=== PATIENT | female | born 1965 | race Caucasian/White ===

== ENCOUNTER 2016-10-12 21:44 | Inpatient (IN) | payer OTHER ==
[2016-10-12] MEDS ORDERED: TYLENOL 325 MG PO STA (22:36)
[2016-10-12] MEDS ORDERED: TYLENOL 325 MG ONE (22:43)
[2016-10-12] MEDS ORDERED: Levofloxacin 500MG/100ML D5W 100 ML IV ONE ×2 (22:46→22:51)
[2016-10-12] MEDS ORDERED: Sodium Chloride 0.9% 1000 ML 1,000 ML IV STA ×2 (22:46→23:56)
[2016-10-12] MEDS ORDERED: solu-MEDROL 125 MG IV ONE (22:46)
[2016-10-12] MEDS ORDERED: DUONEB 0.5-3 MG/3 ml Neb IH ONE ×2 (22:46→22:58)
--- NOTE | 2016-10-12 22:49 | ERPHSYRPT ---
- History of Present Illness Time Seen by Provider: 10/12/16 22:35 Source: patient Exam Limitations: clinical condition Patient Subjective Stated Complaint: reports malaise and fever onset since last week with symptoms getting worse since 2300 last night Triage Nursing Assessment: wc to treatment area - unsteady gait to cart per amputation. resps easy - non-labored. skin flushed/hot/dry - no rash/injury. resps easy - non-labored Physician History: PATIENT WITH HISTORY OF COPD, HOME OXYGEN DEPENDENT COMPLAINS OF FEVER, COUGH AND DYSPNEA FOR 1 WEEK, PROGRESSIVELY WORSE. STATES FEVER THROUGHOUT THE DAY. DENIES CHEST PAIN, PALPITATIONS. 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 Associated Symptoms: cough, muscle aches, sore throat International travel in last 2 weeks: No Allergies/Adverse Reactions: aspirin Allergy (Verified 10/12/16 22:23) Home Medications: Acetaminophen [Acetaminophen ER] 2 tab PO DAILY 10/13/16 [History] Albuterol Sulfate [Ventolin Hfa] 2 puff IH QID 10/13/16 [History] Diclofenac Sodium 75 mg PO BID 10/13/16 [History] Fluconazole 200 mg PO DAILY 10/13/16 [History] Lisinopril 10 mg [Zestril 10 MG] 10 mg PO DAILY 10/13/16 [History] Meloxicam 15 mg [Meloxicam 15 MG] 15 mg PO DAILY 10/13/16 [History] Mirtazapine 30 mg [Remeron 30 mg] 30 mg PO HS 10/13/16 [History] Tiotropium Anderson [Spiriva] 18 mcg IH DAILY 10/13/16 [History] Trazodone HCl 50 mg [Desyrel 50 mg] 50 mg PO STAT 10/13/16 [History] Hx Tetanus, Diphtheria Vaccination/Date Given: No Hx Influenza Vaccination/Date Given: No Hx Pneumococcal Vaccination/Date Given: No Immunizations Up to Date: Yes - Review of Systems Constitutional: Fever, Chills Eyes: No Symptoms Ears, Nose, & Throat: No Symptoms Respiratory: Cough, Dyspnea Cardiac: No Symptoms, No Chest Pain, No Edema, No Syncope Abdominal/Gastrointestinal: No Symptoms, No Abdominal Pain, No Nausea, No Vomiting, No Diarrhea Genitourinary Symptoms: Dysuria Musculoskeletal: Arthralgias, No Back Pain, No Neck Pain Skin: No Rash Neurological: No Dizziness, No Focal Weakness, No Sensory Changes Psychological: No Symptoms Endocrine: No Symptoms All Other Systems: Reviewed and Negative - Past Medical History Pertinent Past Medical History: Yes Neurological History: Migraines, Seizures, Other ENT History: No Pertinent History Cardiac History: Aneurysm, Hypertension, Other Respiratory History: COPD, Emphysema Endocrine Medical History: No Pertinent History Musculoskeletal History: Other GI Medical History: No Pertinent History History: No Pertinent History Psycho-Social History: Anxiety, Depression Female Reproductive Disorders: Cervical Cancer Other Medical History: RT LOBECTOMY, DVT while - Past Surgical History Past Surgical History: Yes Neuro Surgical History: No Pertinent History Cardiac: Cardiac Catheterization Respiratory: Lobectomy Gastrointestinal: Hernia Repair Musculoskeletal: Amputation, Other Female Surgical History: Hysterectomy Other Surgical History: 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 carpel tunnel - Social History Smoking Status: Current every day smoker How long have you smoked: 30 Exposure to second hand smoke: No Drug Use: none Patient Lives Alone: No Significant Family History: no pertinent family hx - Female History Hx Last Menstrual Period: n/a Hx Now: No - Nursing Vital Signs Nursing Vital Signs: Initial Vital Signs Temperature 102.0 F Temperature Source Oral Pulse Rate 89 Respiratory Rate 20 Blood Pressure [] 90/59 Pain Intensity 1 - Physical Exam General Appearance: mild distress Eye Exam: PERRL/EOMI ENT Exam: normal ENT inspection, No pharyngeal erythema, No tonsillar exudate Neck Exam: supple, full range of motion, No meningismus Respiratory Exam: no respiratory distress, decreased breath sounds, decreased air movement, wheezing (TERMINAL EXPIRATORY WHEEZE) Cardiovascular/Chest Exam: normal heart sounds, regular rate/rhythm, No murmur, No edema Gastrointestinal/Abdominal Exam: soft, non tender, no distention Extremity Exam: non-tender, normal range of motion, normal inspection, normal capillary refill Neurologic Exam: alert, oriented x 3, cooperative, car builder II-XII nml as tested, normal mood/affect, sensation nml, No motor deficits Skin Exam: normal color, warm, dry, No rash SpO2 Interpretation: hypoxic SpO2: 90 Oxygen Delivery: Room Air - Course EKG Interpreted by Me: RATE, Sinus Tach, Other (INFERIOR ST SEGMENT DEPRESSION) - Radiology Exams Chest X-ray Interpretation: Interpreted by me (COPD, PREVIOUS RIGHT LOBECTOMY, RIGHT INFRAHILAR INFILTRATE, ) Ordered Tests: Active Orders 24 hr Category Date Time Status Up With Assistance ROUTINE Activity 10/13/16 01:17 Active Admission/Status Order ROUTINE Care 10/13/16 01:17 Active Cath [Catheter-Nubieber Rain] STAT Care 10/12/16 23:36 Active Code Status Order ROUTINE Care 10/13/16 01:17 Active EKG-ER Only STAT Care 10/12/16 22:46 Active IV Care Q6H Care 10/13/16 01:17 Active IV Insertion STAT Care 10/12/16 22:46 Active Intake and Output 09,13,18,21 Care 10/13/16 01:17 Active Oxygen-ED Only NASAL CANNULA 2 lpm Care 10/12/16 22:46 Active Adebayo Hose, Apply ROUTINE Care 10/13/16 01:17 Active Telemetry ROUTINE Care 10/13/16 01:17 Active Vital Signs Q4H Care 10/13/16 01:17 Active Weight,Daily 0600 Care 10/13/16 01:17 Active Regular Diet Diet 10/13/16 Breakfast Active CHEST 1 VIEW (PORTABLE) Stat Exams 10/12/16 22:46 Taken ARTERIAL BLOOD GASES Urgent Lab 10/12/16 22:46 Results BLOOD CULTURE Stat Lab 10/12/16 23:20 Received CBC AM.LAB Lab 10/13/16 04:00 Ordered CBC W DIFF Stat Lab 10/12/16 22:45 Results CMP Stat Lab 10/12/16 22:45 Completed CULTURE, THROAT Stat Lab 10/12/16 22:50 Received Lactic Acid Stat Lab 10/13/16 01:16 Ordered Lactic Acid Urgent Lab 10/12/16 22:46 Results MAGNESIUM Stat Lab 10/12/16 22:45 Completed Manual Differential NC Stat Lab 10/12/16 22:45 Results PROTIME WITH INR Stat Lab 10/12/16 22:45 Completed Pathologist Review Stat Lab 10/12/16 22:45 Results STREP SCREEN-BETA A Stat Lab 10/12/16 22:50 Completed TROPONIN Q3H Lab 10/12/16 22:45 Completed TROPONIN Q3H Lab 10/13/16 02:00 Ordered TROPONIN Q3H Lab 10/13/16 05:00 Ordered TROPONIN Q3H Lab 10/13/16 08:00 Ordered TROPONIN Q3H Lab 10/13/16 11:00 Ordered UA W/ MICROSCOPIC Stat Lab 10/12/16 23:30 Completed VENOUS BLOOD GAS Stat Lab 10/12/16 23:34 Completed Oxygen NASAL CANNULA 2 lpm RT 10/13/16 01:17 Active Pulse Oximetry CONTINUOUS RT 10/13/16 01:19 Active Respiratory Nebulizer Q4H RT 10/13/16 01:17 Active Respiratory Nebulizer STAT RT 10/12/16 22:47 Completed Respiratory Nebulizer STAT RT 10/13/16 00:20 Active Respiratory Nebulizer STAT RT 10/13/16 01:22 Active Respiratory Therapy Consult ROUTINE RT 10/13/16 01:17 Active Transfer Order Routine Transfer 10/13/16 01:16 Ordered Medication Summary Generic Name Dose Route Start Last Admin Trade Name Freq PRN Reason Stop Dose Admin Acetaminophen 500 mg 10/13/16 01:29 Tylenol Extra Strength 500 Mg PO 11/12/16 01:28 Q4HPRN PRN FEVER Piperacillin Sod/Tazobactam Sod 100 mls @ 100 mls/hr 10/13/16 06:00 Zosyn 3.375gm/100 Ml D5w IV 11/12/16 05:59 Q8HT SHRUTHI Sodium Chloride 1,000 mls @ 100 mls/hr 10/13/16 01:30 Sodium Chloride 0.9% 1000 Ml IV 11/12/16 01:29 .Q10H SHRUTHI Levalbuterol HCl 1.25 mg 10/13/16 01:21 Xopenex 1.25 Mg/0.5 Ml Ud Nebule IH 11/12/16 01:20 Q2HPRN PRN DIFFICULTY BREATHING Methylprednisolone Sodium Succinate 80 mg 10/13/16 06:00 Solu-Medrol 125 Mg IV 11/12/16 05:59 Q6HT SHRUTHI Discontinued Medications Generic Name Dose Route Start Last Admin Trade Name Freq PRN Reason Stop Dose Admin Acetaminophen 650 mg 10/12/16 22:36 10/12/16 22:45 Tylenol 325 Mg PO 10/12/16 22:37 650 mg STAT STA Administration Acetaminophen Confirm 10/12/16 22:43 Tylenol 325 Mg Administered 10/12/16 22:44 Dose 650 mg .ROUTE .STK-MED ONE Albuterol/Ipratropium 3 ml 10/12/16 22:46 Duoneb 0.5-3 Mg/3 Ml Neb IH 10/12/16 22:47 STAT ONE Albuterol/Ipratropium Confirm 10/12/16 22:58 Duoneb 0.5-3 Mg/3 Ml Neb Administered 10/12/16 22:59 Dose 3 ml IH .STK-MED ONE Albuterol/Ipratropium 3 ml 10/13/16 00:20 10/13/16 00:41 Duoneb 0.5-3 Mg/3 Ml Neb IH 10/13/16 00:21 3 ml STAT ONE Administration Albuterol/Ipratropium Confirm 10/13/16 00:39 Duoneb 0.5-3 Mg/3 Ml Neb Administered 10/13/16 00:40 Dose 3 ml IH .STK-MED ONE Levofloxacin/Dextrose 100 mls @ 100 mls/hr 10/12/16 22:46 10/12/16 22:57 Levofloxacin 500mg/100ml D5w IV 10/12/16 23:45 100 mls/hr STAT ONE Administration Sodium Chloride 1,000 mls @ 999 mls/hr 10/12/16 22:46 10/12/16 22:57 Sodium Chloride 0.9% 1000 Ml IV 10/12/16 23:46 999 mls/hr .Q1H1M STA Administration Sodium Chloride Confirm 10/12/16 22:50 Sodium Chloride 0.9% 1000 Ml Administered 10/12/16 22:51 Dose 1,000 mls @ ud .ROUTE .STK-MED ONE Levofloxacin/Dextrose Confirm 10/12/16 22:51 Levofloxacin 500mg/100ml D5w Administered 10/12/16 22:52 Dose 100 mls @ ud IV .STK-MED ONE Piperacillin Sod/Tazobactam Sod 100 mls @ 100 mls/hr 10/12/16 23:55 10/13/16 00:01 Zosyn 3.375gm/100 Ml D5w IV 10/13/16 00:54 100 mls/hr STAT ONE Administration Sodium Chloride 1,000 mls @ 999 mls/hr 10/12/16 23:56 10/13/16 01:05 Sodium Chloride 0.9% 1000 Ml IV 10/13/16 00:56 999 mls/hr .Q1H1M STA Administration Piperacillin Sod/Tazobactam Sod Confirm 10/12/16 23:58 Zosyn 3.375gm/100 Ml D5w Administered 10/12/16 23:59 Dose 100 mls @ ud IV .STK-MED ONE Sodium Chloride Confirm 10/13/16 01:03 Sodium Chloride 0.9% 1000 Ml Administered 10/13/16 01:04 Dose 1,000 mls @ ud .ROUTE .STK-MED ONE Methylprednisolone Sodium Succinate 125 mg 10/12/16 22:46 10/12/16 22:55 Solu-Medrol 125 Mg IV 10/12/16 22:47 125 mg STAT ONE Administration Methylprednisolone Sodium Succinate Confirm 10/12/16 22:50 Solu-Medrol 125 Mg Administered 10/12/16 22:51 Dose 125 mg .ROUTE .STK-MED ONE Lab/Rad Data: Laboratory Result Diagrams 10/12/16 22:45 10/12/16 22:45 Laboratory Results 10/12/16 10/12/16 10/12/16 Range/Units 23:34 23:30 22:50 WBC (4.0-10.5) K/mm3 RBC (4.1-5.4) M/mm3 Hgb (12.0-16.0) gm/dl Hct (35-47) % MCV (78-100) fl MCH (26-32) pg MCHC (32-36) g/dl RDW (11.5-14.0) % Plt Count (150-450) K/mm3 MPV (6-9.5) fl Smear Path Review INR (0.8-3.0) Puncture Site pCO2 (35-45) mmHg pO2 (75-100) mmHg Base Excess (-2.0-2.0) O2 Saturation (94-100) g/dF ABG pH (7.35-7.45) ABG HCO3 (22-28) ABG O2 Sat (Measured) (95-100) % Rich Test VBG pH 7.38 (7.32-7.42) VBG pCO2 at Pat Temp 32 L (42-55) mm/Hg VBG pO2 at Pat Temp 40 (25-40) mm/Hg VBG HCO3 18.9 L (22-28) meq/L VBG O2 Sat (Arleen) 78.1 L (95-100) VBG Base Excess -5.3 L (-2.0-2.0) VBG Hemoglobin 12.9 VBG Carboxyhemoglobin 5.1 (0.0-6.9) % T HGB A-a Gradient a/A Ratio Hemoglobin Carboxyhemoglobin (0.0-6.9) % THgb Methemoglobin (1.4-1.5) % POC Potassium 3.7 (3.5-5.1) Temperature C POC O2 Flow Rate % Sodium (136-145) mEq/L Potassium (3.5-5.1) mEq/L Chloride (98-107) mEq/L Carbon Dioxide (21-32) mEq/L Anion Gap (5-15) MEQ/L BUN (9-20) mg/dL Creatinine (0.55-1.30) mg/dl Estimated GFR ML/MIN Glucose (70-110) MG/DL Lactic Acid (0.4-2.0) Calcium (8.5-10.1) mg/dL Magnesium (1.8-2.4) mg/dL Total Bilirubin (0.2-1.0) mg/dL AST (15-37) U/L ALT (12-78) U/L Alkaline Phosphatase (46-116) U/L Troponin I (0.000-0.056) ng/ml Serum Total Protein (6.4-8.2) gm/dL Albumin (3.4-5.0) g/dL Ur Collection Type CATH Urine Color YELLOW (YELLOW) Urine Appearance CLOUDY (CLEAR) Urine pH 5.0 (5-6) Ur Specific [place] >=1.030 (1.005-1.025) Urine Protein 100 (Negative) Urine Glucose (UA) NEGATIVE (NEGATIVE) mg/dL Urine Ketones TRACE (NEGATIVE) Urine Nitrite NEGATIVE (NEGATIVE) Urine Bilirubin MODERATE (NEGATIVE) Urine Urobilinogen 2 (0-1) mg/dL Urine WBC (Auto) SMALL (NEGATIVE) Urine RBC (Auto) SMALL (0-5) Karri/ul Urine Microscopic RBC 2-5 (0-2) /HPF Urine Microscopic WBC 5-10 (0-5) /HPF Ur Epithelial Cells FEW (FEW) /HPF Urine Bacteria FEW (NEGATIVE) /HPF Urine Mucus SLIGHT (NEGATIVE) /HPF Streptococcus Screen NEGATIVE (Negative) Specimen Received 10/12/16:2330 10/12/16 10/12/16 10/12/16 Range/Units 22:46 22:45 22:45 WBC (4.0-10.5) K/mm3 RBC (4.1-5.4) M/mm3 Hgb (12.0-16.0) gm/dl Hct (35-47) % MCV (78-100) fl MCH (26-32) pg MCHC (32-36) g/dl RDW (11.5-14.0) % Plt Count (150-450) K/mm3 MPV (6-9.5) fl Smear Path Review INR 1.29 (0.8-3.0) Puncture Site Pending pCO2 32 L (35-45) mmHg pO2 40 L* (75-100) mmHg Base Excess -5.3 L (-2.0-2.0) O2 Saturation 73.4 L (94-100) g/dF ABG pH 7.38 (7.35-7.45) ABG HCO3 18.9 L (22-28) ABG O2 Sat (Measured) 78.1 L (95-100) % Rich Test Pending VBG pH (7.32-7.42) VBG pCO2 at Pat Temp (42-55) mm/Hg VBG pO2 at Pat Temp (25-40) mm/Hg VBG HCO3 (22-28) meq/L VBG O2 Sat (Arleen) (95-100) VBG Base Excess (-2.0-2.0) VBG Hemoglobin VBG Carboxyhemoglobin (0.0-6.9) % T HGB A-a Gradient 70 a/A Ratio 0.36 Hemoglobin 12.9 Carboxyhemoglobin 5.1 (0.0-6.9) % THgb Methemoglobin 0.9 L (1.4-1.5) % POC Potassium (3.5-5.1) Temperature 37.0 C POC O2 Flow Rate 21 % Sodium (136-145) mEq/L Potassium 3.7 (3.5-5.1) mEq/L Chloride (98-107) mEq/L Carbon Dioxide (21-32) mEq/L Anion Gap (5-15) MEQ/L BUN (9-20) mg/dL Creatinine (0.55-1.30) mg/dl Estimated GFR ML/MIN Glucose (70-110) MG/DL Lactic Acid 2.0 (0.4-2.0) Calcium (8.5-10.1) mg/dL Magnesium (1.8-2.4) mg/dL Total Bilirubin (0.2-1.0) mg/dL AST (15-37) U/L ALT (12-78) U/L Alkaline Phosphatase (46-116) U/L Troponin I < 0.017 (0.000-0.056) ng/ml Serum Total Protein (6.4-8.2) gm/dL Albumin (3.4-5.0) g/dL Ur Collection Type Urine Color (YELLOW) Urine Appearance (CLEAR) Urine pH (5-6) Ur Specific [place] (1.005-1.025) Urine Protein (Negative) Urine Glucose (UA) (NEGATIVE) mg/dL Urine Ketones (NEGATIVE) Urine Nitrite (NEGATIVE) Urine Bilirubin (NEGATIVE) Urine Urobilinogen (0-1) mg/dL Urine WBC (Auto) (NEGATIVE) Urine RBC (Auto) (0-5) Karri/ul Urine Microscopic RBC (0-2) /HPF Urine Microscopic WBC (0-5) /HPF Ur Epithelial Cells (FEW) /HPF Urine Bacteria (NEGATIVE) /HPF Urine Mucus (NEGATIVE) /HPF Streptococcus Screen (Negative) Specimen Received 10/12/16 10/12/16 Range/Units 22:45 22:45 WBC 28.7 H* (4.0-10.5) K/mm3 RBC 4.51 (4.1-5.4) M/mm3 Hgb 14.4 (12.0-16.0) gm/dl Hct 42.3 (35-47) % MCV 93.8 (78-100) fl MCH 31.9 (26-32) pg MCHC 34.0 (32-36) g/dl RDW 13.3 (11.5-14.0) % Plt Count 439 (150-450) K/mm3 MPV 11.1 H (6-9.5) fl Smear Path Review Pending INR (0.8-3.0) Puncture Site pCO2 (35-45) mmHg pO2 (75-100) mmHg Base Excess (-2.0-2.0) O2 Saturation (94-100) g/dF ABG pH (7.35-7.45) ABG HCO3 (22-28) ABG O2 Sat (Measured) (95-100) % Rich Test VBG pH (7.32-7.42) VBG pCO2 at Pat Temp (42-55) mm/Hg VBG pO2 at Pat Temp (25-40) mm/Hg VBG HCO3 (22-28) meq/L VBG O2 Sat (Arleen) (95-100) VBG Base Excess (-2.0-2.0) VBG Hemoglobin VBG Carboxyhemoglobin (0.0-6.9) % T HGB A-a Gradient a/A Ratio Hemoglobin Carboxyhemoglobin (0.0-6.9) % THgb Methemoglobin (1.4-1.5) % POC Potassium (3.5-5.1) Temperature C POC O2 Flow Rate % Sodium 134 L (136-145) mEq/L Potassium 4.4 (3.5-5.1) mEq/L Chloride 100 (98-107) mEq/L Carbon Dioxide 20.4 L (21-32) mEq/L Anion Gap 18.3 H (5-15) MEQ/L BUN 28 H (9-20) mg/dL Creatinine 1.30 (0.55-1.30) mg/dl Estimated GFR 46 ML/MIN Glucose 225 H (70-110) MG/DL Lactic Acid (0.4-2.0) Calcium 8.5 (8.5-10.1) mg/dL Magnesium 1.7 L (1.8-2.4) mg/dL Total Bilirubin 0.2 (0.2-1.0) mg/dL AST 12 L (15-37) U/L ALT 9 L (12-78) U/L Alkaline Phosphatase 152 H (46-116) U/L Troponin I (0.000-0.056) ng/ml Serum Total Protein 6.2 L (6.4-8.2) gm/dL Albumin 2.6 L (3.4-5.0) g/dL Ur Collection Type Urine Color (YELLOW) Urine Appearance (CLEAR) Urine pH (5-6) Ur Specific [place] (1.005-1.025) Urine Protein (Negative) Urine Glucose (UA) (NEGATIVE) mg/dL Urine Ketones (NEGATIVE) Urine Nitrite (NEGATIVE) Urine Bilirubin (NEGATIVE) Urine Urobilinogen (0-1) mg/dL Urine WBC (Auto) (NEGATIVE) Urine RBC (Auto) (0-5) Karri/ul Urine Microscopic RBC (0-2) /HPF Urine Microscopic WBC (0-5) /HPF Ur Epithelial Cells (FEW) /HPF Urine Bacteria (NEGATIVE) /HPF Urine Mucus (NEGATIVE) /HPF Streptococcus Screen (Negative) Specimen Received - Progress Progress Note: 10/12/16 23:13 PATIENT PLACED ONTO SEPSIS PROTOCOL GIVEN BOLUS NORMAL SALINE 1 LITER/HR X 2, ADMINISTERED 2L OXYGEN NASAL CANULA, DUONEB AEROSOL, LEVAQUIN 500MG IVPB, ZOSYN 3.375GM IVPB AFTER 2 SETS OF BLOOD CULTURES OBTAINED. 10/12/16 23:13 10/13/16 00:48 10/13/16 01:11 10/13/16 01:31 Discussed with : Mikal Other (DISCUSSED WITH DR LUNA AT 0105 FOR ADMISSION ) - Departure Time of Disposition: 01:30 Departure Disposition: In-patient Admission Clinical Impression: ACUTE EXACERBATION COPD, PNEUMONIA, URINARY TRACT INFECTION Condition: Stable Critical Care Time: No Referrals: JC FISHER [Primary Care Provider] -
[2016-10-12] MEDS ORDERED: solu-MEDROL 125 MG ONE (22:50)
[2016-10-12] MEDS ORDERED: Sodium Chloride 0.9% 1000 ML 1,000 ML ONE (22:50)
[2016-10-12 22:55] LABS: Mean Cell Volume 93.8 fl (78-100); Mean Corpuscular Hemoglobin 31.9 pg (26-32); Mean Platelet Volume 11.1 fl (6-9.5); Platelet Count 439 K/mm3 (150-450); Red Blood Count 4.51 M/mm3 (4.1-5.4); Red Cell Distribution Width 13.3 % (11.5-14.0)
[2016-10-12 23:03] LABS: White Blood Count 28.7 K/mm3 (4.0-10.5)
[2016-10-12 23:11] LABS: INR 1.29 (0.8-3.0); PROTIME 14.3 SECONDS (9.95-12.35)
[2016-10-12 23:19] LABS: ALBUMIN 2.6 g/dL (3.4-5.0); ANION GAP 18.3 MEQ/L (5-15); BILIRUBIN,TOTAL 0.2 mg/dL (0.2-1.0); Carbon Dioxide 20.4 mEq/L (21-32); MAGNESIUM 1.7 mg/dL (1.8-2.4); Potassium 4.4 mEq/L (3.5-5.1); Total Protein 6.2 gm/dL (6.4-8.2)
[2016-10-12 23:35] LABS: VBG BASE EXCESS -5.3 (-2.0-2.0); VBG CARBOXYHEMOGLOBIN 5.1 % T HGB (0.0-6.9); VBG HCO3- 18.9 meq/L (22-28); VBG HEMOGLOBIN 12.9; VBG O2 SATURATION 78.1 (95-100); VBG POTASSIUM 3.7 (3.5-5.1); VBG pH 7.38 (7.32-7.42)
[2016-10-12 23:49] LABS: Bacteria FEW /HPF (NEGATIVE); COMPLETE URINE MICROSCOPIC? YES; Collection Type CATH; Epithelial Cells FEW /HPF (FEW); Mucus SLIGHT /HPF (NEGATIVE)
[2016-10-12] MEDS ORDERED: Zosyn 3.375GM/100 Ml D5W 100 ML IV ONE ×2 (23:55→23:58)
[2016-10-13] MEDS ORDERED: DUONEB 0.5-3 MG/3 ml Neb IH ONE ×3 (00:20→02:59)
[2016-10-13 00:54] LABS: A-aADO2 70; ARTERIAL BLD GAS O2 SATURATION 78.1 % (95-100); ARTERIAL BLOOD GAS BASE EXCESS -5.3 (-2.0-2.0); ARTERIAL BLOOD GAS FIO2 21 %; ARTERIAL BLOOD GAS pH 7.38 (7.35-7.45)
[2016-10-13 00:55] LABS: ARTERIAL BLOOD GAS PO2 40 mmHg (75-100)
[2016-10-13] MEDS ORDERED: Sodium Chloride 0.9% 1000 ML 1,000 ML ONE (01:03)
[2016-10-13] MEDS ORDERED: Xopenex 1.25 MG/0.5 ML UD NEBULE IH PRN (01:21)
[2016-10-13] MEDS ORDERED: TYLENOL EXTRA STRENGTH 500 MG PO PRN (01:29)
[2016-10-13 01:37] LABS: ALLEN TEST OK? YES
[2016-10-13 02:21] LABS: ATYPICAL LYMPHS 2 %; Total Cells Counted 100
[2016-10-13 02:22] LABS: ANISOCYTOSIS 1+; Platelet Estimate NORMAL (NORMAL)
[2016-10-13] MEDS: Sodium Chloride 0.9% 1000 ML 1,000 ML IV SCH ×2 (05:37→16:28)
[2016-10-13] MEDS: solu-MEDROL 125 MG IV SCH ×3 (05:37→17:21)
[2016-10-13 06:17] LABS: Mean Platelet Volume 11.3 fl (6-9.5); Platelet Count 384 K/mm3 (150-450); Red Blood Count 3.53 M/mm3 (4.1-5.4); Red Cell Distribution Width 13.4 % (11.5-14.0)
[2016-10-13] MEDS: Zosyn 3.375GM/100 Ml D5W 100 ML IV SCH ×3 (06:40→22:34)
[2016-10-13] MEDS: Spiriva 18 Mcg/Cap Inhaler IH SCH (06:45)
[2016-10-13] MEDS: DUONEB 0.5-3 MG/3 ml Neb IH SCH ×5 (06:45→22:34)
--- NOTE | 2016-10-13 09:26 | HP ---
HISTORY OF PRESENT ILLNESS: This is a 51 year-old patient of Dr. Dejon Stoner who presented to the emergency department. She states that she felt like "Total crap". She states it started two weeks ago, was worse Tuesday night with fatigue and sleeping all night until Tuesday. She reports that she always has a cough and there has not been any change to it. She reports two weeks ago she had a flu immunization and last week she had vomiting but no diarrhea. She reports a fever x2 weeks that was tactile and not measured. She reports a long history of chronic obstructive pulmonary disease including having a lung surgery for a bullae and having oxygen ordered at home which she is supposed to wear all the time but just takes as needed. She also reports that she has been losing weight for the past two months and her baseline weight is usually 92 lbs. REVIEW OF SYSTEMS: She has hip pain and a headache. No nausea or vomiting. She has cough and shortness of breath. No abdominal pain. She reports feeling like her hands are swollen. No rashes. PAST MEDICAL HISTORY: Emphysema with home oxygen at 2 liters and history of arthritis in her hips, headache, seizure disorder, history of brain aneurysm repaired. PAST SURGICAL HISTORY: Brain aneurysm. 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 She has a prosthesis that she wears for this. The aneurysm of her brain was repaired in 1998. 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 She has had hernia surgery, bilateral carpal tunnel surgery, hysterectomy. MEDICATIONS: Acetaminophen 2 tablets p.o. daily as needed, Albuterol 2 puffs four times a day, diclofenac 75 mg b.i.d., lisinopril 10 mg q.a.m., meloxicam 15 mg p.o. daily, Remeron 30 mg p.o. q.h.s., Dilantin 100 mg in the morning and 200 mg in the evening. Spiriva 18 mcg daily, trazodone 50 mg b.i.d. ALLERGIES: ASPIRIN. SOCIAL HISTORY: She smokes one half pack per day. She denies any illicit drug use, denies any alcohol. She is not employed. She lives with her boyfriend and reports she rides in his semi with him when he travels. FAMILY HISTORY: Her mother is and had chronic obstructive pulmonary disease and cancer all over her body, the patient reports. Her father is and had lung cancer and when he was 52 years old. PHYSICAL EXAMINATION: VITAL SIGNS: Temperature current 97.6F, temperature max 102F, heart rate 71 to 120 currently 78, respiratory rate 16 to 30 currently 18, blood pressure 92 to 115 over 44 to 64, currently 93/58, weight 34.3 kg. Oxygen saturation 90 to 96% on room air. She is currently on 2 liters oxygen by nasal cannula. GENERAL: The patient is lying in bed, alert and talkative. Her boyfriend's mother is at the bedside. CVS: She has a regular rate and rhythm. CHEST: Clear to auscultation bilaterally. No crackles or wheezes are appreciated. She has equal breath sounds. ABDOMEN: Soft, nontender, nondistended with normal bowel sounds. HEENT: Head - She has a well healed scar on her left scalp area. EXTREMITIES: She has right above knee amputation. No clubbing, cyanosis or edema of her left lower extremity. No rashes. LABORATORY DATA AND TESTS: White blood cell count 28,700 on admission. Repeat white blood cell count this morning was 21,000. Differential last night was 83% neutrophils, 4% lymphs, 11% monocytes. Sodium 134, carbon dioxide 20.4, glucose 225, lactic acid 2.0 yesterday and 1.1 this morning. She has had three serial troponins that have all been negative. UA with 5 to 10 white blood cells. Influenza A and B, respiratory syncytial virus and strep were all negative. Chest x-ray has not been formally read by the radiologist yet. It was read as an infiltrate by the emergency room physician. ASSESSMENT AND PLAN: 1) Pneumonia. She has been started on Levaquin and Zosyn, will continue with these at this time. I have ordered a sputum culture. She has blood cultures in lab. 2) Sepsis. She was placed on sepsis protocol in the emergency room and has received fluids. Her blood pressure continues to be on the low end of normal, will continue to monitor this closely. Will repeat her BMP this a.m. Her white blood cell count is improving. 3) Chronic obstructive pulmonary disease. Will continue with IV steroids, breathing treatments, and oxygen as needed. 4) Renal insufficiency. Her creatinine was slightly elevated on her admission again will repeat this and hold her NSAID's at this time. I explained to the patient that she should not be taking both meloxicam and diclofenac as these are both on her home medication list. 5) Tobacco abuse. The patient was counseled that she needs to quit smoking, will order her a nicotine patch. 6) Hip pain. Due to her renal insufficiency will hold the NSAID's and give her hydrocodone 5/325 mg 1 tablet every four hours as needed for pain while she is here in the hospital. She will need to follow up with primary care doctor concerning her fpc pain control. 7) Deep venous thrombosis prophylaxis. Will start Lovenox.
--- NOTE | 2016-10-13 09:42 | XRAY ---
Indication: Cough and dyspnea. Comparison: August 10, 2016. Portable chest again hyperinflated with bullous emphysema, right mid/lower lung atelectasis/scarring, and right upper lung postsurgical changes. No new infiltrate, consolidation, or large effusion. Heart and mediastinal structures stable and within normal limits. Bony thorax intact again with old left sixth rib fracture. Impression: Stable nonacute chest again with chronic features.
[2016-10-13] MEDS ORDERED: Spiriva 18 Mcg/Cap Inhaler IH SCH (10:00)
[2016-10-13] MEDS: Dilantin 100 MG PO SCH ×2 (10:06→21:24)
[2016-10-13] MEDS: DESYREL 50 MG PO SCH ×2 (10:06→21:25)
[2016-10-13] MEDS: NICODERM CQ 14 MG TOP SCH (10:06)
[2016-10-13] MEDS: NORCO 5/325 MG PO PRN ×3 (10:06→22:33)
[2016-10-13] MEDS: ENOXAPARIN SODIUM SQ SCH (10:06)
[2016-10-13 11:57] LABS: ANION GAP 13.5 MEQ/L (5-15); BLOOD UREA NITROGEN 25 mg/dL (9-20); CHLORIDE 107 mEq/L (98-107); Carbon Dioxide 19.4 mEq/L (21-32); Glucose 225 MG/DL (70-110); Potassium 3.9 mEq/L (3.5-5.1); SODIUM 136 mEq/L (136-145)
[2016-10-13] MEDS ORDERED: NovoLOG Insulin SQ PRN (17:08)
[2016-10-13] MEDS: REMERON 30 MG PO SCH (21:25)
[2016-10-13] MEDS ORDERED: Levaquin 250MG/50ML D5W 50 ML IV SCH (22:00)
[2016-10-14] MEDS: solu-MEDROL 125 MG IV SCH ×4 (00:30→21:49)
[2016-10-14] MEDS: DUONEB 0.5-3 MG/3 ml Neb IH SCH ×5 (03:56→19:28)
[2016-10-14] MEDS: Sodium Chloride 0.9% 1000 ML 1,000 ML IV SCH ×2 (04:10→15:45)
[2016-10-14] MEDS: Zosyn 3.375GM/100 Ml D5W 100 ML IV SCH ×3 (05:32→13:47)
[2016-10-14] MEDS: NORCO 5/325 MG PO PRN ×3 (05:32→21:58)
[2016-10-14 05:40] LABS: Mean Cell Volume 95.7 fl (78-100); Mean Corpuscular Hemoglobin 31.2 pg (26-32); Mean Platelet Volume 10.4 fl (6-9.5); Platelet Count 435 K/mm3 (150-450); Red Blood Count 3.46 M/mm3 (4.1-5.4); Red Cell Distribution Width 13.5 % (11.5-14.0); White Blood Count 19.5 K/mm3 (4.0-10.5)
[2016-10-14 05:59] LABS: ANION GAP 14.4 MEQ/L (5-15); BLOOD UREA NITROGEN 14 mg/dL (9-20); CHLORIDE 111 mEq/L (98-107); Carbon Dioxide 22.8 mEq/L (21-32); Glucose 197 MG/DL (70-110); Potassium 3.9 mEq/L (3.5-5.1); SODIUM 144 mEq/L (136-145)
[2016-10-14 06:17] LABS: Total Cells Counted 100
[2016-10-14 06:18] LABS: ANISOCYTOSIS 1+; Platelet Estimate NORMAL (NORMAL); Poikilocytosis 1+
[2016-10-14] MEDS: Spiriva 18 Mcg/Cap Inhaler IH SCH (06:40)
--- NOTE | 2016-10-14 09:32 | PCM.NOTE ---
Date and Time: 10/14/16926 Subjective Assessment: She reports she in general just feels bad. She continues to have some cough and shortness of breath. Her appetite is better. She states she had a seizure last night where she was shakey and state she told her nurse about this. She reports missing her dilantin Tuesday and Tuesday but also reports having 4-5 seizures a month. She reports she does not see a Neurologist as an outpatient. She also reports she has never had high blood glucoses before but she does have a family history of diabetes. She has a documented weight gain, but denies feeling like she has any swelling. She reports the pain medication is helping with her back pain. - Review of Systems Constitutional: Fatigue Eyes: No Symptoms Ears, Nose, & Throat: No Symptoms Respiratory: Cough, Short Of Breath, Wheezing Cardiac: No Symptoms Abdominal/Gastrointestinal: No Symptoms Genitourinary Symptoms: No Symptoms Musculoskeletal: No Symptoms Skin: No Symptoms Neurological: No Symptoms Objective Exam General Appearance: no apparent distress, alert Neurologic Exam: alert, cooperative, normal mood/affect Skin Exam: normal color, warm, dry, No rash Respiratory Exam: lungs clear, airway intact, diminished breath sounds, No respiratory distress, No crackles/rales, No rhonchi, No wheezing Cardiovascular Exam: regular rate/rhythm, No murmur, No friction rub, No gallop Gastrointestinal/Abdomen Exam: soft, normal bowel sounds, No tenderness, No distention, No mass Extremity Exam: other (no c/c/e in right leg, 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) OBJECTIVE DATA Vital Signs: Vital Signs - 24 hr Temp Pulse Resp BP Pulse Ox 10/14/16 07:00 75 16 98 10/14/16 04:00 97.1 F 80 20 118/60 93 L 10/14/16 03:56 80 20 93 L 10/14/16 00:00 97.7 F 92 H 20 87/52 96 10/13/16 22:34 91 H 20 96 10/13/16 20:07 77 20 92 L 10/13/16 20:00 98.3 F 87 23 102/64 94 L 10/13/16 16:23 97.9 F 82 20 103/57 95 10/13/16 16:00 20 10/13/16 15:00 72 16 92 L 10/13/16 14:13 110/62 02/22/17 12:00 18 10/13/16 11:42 98 F 79 18 83/50 95 10/13/16 10:27 81 18 95 Oxygen-Last 24 hours O2 Percentage 2 Liters = 28% O2 Percentage 2 Liters = 28% O2 Percentage 2 Liters = 28% O2 Percentage 2 Liters = 28% Pain Assessment - Last Documented Pain Intensity 7 Pain Scale Used 0-10 Pain Scale Intake and Output: Intake & Output 10/12/16 10/13/16 10/14/16 10/15/16 06:59 06:59 06:59 06:59 Intake Total 511 4730 Output Total 450 1700 Balance 61 3030 Weight 34.337 kg 37.376 kg Lab Results: Lab Results-Last 24 Hours 10/13/16 10/13/16 10/14/16 Range/Units 11:00 11:00 05:06 WBC (4.0-10.5) K/mm3 RBC (4.1-5.4) M/mm3 Hgb (12.0-16.0) gm/dl Hct (35-47) % MCV (78-100) fl MCH (26-32) pg MCHC (32-36) g/dl RDW (11.5-14.0) % Plt Count (150-450) K/mm3 MPV (6-9.5) fl Segmented Neutrophils (36.0-66.0) % Lymphocytes (Manual) (24-44) % Monocytes (Manual) (0.0-12.0) % Platelet Estimate (NORMAL) Poikilocytosis Anisocytosis Sodium 136 (136-145) mEq/L Potassium 3.9 (3.5-5.1) mEq/L Chloride 107 (98-107) mEq/L Carbon Dioxide 19.4 L (21-32) mEq/L Anion Gap 13.5 (5-15) MEQ/L BUN 25 H (9-20) mg/dL Creatinine 0.94 (0.55-1.30) mg/dl Estimated GFR > 60 ML/MIN Glucose 225 H (70-110) MG/DL Hemoglobin A1c 6.0 (4.5-6.2) Calcium 7.8 L (8.5-10.1) mg/dL Troponin I < 0.017 (0.000-0.056) ng/ml 10/14/16 10/14/16 Range/Units 05:06 05:06 WBC 19.5 H (4.0-10.5) K/mm3 RBC 3.46 L (4.1-5.4) M/mm3 Hgb 10.8 L (12.0-16.0) gm/dl Hct 33.1 L (35-47) % MCV 95.7 (78-100) fl MCH 31.2 (26-32) pg MCHC 32.6 (32-36) g/dl RDW 13.5 (11.5-14.0) % Plt Count 435 (150-450) K/mm3 MPV 10.4 H (6-9.5) fl Segmented Neutrophils 95 H (36.0-66.0) % Lymphocytes (Manual) 3 L (24-44) % Monocytes (Manual) 2 (0.0-12.0) % Platelet Estimate NORMAL (NORMAL) Poikilocytosis 1+ Anisocytosis 1+ Sodium 144 (136-145) mEq/L Potassium 3.9 (3.5-5.1) mEq/L Chloride 111 H (98-107) mEq/L Carbon Dioxide 22.8 (21-32) mEq/L Anion Gap 14.4 (5-15) MEQ/L BUN 14 (9-20) mg/dL Creatinine 0.67 (0.55-1.30) mg/dl Estimated GFR > 60 ML/MIN Glucose 197 H (70-110) MG/DL Hemoglobin A1c (4.5-6.2) Calcium 8.2 L (8.5-10.1) mg/dL Troponin I (0.000-0.056) ng/ml Assessment/Plan (1) Pneumonia Current Visit: Yes Status: Acute Qualifiers: Laterality: left Lung location: unspecified part of lung Assessment & Plan: Continue with zosyn and levofloxacin. WBC count is improving. Code(s): J18.9 - PNEUMONIA, UNSPECIFIED ORGANISM (2) Sepsis Current Visit: Yes Status: Acute Assessment & Plan: She is slowly improving. Her blood pressure continues to be in the low end of normal and her home antihypertensive is being held. (3) COPD with acute exacerbation Current Visit: Yes Status: Acute Assessment & Plan: Will decrease IV steroids today. Continue with oxygen. Continue antibiotics and breathing treatments. Code(s): J44.1 - CHRONIC OBSTRUCTIVE PULMONARY DISEASE W (ACUTE) EXACERBATION (4) Renal insufficiency Current Visit: Yes Status: Acute Assessment & Plan: Improved after IV fluids. (5) History of seizure disorder Current Visit: Yes Status: Acute Assessment & Plan: Check Dilantin level and continue Dilantin. Instructed patient that she should probably see a Neurologist as an outpatient. Code(s): Z86.69 - PERSONAL HISTORY OF DIS OF THE NERVOUS SYS AND SENSE ORGANS
[2016-10-14] MEDS: NICODERM CQ 14 MG TOP SCH (09:44)
[2016-10-14] MEDS: ENOXAPARIN SODIUM SQ SCH (09:44)
[2016-10-14] MEDS: DESYREL 50 MG PO SCH ×2 (09:44→21:50)
[2016-10-14] MEDS: Dilantin 100 MG PO SCH ×2 (10:38→21:51)
[2016-10-14] MEDS: REMERON 30 MG PO SCH (21:50)
[2016-10-14] MEDS: Levofloxacin 500MG/100ML D5W 100 ML IV SCH (21:53)
[2016-10-15] MEDS: solu-MEDROL 125 MG IV SCH ×3 (05:24→22:24)
[2016-10-15] MEDS: NORCO 5/325 MG PO PRN ×3 (05:24→22:25)
[2016-10-15 05:48] LABS: Mean Cell Volume 97.1 fl (78-100); Mean Platelet Volume 10.7 fl (6-9.5); Platelet Count 498 K/mm3 (150-450); Red Blood Count 3.46 M/mm3 (4.1-5.4); White Blood Count 16.1 K/mm3 (4.0-10.5)
[2016-10-15 06:04] LABS: Mean Corpuscular Hemoglobin 32.3 pg (26-32)
[2016-10-15 06:29] LABS: ANION GAP 13.3 MEQ/L (5-15); BLOOD UREA NITROGEN 13 mg/dL (9-20); CHLORIDE 111 mEq/L (98-107); Carbon Dioxide 23.3 mEq/L (21-32); Glucose 116 MG/DL (70-110); Potassium 4.7 mEq/L (3.5-5.1); SODIUM 143 mEq/L (136-145)
[2016-10-15] MEDS: Zosyn 3.375GM/100 Ml D5W 100 ML IV SCH ×3 (06:46→22:20)
[2016-10-15 07:06] LABS: BAND 2 % (0.0-2.0); Platelet Estimate NORMAL (NORMAL); Total Cells Counted 100
[2016-10-15] MEDS: Spiriva 18 Mcg/Cap Inhaler IH SCH (07:37)
[2016-10-15] MEDS: DUONEB 0.5-3 MG/3 ml Neb IH SCH ×4 (07:37→18:31)
--- NOTE | 2016-10-15 08:54 | PCM.NOTE ---
Date and Time: 10/15/1649 Subjective Assessment: She reports that she feels anxious and has continue dyspnea. She had to have her oxygen increased last night and now she is on 5L O2. She currently does not have any home oxygen. She reports her boyfriend had to come back from his automobile or truck rental dispatcher because he is sick too. She reports being anxious about this. - Review of Systems Constitutional: Fatigue Eyes: No Symptoms Ears, Nose, & Throat: No Symptoms Respiratory: Cough, Short Of Breath, Wheezing Cardiac: No Symptoms Abdominal/Gastrointestinal: No Symptoms Genitourinary Symptoms: No Symptoms Musculoskeletal: No Symptoms Skin: No Symptoms Neurological: No Symptoms Objective Exam General Appearance: no apparent distress, alert Neurologic Exam: alert, cooperative, normal mood/affect Skin Exam: normal color, warm, dry, No rash Respiratory Exam: normal breath sounds, prolonged expirations, No crackles/rales , No rhonchi, No wheezing Cardiovascular Exam: regular rate/rhythm, normal heart sounds, No murmur, No friction rub, No gallop Gastrointestinal/Abdomen Exam: soft, normal bowel sounds, No tenderness, No distention, No mass, No guarding Extremity Exam: normal inspection, other (no c/c/e) OBJECTIVE DATA Vital Signs: Vital Signs - 24 hr Temp Pulse Resp BP BP Pulse Ox 10/15/16 08:00 97.9 F 73 18 142/81 130/69 93 L 10/15/16 07:43 66 18 93 L 10/15/16 04:00 98.1 F 68 20 135/87 95 10/15/16 00:00 22 10/14/16 23:24 98.0 F 87 22 124/74 93 L 10/14/16 20:00 97.8 F 87 24 130/69 90 L 10/14/16 19:42 92 H 24 90 L 10/14/16 16:00 97.4 F 88 24 137/86 92 L 10/14/16 14:22 87 20 92 L 10/14/16 12:00 20 10/14/16 11:06 97.8 F 87 20 100/57 91 L 10/14/16 10:36 71 16 97 Oxygen-Last 24 hours O2 Percentage 5 Liters = 40% O2 Percentage 5 Liters = 40% O2 Percentage 3 Liters = 32% O2 Percentage 3 Liters = 32% O2 Percentage 2 Liters = 28% O2 Percentage 2 Liters = 28% Pain Assessment - Last Documented Pain Intensity 6 Pain Scale Used 0-10 Pain Scale Intake and Output: Intake & Output 10/13/16 10/14/16 10/15/16 10/16/16 06:59 06:59 06:59 06:59 Intake Total 511 4730 3862 Output Total 450 1700 1150 Balance 61 3030 2712 Weight 34.337 kg 37.376 kg 39.179 kg Lab Results: Accuchecks Date 10/14/16 Date 10/14/16 Time 16:30 Time 11:30 Accucheck Value: 110 Accucheck Value: 158 Lab Results-Last 24 Hours 10/14/16 10/15/16 10/15/16 Range/Units 05:00 05:07 05:07 WBC 16.1 H (4.0-10.5) K/mm3 RBC 3.46 L (4.1-5.4) M/mm3 Hgb 11.2 L (12.0-16.0) gm/dl Hct 33.6 L (35-47) % MCV 97.1 (78-100) fl MCH 32.3 H (26-32) pg MCHC 33.3 (32-36) g/dl RDW 14.0 (11.5-14.0) % Plt Count 498 H (150-450) K/mm3 MPV 10.7 H (6-9.5) fl Segmented Neutrophils 92 H (36.0-66.0) % Band Neutrophils 2 (0.0-2.0) % Lymphocytes (Manual) 5 L (24-44) % Monocytes (Manual) 1 (0.0-12.0) % Differential Comment NORMAL Platelet Estimate NORMAL (NORMAL) Sodium 143 (136-145) mEq/L Potassium 4.7 (3.5-5.1) mEq/L Chloride 111 H (98-107) mEq/L Carbon Dioxide 23.3 (21-32) mEq/L Anion Gap 13.3 (5-15) MEQ/L BUN 13 (9-20) mg/dL Creatinine 0.61 (0.55-1.30) mg/dl Estimated GFR > 60 ML/MIN Glucose 116 H (70-110) MG/DL Calcium 7.8 L (8.5-10.1) mg/dL Phenytoin 11.8 (10-20) ug/ml Multi-Disciplinary Progress Notes: Multi-Disciplinary Progress Notes 10/14/16 21:35 Respiratory Note by Lindsay,Camilo CALLED TO PT RM DUE TO LOW SATS. PT WAS 89% ON 3LPM. SHE STATES SHE WEARS 2LPM PRN AT [facility]. THIS ISSUE OF LOW SATS WHILE ON O2 HAS STARTED THIS KAROL. I TURNED O2 UP TO 4 AND PT CAME UP TO 91%. I SWITCHED HER TO 4LPM OXY MASK AND SHE CAME UP TO 95%. I TURNED IT DOWN TO 3LPM AND SHE MAINTAINED A SAT OF 94%. LEFT HER ON 3LPM AND INFORMED NURSING. Initialized on 10/14/16 21:35 - END OF NOTE Assessment/Plan (1) Pneumonia Current Visit: Yes Status: Acute Qualifiers: Laterality: left Lung location: unspecified part of lung Assessment & Plan: Continue zosyn and levofloxacin. Blood cultures in lab and sputum cultures ordered. Continue oxygen as needed. Code(s): J18.9 - PNEUMONIA, UNSPECIFIED ORGANISM (2) Sepsis Current Visit: Yes Status: Acute Assessment & Plan: Her blood pressure is much improved. Her IV fluids have been turned down to 30 mL/hr to keep her IV open. Resolving sepsis. (3) COPD with acute exacerbation Current Visit: Yes Status: Acute Assessment & Plan: Continue IV steroids and breathing treatments and antibiotics. She will need qualified for home oxygen before her discharge. Code(s): J44.1 - CHRONIC OBSTRUCTIVE PULMONARY DISEASE W (ACUTE) EXACERBATION (4) Renal insufficiency Current Visit: Yes Status: Resolved (5) History of seizure disorder Current Visit: Yes Status: Acute Assessment & Plan: Her Dilantin level was within the normal range. Code(s): Z86.69 - PERSONAL HISTORY OF DIS OF THE NERVOUS SYS AND SENSE ORGANS (6) Anxiety Current Visit: Yes Status: Acute Assessment & Plan: Start klonopin po as needed for anxiety while she is here in the hospital. Code(s): F41.9 - ANXIETY DISORDER, UNSPECIFIED (7) Hypoxia Current Visit: Yes Status: Acute Assessment & Plan: Increasing hypoxia. Recheck chest x-ray and D-dimer. Code(s): R09.02 - HYPOXEMIA
[2016-10-15] MEDS: NICODERM CQ 14 MG TOP SCH (08:55)
[2016-10-15] MEDS: Dilantin 100 MG PO SCH ×2 (08:55→22:25)
[2016-10-15] MEDS: DESYREL 50 MG PO SCH ×2 (08:55→22:25)
[2016-10-15] MEDS: Sodium Chloride 0.9% 1000 ML 1,000 ML IV SCH (08:55)
[2016-10-15] MEDS: ENOXAPARIN SODIUM SQ SCH (08:56)
[2016-10-15] MEDS ORDERED: PNEUMOVAX 23 IM ONE (10:00)
--- NOTE | 2016-10-15 10:27 | XRAY ---
Exam: Two-view chest from 10/15/2016. Comparison: AP upright portable chest film from 11/17/2015. Indication: Pneumonia, shortness of breath. Findings: Upright sitting AP and lateral chest films were obtained. The heart size appears normal. The pulmonary vessels are not congested. There is hyperinflation of the chest consistent with bullous emphysema within both upper lung [place]. However, there is suggestion of a developing 2.2 cm x 1.4 cm nodular density adjacent to the suture line within the central right upper lung field. A malignant pulmonary nodule must be strongly considered. Follow-up CT of the chest with IV contrast is recommended. Other stable chronic postsurgical changes are seen within the right upper and peripheral right midlung field. I note some vertically oriented discoid atelectasis at the medial aspect of both lung bases and a thin transverse line of linear atelectasis within the central left lower lung field. Although no central vascular congestion is seen, there are new small bilateral pleural effusions present. No pneumothorax is seen. The bones appear grossly intact. Impression: 1. There appears to be a 2.2 cm x 1.4 cm soft tissue nodule within the central aspect of the right upper lung field adjacent to a postsurgical suture line. A malignant lung nodule is not excluded. Further evaluation with a CT of the chest with IV contrast is recommended. 2. Bullous emphysema affecting primarily the upper lung [place]. Postsurgical changes are again seen within the right upper to midlung field. 3. New small bibasilar pleural effusions. I also note some new subsegmental atelectasis at the medial aspect of both lung bases as well as the left infrahilar projection extending transversely. 4. No other acute cardiopulmonary disease is seen.
[2016-10-15] MEDS: Klonopin 0.5 MG PO PRN (16:53)
[2016-10-15] MEDS: Levofloxacin 500MG/100ML D5W 100 ML IV SCH (22:21)
[2016-10-15] MEDS: REMERON 30 MG PO SCH (22:25)
[2016-10-16] MEDS: solu-MEDROL 125 MG IV SCH ×3 (05:31→21:20)
[2016-10-16] MEDS: Zosyn 3.375GM/100 Ml D5W 100 ML IV SCH ×3 (05:31→22:34)
[2016-10-16] MEDS: NORCO 5/325 MG PO PRN ×2 (05:32→15:13)
[2016-10-16] MEDS: Klonopin 0.5 MG PO PRN ×3 (05:37→21:20)
[2016-10-16 06:10] LABS: Mean Cell Volume 97.2 fl (78-100); Mean Corpuscular Hemoglobin 31.6 pg (26-32); Mean Platelet Volume 11.1 fl (6-9.5); Platelet Count 457 K/mm3 (150-450); Red Blood Count 3.54 M/mm3 (4.1-5.4); White Blood Count 11.7 K/mm3 (4.0-10.5)
[2016-10-16] MEDS: Spiriva 18 Mcg/Cap Inhaler IH SCH (06:30)
[2016-10-16] MEDS: DUONEB 0.5-3 MG/3 ml Neb IH SCH ×4 (06:30→18:45)
[2016-10-16 06:35] LABS: ANION GAP 11.5 MEQ/L (5-15); BLOOD UREA NITROGEN 9 mg/dL (9-20); CHLORIDE 109 mEq/L (98-107); Carbon Dioxide 27.2 mEq/L (21-32); Glucose 101 MG/DL (70-110); Potassium 4.5 mEq/L (3.5-5.1); SODIUM 143 mEq/L (136-145)
[2016-10-16 08:32] LABS: BAND 1 % (0.0-2.0); Platelet Estimate NORMAL (NORMAL); Total Cells Counted 100
[2016-10-16] MEDS: ENOXAPARIN SODIUM SQ SCH (08:35)
[2016-10-16] MEDS: Dilantin 100 MG PO SCH ×2 (08:36→21:19)
[2016-10-16] MEDS: DESYREL 50 MG PO SCH ×2 (08:36→21:20)
[2016-10-16] MEDS: NICODERM CQ 14 MG TOP SCH (08:36)
[2016-10-16] MEDS: Levofloxacin 500MG/100ML D5W 100 ML IV SCH (21:20)
[2016-10-16] MEDS: REMERON 30 MG PO SCH (21:20)
[2016-10-17] MEDS: NORCO 5/325 MG PO PRN ×3 (04:34→22:54)
[2016-10-17] MEDS: solu-MEDROL 125 MG IV SCH (05:45)
[2016-10-17] MEDS: Zosyn 3.375GM/100 Ml D5W 100 ML IV SCH ×3 (05:45→23:00)
[2016-10-17] MEDS: DUONEB 0.5-3 MG/3 ml Neb IH SCH ×4 (06:17→19:16)
[2016-10-17] MEDS: Spiriva 18 Mcg/Cap Inhaler IH SCH (06:18)
[2016-10-17 06:23] LABS: Mean Cell Volume 97.1 fl (78-100); Mean Corpuscular Hemoglobin 31.7 pg (26-32); Mean Platelet Volume 11.7 fl (6-9.5); Platelet Count 391 K/mm3 (150-450); Red Cell Distribution Width 13.7 % (11.5-14.0); White Blood Count 8.7 K/mm3 (4.0-10.5)
[2016-10-17 06:51] LABS: ANION GAP 6.8 MEQ/L (5-15); BLOOD UREA NITROGEN 12 mg/dL (9-20); CHLORIDE 108 mEq/L (98-107); Carbon Dioxide 30.2 mEq/L (21-32); Glucose 93 MG/DL (70-110); Potassium 4.3 mEq/L (3.5-5.1); SODIUM 141 mEq/L (136-145)
[2016-10-17] MEDS: NICODERM CQ 14 MG TOP SCH (08:29)
[2016-10-17] MEDS: Dilantin 100 MG PO SCH ×2 (08:29→22:54)
[2016-10-17] MEDS: ENOXAPARIN SODIUM SQ SCH (08:29)
[2016-10-17] MEDS: DESYREL 50 MG PO SCH ×2 (08:29→22:54)
[2016-10-17 08:45] LABS: Platelet Estimate NORMAL (NORMAL); Total Cells Counted 100
[2016-10-17] MEDS: DELTASONE 10 MG PO SCH (10:18)
[2016-10-17] MEDS: Klonopin 0.5 MG PO PRN ×2 (14:37→22:55)
[2016-10-17] MEDS: Levofloxacin 500MG/100ML D5W 100 ML IV SCH (22:54)
[2016-10-17] MEDS: REMERON 30 MG PO SCH (22:54)
[2016-10-18] MEDS: Zosyn 3.375GM/100 Ml D5W 100 ML IV SCH (06:21)
[2016-10-18] MEDS: DUONEB 0.5-3 MG/3 ml Neb IH SCH ×2 (06:45→10:21)
[2016-10-18] MEDS: Spiriva 18 Mcg/Cap Inhaler IH SCH (07:30)
[2016-10-18] MEDS: Klonopin 0.5 MG PO PRN (07:33)
[2016-10-18] MEDS: NORCO 5/325 MG PO PRN (07:33)
--- NOTE | 2016-10-18 08:49 | XRAY ---
Indication: Cough. Comparison: October 15, 2016. AP/lateral chest demonstrates new small focus of right base infiltrate/atelectasis/effusion. Otherwise stable extensive bullous emphysema, right mid/lower lung atelectasis/scarring, right upper lung postsurgical changes, and blunting of both costophrenic angles.
--- NOTE | 2016-10-18 10:11 | XRAY ---
Indication: Right lung nodule reported on chest x-ray of October 15, 2016. Multiple contiguous axial images obtained through the chest without contrast. Comparison: January 01, 2015. New mild/moderate bilateral dependent effusions left greater than right. Also new bilateral dependent atelectasis greatest in the right base. No focal infiltrate. Stable right upper lobectomy and extensive bullous emphysematous changes. Stable 1 cm subpleural noncalcified nodule in the posterior medial superior segment of the left lower lobe. Also stable small noncalcified nodular densities in the right middle lobe and left lower lobe. Heart is not enlarged. Aorta remains minimally calcified without aneurysmal dilatation. No pathologic mediastinal lymphadenopathy. Bony thorax intact. Limited noncontrasted upper abdomen is unremarkable. Impression: 1. New bilateral pleural effusions and dependent atelectasis without cardiomegaly. 2. No new pulmonary mass/nodule. 3. Stable extensive pulmonary emphysema, right upper lobectomy, and noncalcified nodular densities. CT DI 6.70
[2016-10-18] MEDS: DESYREL 50 MG PO SCH (10:12)
[2016-10-18] MEDS: NICODERM CQ 14 MG TOP SCH (10:12)
[2016-10-18] MEDS: Dilantin 100 MG PO SCH (10:12)
[2016-10-18] MEDS: DELTASONE 10 MG PO SCH (10:13)
[2016-10-18] MEDS: ENOXAPARIN SODIUM SQ SCH (10:13)
[2016-10-18 11:56] VITALS: BP 145/66; PULSE 95; O2SAT 91
--- NOTE | 2016-10-18 12:28 | PCM.DCORD ---
- Discharge Discharge Date: 10/18/16 Disposition: Home, Self-Care Condition: Fair Prescriptions: New Prednisone 20 mg [Deltasone 20 mg] 20 mg PO UD #6 tablet Continue Acetaminophen [Acetaminophen ER] 2 tab PO DAILY PRN PRN PRN Reason: Pain Tiotropium [place] [Spiriva] 18 mcg IH DAILY Trazodone HCl 50 mg [Desyrel 50 mg] 50 mg PO BID Mirtazapine 30 mg [Remeron 30 mg] 30 mg PO HS Albuterol Sulfate [Ventolin Hfa] 2 puff IH QID Phenytoin Sod Extended 100 mg* [Dilantin 100 MG] 100 mg PO DAILY Phenytoin Sod Extended 100 mg* [Dilantin 100 MG] 200 mg PO HS Discontinued Lisinopril 10 mg [Zestril 10 MG] 10 mg PO DAILY Diclofenac Sodium 75 mg PO BID Meloxicam 15 mg [Meloxicam 15 MG] 15 mg PO DAILY Instructions: Chronic Obstructive Pulmonary Disease, Pneumonia -- Adult Follow up with: JC FISHER [Primary Care Provider] - Forms: Patient Portal Information
--- NOTE | 2016-10-21 11:40 | DS ---
DISCHARGE DIAGNOSES: 1) LEFT LUNG PNEUMONIA. 2) SEPSIS. 3) CHRONIC OBSTRUCTIVE PULMONARY DISEASE WITH EXACERBATION. 4) RENAL INSUFFICIENCY. 5) HISTORY OF SEIZURE DISORDER. 6) ANXIETY. 7) HYPOXIA. DISCHARGE PHYSICAL EXAMINATION: VITALS: Temperature current 98.1F, temperature max 98.1F, heart rate 77 to 95, respiratory rate 16 to 18, blood pressure 128 to 145 over 66 to 72. Oxygen saturation 91 to 96% on 2 liters nasal cannula. GENERAL: The patient is a pleasant talkative lady sitting up in no acute distress. CVS: She has a regular rate and rhythm. No murmurs, gallops or rubs are appreciated. CHEST: Clear to auscultation bilaterally. No crackles or wheezes. ABDOMEN: Soft, nontender, nondistended with normal bowel sounds. EXTREMITIES: No clubbing, cyanosis or edema. SKIN: Warm, dry and intact. HOSPITAL COURSE: 1) PNEUMONIA. She was started on Zosyn and Levaquin when she first came into the hospital as she was also septic. Blood cultures were obtained. There was concern for infiltrate in the right infrahilar region when the emergency department doctor read her chest x-ray. A repeat chest x-ray on 10/15/2016 was concerning for possible nodule in the right upper lung field and continued bullous emphysema in the upper lung field and bibasilar effusions. CT scan of the chest was obtained without contrast on 10/18/2016 that was read as new bilateral pleural effusions with dependent atelectasis without cardiomegaly. No new pulmonary mass or nodule. Stable extensive pulmonary emphysema right upper lobectomy and noncalcified nodular density. She was continued on oxygen during her hospitalization as well as breathing treatments and IV steroids as she also has a history of chronic obstructive pulmonary disease. She is to follow up with her primary care physician as an outpatient. She was not discharged on any antibiotics as she had finished a full course of antibiotic before discharge. 2) SEPSIS: Her blood pressure was low on admission so antihypertensive were held. Her blood pressure did come up during her hospitalization. She was given fluid boluses in the emergency room and then placed on sepsis protocol. Blood cultures and urine cultures did not grow anything. Sputum culture was never able to be collected. 3) CHRONIC OBSTRUCTIVE PULMONARY DISEASE EXACERBATION: She was again on oxygen, IV antibiotics as well as IV steroids and she was changed to prednisone before her discharge to finish out a course. Please see the discharge orders. 4) RENAL INSUFFICIENCY: This resolved with IV fluids. The NSAID's were held during her hospitalization and she was given hydrocodone 5/325 mg every four hours as needed for pain while she was hospitalized. 5) HISTORY OF SEIZURE DISORDER: Her phenytoin level was checked on 10/14/2016 because the patient felt like she had some seizure activity and it was within normal range. Her home doses of her anti-seizure medications were continued. 6) ANXIETY: Her home antianxiety medications were continued. 7) HYPOXIA. The patient has a history of chronic obstructive pulmonary disease with chronic hypoxia and will continue her home oxygen which she states she already has in place. DISCHARGE MEDICATIONS: She was discharged on prednisone 20 mg 2 tablets p.o. daily for three days. She is to continue the acetaminophen, Spiriva, trazodone, Remeron, Albuterol and phenytoin. She is to discontinue lisinopril, diclofenac, and meloxicam and follow up with her primary care physician. DISPOSITION: The patient was discharged in fair condition to home to follow up her primary care physician, Dr. Dejon Hauser.
== END 2016-10-18 13:20 | disposition home or self-care (01) | DRG 193 ==
LOC: ED 21:44 → MED SURG 10-13 02:02
PROVIDERS: ADMIT Internal Medicine; ATTEND Internal Medicine
DX: J18.9 Pneumonia, unspecified organism (principal); A41.9 Sepsis, unspecified organism; J44.1 Chronic obstructive pulmonary disease with (acute) exacerbation; N28.9 Disorder of kidney and ureter, unspecified; M25.559 Pain in unspecified hip; F41.9 Anxiety disorder, unspecified; R09.02 Hypoxemia; Z72.0 Tobacco use; Z86.69 Personal history of other diseases of the nervous system and sense organs; Z89.612 Acquired absence of left leg above knee
CPT/HCPCS: 36000; 36415; 36600; 51702; 71010; 71020; 71250; 80048; 80053; 80185; 81000; 82375; 82803; 82805; 82962; 83036; 83605; 83735; 84134; 84484; 85025; 85027; 85379; 85610; 87040; 87070; 87086; 87430; 87631; 90732; 93005; 94640; 94760; 94761; 96360; 96361; 96365; 96367; 96374; 99285; J1650; J1956; J2543; J2930; J7506

== ENCOUNTER 2017-06-06 17:18 | Emergency (ER) | payer OTHER ==
[2017-06-06 17:26] VITALS: BP 160/98; PULSE 71; O2SAT 95
[2017-06-06] MEDS ORDERED: solu-MEDROL 125 MG IV ONE (17:39)
[2017-06-06] MEDS ORDERED: solu-MEDROL 125 MG ONE (17:44)
--- NOTE | 2017-06-06 17:45 | ERPHSYRPT ---
- History of Present Illness Time Seen by Provider: 06/06/17 17:40 Source: patient Exam Limitations: no limitations Patient Subjective Stated Complaint: PT REPORTS INTERMITTANT PRODUCTIVE COUGH WITH INCREASED SOB FOR LAST FEW WEEKS-INTERMITTANT FEVER-PT WAS PLACED ON CIPRO 500 MG BID A FEW DAYS AGO-PT STATES SHE HAS NOT GOTTEN ANY BETTER Triage Nursing Assessment: PT WARM ET DRY UPON ARRIVAL-PT SPEAKING NORMAL FOR HER-NO RETRACTIONS NOTED-PT IS ON HOME 02-O2 MAINTAINED DURING TRANSFER Physician History: Pt. with productive cough and ear infection who was treated with Cipro for past 1 week. Pt. concerned she was having a allergic reaction due to having sore throat. She called her MD's office and instructed to come to ED for eval. Pt. denies any pruritic rash, worse shortness of breath, dizziness or weakness. Pt. is a tobacco user presently. Denies any fever, chills, N/V/D, chest or abdominal pain. Timing/Duration: today Severity: mild Modifying Factors: Improves With: other (cough worsens) Associated Symptoms: shortness of breath, cough, No nausea, No vomiting, No syncope, No seizure Allergies/Adverse Reactions: aspirin Allergy (Verified 06/06/17 17:26) Home Medications: Albuterol Sulfate [Ventolin Hfa] 2 puff IH QID 10/13/16 [History] Tiotropium [place] [Spiriva] 18 mcg IH DAILY 10/13/16 [History] Trazodone HCl 50 mg [Desyrel 50 mg] 50 mg PO BID 10/13/16 [History] Carbamazepine 200 mg [Tegretol 200 MG] 200 mg PO BID 06/06/17 [History] Tizanidine HCl 4 mg [Zanaflex 4 MG] 2 mg PO UD 06/06/17 [History] Hx Tetanus, Diphtheria Vaccination/Date Given: No Hx Influenza Vaccination/Date Given: Yes Hx Pneumococcal Vaccination/Date Given: No Immunizations Up to Date: Yes - Review of Systems Constitutional: No Fever, No Chills Eyes: No Symptoms Ears, Nose, & Throat: Ear Pain, Throat Pain Respiratory: Cough, Dyspnea Cardiac: No Chest Pain, No Edema, No Syncope Abdominal/Gastrointestinal: No Symptoms, No Abdominal Pain, No Nausea, No Vomiting, No Diarrhea Genitourinary Symptoms: No Dysuria Musculoskeletal: No Back Pain, No Neck Pain Skin: No Rash Neurological: No Dizziness, No Focal Weakness, No Sensory Changes Psychological: No Symptoms Endocrine: No Symptoms All Other Systems: Reviewed and Negative - Past Medical History Pertinent Past Medical History: Yes Neurological History: Migraines, Seizures, Other ENT History: No Pertinent History Cardiac History: Aneurysm, Hypertension, Other Respiratory History: COPD, Emphysema Endocrine Medical History: No Pertinent History Musculoskeletal History: Arthritis, Other GI Medical History: No Pertinent History History: No Pertinent History Psycho-Social History: Anxiety, Depression Female Reproductive Disorders: Cervical Cancer Other Medical History: RT LOBECTOMY, DVT while - Past Surgical History Past Surgical History: Yes Neuro Surgical History: No Pertinent History Cardiac: Cardiac Catheterization Respiratory: Lobectomy Gastrointestinal: Hernia Repair Musculoskeletal: Amputation, Other Female Surgical History: Hysterectomy Other Surgical History: 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 carpel tunnel - Social History Smoking Status: Current every day smoker How long have you smoked: YRS Exposure to second hand smoke: No Drug Use: none Patient Lives Alone: No Significant Family History: no pertinent family hx - Female History Hx Now: No - Nursing Vital Signs Nursing Vital Signs: Initial Vital Signs Temperature 97.9 F 06/06/17 17:20 Pulse Rate 71 06/06/17 17:20 Respiratory Rate 22 06/06/17 17:20 Blood Pressure 160/98 06/06/17 17:20 O2 Sat by Pulse Oximetry 91 L 06/06/17 17:20 Pain Scale Pain Intensity 0 - Physical Exam General Appearance: no apparent distress, alert Eye Exam: PERRL/EOMI, eyes nml inspection Ears, Nose, Throat Exam: normal ENT inspection, TMs normal, pharynx normal, moist mucous membranes Neck Exam: normal inspection, non-tender, supple, full range of motion Respiratory Exam: lungs clear, diminished breath sounds, wheezing (intermittent) , No respiratory distress Cardiovascular Exam: regular rate/rhythm, normal heart sounds, normal peripheral pulses Gastrointestinal/Abdomen Exam: soft, normal bowel sounds, No tenderness, No mass Back Exam: normal inspection, normal range of motion, No CVA tenderness, No vertebral tenderness Extremity Exam: normal inspection, normal range of motion, pelvis stable Neurologic Exam: alert, oriented x 3, cooperative, normal mood/affect, nml cerebellar function, nml station & gait, sensation nml, No motor deficits Skin Exam: normal color, warm, dry, No rash Lymphatic Exam: No adenopathy SpO2: 95 Oxygen Delivery: Nasal Cannula - Course Nursing assessment & vital signs reviewed: Yes Ordered Tests: Medication Summary Generic Name Dose Route Start Last Admin Trade Name Vincent PRN Reason Stop Dose Admin Methylprednisolone Sodium Succinate 125 mg 06/06/17 17:39 Solu-Medrol 125 Mg IV 06/06/17 17:40 STAT ONE - Progress Progress: improved Progress Note: 06/06/17 17:44 Pt. given Solumedrol Counseled pt/family regarding: diagnosis - Departure Time of Disposition: 17:45 Departure Disposition: Home Clinical Impression: Bronchitis Condition: Stable Critical Care Time: No Referrals: JC FISHER [Primary Care Provider] - Instructions: Cough -- Adult, Bronchitis Additional Instructions: RX: Prednisone Return for worse cough, short of breath, rash or any problems
== END 2017-06-06 18:39 | disposition home or self-care (01) ==
LOC: ED 17:18
DX: J40 Bronchitis, not specified as acute or chronic (principal)
CPT/HCPCS: 96374; 99284; J2930

== ENCOUNTER 2017-06-30 13:55 | Inpatient (IN) | payer OTHER ==
[2017-06-30] MEDS ORDERED: solu-MEDROL 125 MG IV ONE (14:23)
[2017-06-30] MEDS ORDERED: Levofloxacin 500MG/100ML D5W 500 MG/100 ML BAG IV STA (14:23)
[2017-06-30] MEDS ORDERED: PROVENTIL 2.5 MG/3 ML NEB IH ONE (14:23)
[2017-06-30] MEDS ORDERED: Sodium Chloride 0.9% 1000 ML 1,000 ML IV SCH ×2 (14:30→16:45)
[2017-06-30] MEDS ORDERED: Sodium Chloride 3 ML UD NEBULES IH ONE (14:30)
[2017-06-30] MEDS ORDERED: PROVENTIL Solution 2.5 MG/0.5 ML IH ONE (14:30)
--- NOTE | 2017-06-30 14:39 | ERPHSYRPT ---
- History of Present Illness Time Seen by Provider: 06/30/17 14:20 Source: patient Exam Limitations: clinical condition Patient Subjective Stated Complaint: pt here for increase sob and sat in the 70 % at drs office, cough nonproductive, pt on o2 at home at 3l tn Triage Nursing Assessment: pt arrived per wc. alert, resp easy . chest with diminished bs, no edema, pt is r lower leg amputee Physician History: PATIENT WITH HISTORY OF LONGSTANDING COPD COMPLAINS OF A NONPRODUCTIVE COUGH, PROGRESSIVE DYSPNEA FOR 4-5 DAYS. PLACED ON ANTIBIOTIC LEVAQUIN 2 DAYS AGO. DENIES FEVER, CHILLS ,CHEST PAIN. Timing/Duration: day(s) Activities at Onset: activity Severity of Dyspnea-Max: severe Severity of Dyspnea-Current: severe Possible Cause: occasional episodes Modifying Factors: Improves With: activity, coughing Associated Symptoms: cough, painful breathing, tightness Allergies/Adverse Reactions: aspirin Allergy (Verified 06/30/17 14:11) Home Medications: Albuterol Sulfate [Ventolin Hfa] 2 puff IH QID 10/13/16 [History] Tiotropium [place] [Spiriva] 18 mcg IH DAILY 10/13/16 [History] Trazodone HCl 50 mg [Desyrel 50 mg] 50 mg PO BID 10/13/16 [History] Carbamazepine 200 mg [Tegretol 200 MG] 200 mg PO BID 06/06/17 [History] Tizanidine HCl 4 mg [Zanaflex 4 MG] 2 mg PO UD 06/06/17 [History] Alendronate Sodium 70 mg PO 06/30/17 [History] Cholecalciferol (Vitamin D3) [Vitamin D] 50,000 unit PO WEEKLY 06/30/17 [History ] Levofloxacin [Levaquin] 500 mg DAILY 06/30/17 [History] Lisinopril 10 mg [Zestril 10 MG] 10 mg PO DAILY 06/30/17 [History] Mirtazapine 30 mg PO HS 06/30/17 [History] Hx Tetanus, Diphtheria Vaccination/Date Given: No Hx Influenza Vaccination/Date Given: Yes Hx Pneumococcal Vaccination/Date Given: No - Review of Systems Constitutional: No Fever, No Chills Eyes: No Symptoms Ears, Nose, & Throat: No Symptoms Respiratory: Cough, Dyspnea on Exertion (LOTT), No Dyspnea Cardiac: No Symptoms, No Chest Pain, No Edema, No Syncope Abdominal/Gastrointestinal: No Symptoms, No Abdominal Pain, No Nausea, No Vomiting, No Diarrhea Genitourinary Symptoms: No Symptoms, No Dysuria Musculoskeletal: No Symptoms, No Back Pain, No Neck Pain Skin: No Rash Neurological: No Dizziness, No Focal Weakness, No Sensory Changes Psychological: No Symptoms Endocrine: No Symptoms All Other Systems: Reviewed and Negative - Past Medical History Pertinent Past Medical History: Yes Neurological History: Migraines, Seizures, Other ENT History: No Pertinent History Cardiac History: Aneurysm, Hypertension, Other Respiratory History: COPD, Emphysema Endocrine Medical History: No Pertinent History Musculoskeletal History: Arthritis, Osteoporosis, Other GI Medical History: No Pertinent History History: No Pertinent History Psycho-Social History: Anxiety, Depression Female Reproductive Disorders: Cervical Cancer Other Medical History: RT LOBECTOMY, DVT while - Past Surgical History Past Surgical History: Yes Neuro Surgical History: No Pertinent History Cardiac: Cardiac Catheterization Respiratory: Lobectomy Gastrointestinal: Hernia Repair Musculoskeletal: Amputation, Other Female Surgical History: Hysterectomy Other Surgical History: 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 carpel tunnel - Social History Smoking Status: Current every day smoker How long have you smoked: 35 Exposure to second hand smoke: Yes Drug Use: none Patient Lives Alone: No Significant Family History: no pertinent family hx - Female History Hx Last Menstrual Period: post Hx Now: No - Nursing Vital Signs Nursing Vital Signs: Initial Vital Signs Temperature 98.4 F 06/30/17 12:29 Pulse Rate 90 06/30/17 12:29 Respiratory Rate 16 06/30/17 12:29 Blood Pressure 134/76 06/30/17 12:29 O2 Sat by Pulse Oximetry 92 L 06/30/17 12:29 Pain Scale Pain Intensity 9 - Physical Exam General Appearance: moderate distress, alert Eye Exam: PERRL/EOMI Ears, Nose, Throat Exam: hearing grossly normal Neck Exam: normal inspection, supple Respiratory Exam: diminished breath sounds, other (NO WHEEZES OR RHONCHI) Cardiovascular/Chest Exam: normal heart sounds, regular rate/rhythm Abdominal/Gastrointestinal Exam: soft, normal bowel sounds, No tenderness, No distention, No mass Extremity Exam: non-tender, normal range of motion, normal inspection, no calf tenderness, no pedal edema Peripheral Pulses Exam: carotid (R): 2+, carotid (L): 2+, femoral (R): 2+, femoral (L): 2+, dorsalis-pedis (R): 2+, dorsalis-pedis (L): 2+ Neurologic Exam: alert, oriented x 3, cooperative, global analytics head II-XII nml as tested, sensation nml, No motor deficits Skin Exam: normal color, warm, No dry SpO2 Interpretation: hypoxic SpO2: 91 Oxygen Delivery: Nasal Cannula Ordered Tests: Active Orders 24 hr Category Date Time Status Up With Assistance ROUTINE Activity 06/30/17 16:31 Active Admission/Status Order ROUTINE Care 06/30/17 16:31 Ordered Code Status Order ROUTINE Care 06/30/17 16:31 Ordered EKG-ER Only STAT Care 06/30/17 14:23 Active IV Care Q6H Care 06/30/17 16:31 Ordered IV Insertion STAT Care 06/30/17 14:23 Active Oxygen-ED Only NASAL CANNULA 2 lpm Care 06/30/17 14:23 Active Adebayo Campos, Apply ROUTINE Care 06/30/17 16:31 Ordered Telemetry ROUTINE Care 06/30/17 16:31 Ordered Vital Signs Q4H Care 06/30/17 16:31 Ordered Weight,Daily 0600 Care 06/30/17 16:31 Ordered Regular Diet Diet 06/30/17 Dinner Active CHEST 1 VIEW (PORTABLE) Stat Exams 06/30/17 14:28 Completed ARTERIAL BLOOD GASES Stat Lab 06/30/17 14:41 Completed BLOOD CULTURE Stat Lab 06/30/17 14:15 Received CBC W DIFF Stat Lab 06/30/17 14:15 Completed CMP Stat Lab 06/30/17 14:15 Completed D-DIMER QUANTITATION Stat Lab 06/30/17 14:15 Completed Lactic Acid Stat Lab 06/30/17 14:41 Completed MAGNESIUM Stat Lab 06/30/17 14:15 Completed PROTIME WITH INR Stat Lab 06/30/17 14:15 Completed TROPONIN Q3H Lab 06/30/17 14:15 Completed TROPONIN Q3H Lab 06/30/17 17:30 Ordered TROPONIN Q3H Lab 06/30/17 20:30 Ordered TROPONIN Q3H Lab 06/30/17 23:30 Ordered TROPONIN Q3H Lab 07/01/17 02:30 Ordered UA W/RFX UR CULTURE Stat Lab 06/30/17 14:15 Completed RT Screen per Nursing Assess ONCE RT 06/30/17 12:57 Active Respiratory Nebulizer Q4H RT 06/30/17 16:31 Ordered Respiratory Nebulizer STAT RT 06/30/17 14:27 Completed Smoking Cessation Education ONCE RT 06/30/17 12:57 Active Transfer Order Routine Transfer 06/30/17 Ordered Medication Summary Generic Name Dose Route Start Last Admin Trade Name Freq PRN Reason Stop Dose Admin Sodium Chloride 1,000 mls @ 200 mls/hr 06/30/17 14:30 06/30/17 14:54 Sodium Chloride 0.9% 1000 Ml IV 07/30/17 14:29 200 mls/hr .Q5H SHRUTHI Administration Influenza Virus Vaccine Quadrival 60 mcg 07/01/17 10:00 Flucelvax Quad [id number] Syr IM 07/01/17 10:01 .ONCE ONE Discontinued Medications Generic Name Dose Route Start Last Admin Trade Name Freq PRN Reason Stop Dose Admin Albuterol Sulfate 10 mg 06/30/17 14:23 06/30/17 14:30 Proventil 2.5 Mg/3 Ml Neb IH 06/30/17 14:24 10 mg STAT ONE Administration Albuterol Sulfate Confirm 06/30/17 14:30 Proventil Solution 2.5 Mg/0.5 Ml Administered 06/30/17 14:31 Dose 10 mg IH .STK-MED ONE Levofloxacin/Dextrose 500 mg in 100 mls @ 100 mls/hr 06/30/17 14:23 06/30/17 14:54 Levofloxacin 500mg/100ml D5w IV 06/30/17 15:22 100 mls/hr STAT STA Administration Levofloxacin/Dextrose Confirm 06/30/17 14:51 Levofloxacin 500mg/100ml D5w Administered 06/30/17 14:52 Dose 500 mg in 100 mls @ ud IV .STK-MED ONE Methylprednisolone Sodium Succinate 125 mg 06/30/17 14:23 06/30/17 15:10 Solu-Medrol 125 Mg IV 06/30/17 14:24 125 mg STAT ONE Administration Methylprednisolone Sodium Succinate Confirm 06/30/17 15:06 Solu-Medrol 125 Mg Administered 06/30/17 15:07 Dose 125 mg .ROUTE .STK-MED ONE Sodium Chloride Confirm 06/30/17 14:30 Sodium Chloride 3 Ml Ud Nebules Administered 06/30/17 14:31 Dose 9 ml IH .STK-MED ONE Lab/Rad Data: Laboratory Result Diagrams 06/30/17 14:15 06/30/17 14:15 Laboratory Results 06/30/17 06/30/17 06/30/17 Range/Units 14:41 14:15 14:15 WBC (4.0-10.5) K/mm3 RBC (4.1-5.4) M/mm3 Hgb (12.0-16.0) gm/dl Hct (35-47) % MCV (78-100) fl MCH (26-32) pg MCHC (32-36) g/dl RDW (11.5-14.0) % Plt Count (150-450) K/mm3 MPV (6-9.5) fl Gran % (36.0-66.0) % Lymphocytes % (24.0-44.0) % Monocytes % (0.0-12.0) % Eosinophils % (0.00-5.0) % Basophils % (0.0-0.4) % Basophils # (0-0.4) INR (0.8-3.0) D-Dimer (0-500) ng/mL pO2 [employer] Carboxyhemoglobin [employer] Sodium (136-145) mEq/L Potassium (3.5-5.1) mEq/L Chloride (98-107) mEq/L Carbon Dioxide (21-32) mEq/L Anion Gap (5-15) MEQ/L BUN (9-20) mg/dL Creatinine (0.55-1.30) mg/dl Estimated GFR ML/MIN Glucose (70-110) MG/DL Lactic Acid 1.3 (0.4-2.0) Calcium (8.5-10.1) mg/dL Magnesium (1.8-2.4) mg/dL Total Bilirubin (0.2-1.0) mg/dL AST (15-37) U/L ALT (12-78) U/L Alkaline Phosphatase (46-116) U/L Troponin I < 0.017 (0.000-0.056) ng/ml Serum Total Protein (6.4-8.2) gm/dL Albumin (3.4-5.0) g/dL Ur Collection Type CATH Urine Color YELLOW (YELLOW) Urine Appearance CLEAR (CLEAR) Urine pH 5.0 (5-6) Ur Specific [place] 1.005 (1.005-1.025) Urine Protein NEGATIVE (Negative) Urine Ketones NEGATIVE (NEGATIVE) Urine Blood NEGATIVE (0-5) Karri/ul Urine Nitrite NEGATIVE (NEGATIVE) Urine Bilirubin NEGATIVE (NEGATIVE) Urine Urobilinogen NORMAL (0-1) mg/dL Ur Leukocyte Esterase NEGATIVE (NEGATIVE) Urine Culture Reflexed NO (NO) Urine Glucose NEGATIVE (NEGATIVE) mg/dL Specimen Received 06/30/17 1430 06/30/17 06/30/17 06/30/17 Range/Units 14:15 14:15 14:15 WBC 7.5 (4.0-10.5) K/mm3 RBC 4.35 (4.1-5.4) M/mm3 Hgb 13.8 (12.0-16.0) gm/dl Hct 40.9 (35-47) % MCV 94.0 (78-100) fl MCH 31.7 (26-32) pg MCHC 33.7 (32-36) g/dl RDW 12.4 (11.5-14.0) % Plt Count 371 (150-450) K/mm3 MPV 9.8 H (6-9.5) fl Gran % 70.8 H (36.0-66.0) % Lymphocytes % 15.0 L (24.0-44.0) % Monocytes % 12.8 H (0.0-12.0) % Eosinophils % 1.1 (0.00-5.0) % Basophils % 0.3 (0.0-0.4) % Basophils # 0.02 (0-0.4) INR 1.25 (0.8-3.0) D-Dimer 319 (0-500) ng/mL pO2 Carboxyhemoglobin Sodium 135 L (136-145) mEq/L Potassium 4.0 (3.5-5.1) mEq/L Chloride 102 (98-107) mEq/L Carbon Dioxide 23.8 (21-32) mEq/L Anion Gap 13.5 (5-15) MEQ/L BUN 7 L (9-20) mg/dL Creatinine 0.62 (0.55-1.30) mg/dl Estimated GFR > 60 ML/MIN Glucose 88 (70-110) MG/DL Lactic Acid (0.4-2.0) Calcium 8.6 (8.5-10.1) mg/dL Magnesium 1.7 L (1.8-2.4) mg/dL Total Bilirubin 0.30 (0.2-1.0) mg/dL AST 14 L (15-37) U/L ALT 10 L (12-78) U/L Alkaline Phosphatase 109 (46-116) U/L Troponin I (0.000-0.056) ng/ml Serum Total Protein 6.3 L (6.4-8.2) gm/dL Albumin 3.1 L (3.4-5.0) g/dL Ur Collection Type Urine Color (YELLOW) Urine Appearance (CLEAR) Urine pH (5-6) Ur Specific [place] (1.005-1.025) Urine Protein (Negative) Urine Ketones (NEGATIVE) Urine Blood (0-5) Karri/ul Urine Nitrite (NEGATIVE) Urine Bilirubin (NEGATIVE) Urine Urobilinogen (0-1) mg/dL Ur Leukocyte Esterase (NEGATIVE) Urine Culture Reflexed (NO) Urine Glucose (NEGATIVE) mg/dL Specimen Received - Progress Progress Note: 06/30/17 14:39 ADMINISTERED A CONTINUOUS NEBULIZED ALBUTEROL 10MG OVER 1 HOUR, SOLUMEDROL 125MG IV, LEVAQUIN 500MG IVPB, PATIENT REFUSED ARTERIAL BLOOD GAS. Blood Culture(s) Obtained: Yes Antibiotics given: Yes Discussed with Dr.: Reid (DISCUSSED WITH DR REID AT 1600 FOR ADMISSION) - Departure Time of Disposition: 16:40 Departure Disposition: In-patient Admission Clinical Impression: EXACERBATION COPD Condition: Stable Critical Care Time: No Referrals: JC FISHER [Primary Care Provider] -
[2017-06-30 14:47] LABS: Lactic Acid 1.3 (0.4-2.0)
[2017-06-30 14:50] LABS: BASOPHIL % 0.3 % (0.0-0.4); Eosinophil % 1.1 % (0.00-5.0); Granulocytes % 70.8 % (36.0-66.0); Mean Corpuscular Hemoglobin 31.7 pg (26-32); Mean Platelet Volume 9.8 fl (6-9.5); Monocytes % 12.8 % (0.0-12.0); Platelet Count 371 K/mm3 (150-450); Red Blood Count 4.35 M/mm3 (4.1-5.4); Red Cell Distribution Width 12.4 % (11.5-14.0); White Blood Count 7.5 K/mm3 (4.0-10.5)
[2017-06-30] MEDS ORDERED: Levofloxacin 500MG/100ML D5W 500 MG/100 ML BAG IV ONE (14:51)
--- NOTE | 2017-06-30 15:00 | XRAY ---
Indication: Right-sided chest pain and short of breath. Comparison: June 28, 2017. Portable chest unchanged again hyperinflated with extensive bolus emphysema, right mid lung scarring, right upper lung postsurgical changes, and left costophrenic angle nodule. No infiltrate/consolidation. Heart is not enlarged. Bony thorax intact. Impression: Stable nonacute chest with chronic features.
[2017-06-30 15:02] LABS: Bilirubin NEGATIVE (NEGATIVE); Blood NEGATIVE Ery/ul (0-5); Collection Type CATH; Glucose NEGATIVE (NEGATIVE); Leukocyte Esterase NEGATIVE (NEGATIVE)
[2017-06-30] MEDS ORDERED: solu-MEDROL 125 MG ONE (15:06)
[2017-06-30 15:14] LABS: INR 1.25 (0.8-3.0); PROTIME 13.9 SECONDS (9.95-12.35)
[2017-06-30 15:18] LABS: COMPLETE URINE MICROSCOPIC? NO
[2017-06-30 15:19] LABS: ADD URINE CULTURE? NO (NO)
[2017-06-30 15:34] LABS: ALBUMIN 3.1 g/dL (3.4-5.0); ALKALINE PHOSPHATASE 109 U/L (46-116); ANION GAP 13.5 MEQ/L (5-15); BLOOD UREA NITROGEN 7 mg/dL (9-20); CHLORIDE 102 mEq/L (98-107); Carbon Dioxide 23.8 mEq/L (21-32); Glucose 88 MG/DL (70-110); MAGNESIUM 1.7 mg/dL (1.8-2.4); SGOT/AST 14 U/L (15-37); SGPT/ALT 10 U/L (12-78); SODIUM 135 mEq/L (136-145); Total Protein 6.3 gm/dL (6.4-8.2)
[2017-06-30] MEDS ORDERED: Xopenex 1.25 MG/0.5 ML UD NEBULE IH PRN (16:34)
[2017-06-30] MEDS ORDERED: Sodium Chloride 3 ML UD NEBULES IH PRN (17:20)
[2017-06-30] MEDS: DUONEB 0.5-3 MG/3 ml Neb IH SCH ×2 (19:06→23:03)
[2017-06-30] MEDS: Advair Hfa 230/21 Mcg COMMON CANISTER IH SCH (19:06)
[2017-06-30] MEDS: Tegretol 200 MG PO SCH (21:22)
[2017-06-30] MEDS: REMERON 30 MG PO SCH (21:22)
[2017-06-30] MEDS: DESYREL 50 MG PO SCH (21:22)
[2017-06-30] MEDS ORDERED: Zanaflex 4 MG PO ONE (22:45)
[2017-06-30] MEDS: solu-MEDROL 125 MG IV SCH (23:50)
[2017-07-01] MEDS: DUONEB 0.5-3 MG/3 ml Neb IH SCH ×6 (02:41→22:56)
[2017-07-01] MEDS: solu-MEDROL 125 MG IV SCH ×3 (05:56→21:51)
[2017-07-01] MEDS ORDERED: VITAMIN D2 PO SCH (07:00)
[2017-07-01] MEDS ORDERED: NON-FORMULARY ITEM (Cholecalciferol (Vitamin D3) [Vitamin D3] 50,000 UNIT) PO SCH (07:00)
[2017-07-01] MEDS ORDERED: Fosamax 70 MG PO SCH (07:00)
[2017-07-01] MEDS: Advair Hfa 230/21 Mcg COMMON CANISTER IH SCH ×2 (07:00→19:00)
[2017-07-01] MEDS ORDERED: Zanaflex 4 MG PO SCH (07:15)
[2017-07-01] MEDS: Spiriva 18 Mcg/Cap Inhaler IH SCH (07:20)
[2017-07-01] MEDS ORDERED: MEDICATION INTERVENTION MC PRN (07:25)
[2017-07-01] MEDS ORDERED: FLUCELVAX QUAD 2017-2018 SYR IM ONE (10:00)
[2017-07-01] MEDS ORDERED: Levofloxacin 500MG/100ML D5W 500 MG/100 ML BAG IV SCH (10:00)
[2017-07-01] MEDS: Tylenol #3 Tablet PO PRN ×3 (10:41→21:53)
[2017-07-01] MEDS: Zestril 10 MG PO SCH (10:41)
[2017-07-01] MEDS: Levofloxacin 500 MG Tablet PO SCH (10:42)
[2017-07-01] MEDS: DESYREL 50 MG PO SCH ×2 (10:42→21:53)
[2017-07-01] MEDS: Zanaflex 4 MG PO SCH ×4 (10:42→21:52)
[2017-07-01] MEDS: Tegretol 200 MG PO SCH ×2 (10:45→21:54)
[2017-07-01] MEDS: REMERON 30 MG PO SCH (21:53)
[2017-07-02] MEDS: DUONEB 0.5-3 MG/3 ml Neb IH SCH ×3 (03:16→07:25)
[2017-07-02 06:18] LABS: Mean Cell Volume 96.7 fl (78-100); Mean Corpuscular Hemoglobin 31.1 pg (26-32); Mean Platelet Volume 9.5 fl (6-9.5); Platelet Count 378 K/mm3 (150-450); Red Blood Count 3.95 M/mm3 (4.1-5.4); Red Cell Distribution Width 12.8 % (11.5-14.0); White Blood Count 10.6 K/mm3 (4.0-10.5)
[2017-07-02] MEDS: solu-MEDROL 125 MG IV SCH (06:30)
[2017-07-02] MEDS: Tylenol #3 Tablet PO PRN (06:36)
[2017-07-02 06:56] LABS: ANION GAP 9.6 MEQ/L (5-15); BLOOD UREA NITROGEN 7 mg/dL (9-20); CHLORIDE 109 mEq/L (98-107); Carbon Dioxide 26.5 mEq/L (21-32); Glucose 123 MG/DL (70-110); Potassium 5.1 mEq/L (3.5-5.1); SODIUM 140 mEq/L (136-145)
[2017-07-02 07:23] VITALS: BP 143/71; PULSE 90; O2SAT 97
[2017-07-02] MEDS: Advair Hfa 230/21 Mcg COMMON CANISTER IH SCH (07:26)
[2017-07-02] MEDS: Spiriva 18 Mcg/Cap Inhaler IH SCH (07:27)
--- NOTE | 2017-07-02 08:39 | PCM.DCORD ---
- Discharge Discharge Date: 07/02/17 Prescriptions: New Prednisone 10 mg [Deltasone 10 mg] 10 mg PO DAILY 7 Days #18 tablet Albuterol/Ipratropium 3ml Neb* [DUONEB 0.5-3 MG/3 ml Neb] 3 ml IH Q4HRT # 120 ampul.neb Continue Tiotropium [place] [Spiriva] 18 mcg IH DAILY Trazodone HCl 50 mg [Desyrel 50 mg] 50 mg PO BID Albuterol Sulfate [Ventolin Hfa] 2 puff IH QID Carbamazepine 200 mg [Tegretol 200 MG] 200 mg PO BID Tizanidine HCl 4 mg [Zanaflex 4 MG] 2 mg PO UD Mirtazapine 30 mg PO HS Lisinopril 10 mg [Zestril 10 MG] 10 mg PO DAILY Cholecalciferol (Vitamin D3) [Vitamin D3] 50,000 unit PO WEEKLY Alendronate Sodium 70 mg PO WEEKLY Levofloxacin [Levaquin] 500 mg DAILY Fluticasone/Salmeterol [Advair 250-50 Diskus] 1 puff IH DAILY Follow up with: CJ FISHER [Primary Care Provider] - REBA REID [ACTIVE STAFF] - 1 Week
[2017-07-02] MEDS: DESYREL 50 MG PO SCH (09:29)
[2017-07-02] MEDS: Levofloxacin 500 MG Tablet PO SCH (09:29)
[2017-07-02] MEDS: Zanaflex 4 MG PO SCH (09:29)
[2017-07-02] MEDS: Zestril 10 MG PO SCH (09:29)
[2017-07-02] MEDS: Tegretol 200 MG PO SCH (09:31)
--- NOTE | 2017-07-04 12:47 | SSS ---
DISCHARGE DIAGNOSIS: ACUTE EXACERBATION OF CHRONIC OBSTRUCTIVE PULMONARY DISEASE. HISTORY: The patient is a 51 year-old white female who presented to the emergency room with the above complaints of shortness of breath. The patient was noted to have 70% saturation at the doctor's office. She was seeing Dr. Garcia who sent her to the hospital for direct admission due to her hypoxia. The patient was admitted to the hospital for IV antibiotics, nebulizer treatment and IV steroid. HOME MEDICATIONS: Albuterol, Spiriva, Desyrel 50 mg a day, Tegretol 200 mg b.i.d., Zanaflex 4 mg two times a day, Fosamax 70 mg a day, vitamin D 50,000 units weekly, Levaquin 500 mg daily, lisinopril 10 mg a day, mirtazapine 30 mg at night. ALLERGIES: ASPIRIN. PHYSICAL EXAMINATION: Revealed a thin, somewhat disheveled appearing white female appearing somewhat older than her stated age of 51. HEENT: Currently wearing oxygen per nasal cannula. Otherwise normocephalic, atraumatic. Pupils equal round reactive to light. Extraocular movements intact. Oropharynx is pink and moist. NECK: Supple without lymphadenopathy, thyromegaly or JVD. CHEST: Currently clear to auscultation with reasonably good air movement. HEART: Regular rate and rhythm without murmurs, rubs or gallops. ABDOMEN: Soft, scaphoid. No palpable masses are felt. EXTREMITIES: Without clubbing, cyanosis or edema. NEUROLOGIC: The patient is alert and oriented x3. No focal deficits noted. LAB DATA AND TESTS: Metabolic panel showed glucose 88, BUN 7, creatinine 0.62. Liver enzymes slightly low. Troponin less than 0.017. D-dimer 219. International normalized ratio 1.25. UA normal. CBC normal. Lactic acid 1.3. Troponins less than 0.017 on several occasions. HOSPITAL COURSE: The patient was admitted to medicine medel and given IV steroids, antibiotics, IV fluids and oxygen. When I saw her the next morning on 07/01/2017, she appeared to be back to her normal state of health. She was reduced on her IV steroids overnight and by the morning of 07/02/2017 she was felt to be ready for discharge home being back to her usual state of health. She was discharged home on prednisone 30 mg a day for three days, 20 for three days, 10 for three days and then given follow up appointment to see myself or her primary care physician, Dr. Dejon Hauser, in the following week. She is also reminded to see her pulmonary doctor, Dr. Lenny Garcia for follow up as well.
== END 2017-07-02 10:00 | disposition home or self-care (01) | DRG 192 ==
LOC: ED 13:55 → EDSTATUS 13:55 → MED SURG 16:45 → UNDOADMIN 16:45
PROVIDERS: ADMIT Family Medicine; ATTEND Family Medicine
DX: J44.1 Chronic obstructive pulmonary disease with (acute) exacerbation (principal); Z79.899 Other long term (current) drug therapy
CPT/HCPCS: 36000; 36415; 36600; 71010; 71020; 80048; 80053; 81002; 82375; 82803; 83605; 83735; 84484; 85025; 85027; 85379; 85610; 87040; 93005; 94640; 94760; 96360; 96361; 96365; 96374; 99285; G0008; J1956; J2930; 90682; A9270-GY

== ENCOUNTER 2017-08-17 19:56 | Inpatient (IN) | payer OTHER ==
[2017-08-17] MEDS ORDERED: Zithromax 500 MG/ 250 ML NaCl Premix 500 MG/250 ML IVPB IV STA (20:07)
[2017-08-17] MEDS ORDERED: PROVENTIL 2.5 MG/3 ML NEB IH ONE ×2 (20:07→20:35)
[2017-08-17] MEDS ORDERED: ROCEPHIN 1 Gm-D5w 50 ml Bag** 1 G/50 ML IVPB IV STA (20:07)
[2017-08-17] MEDS ORDERED: Zithromax 500 MG/ 250 ML NaCl Premix 500 MG/250 ML IVPB IV ONE (20:12)
[2017-08-17] MEDS ORDERED: ROCEPHIN 1 Gm-D5w 50 ml Bag** 1 G/50 ML IVPB IV ONE (20:12)
[2017-08-17] MEDS ORDERED: Sodium Chloride 0.9% 1000 ML 1,000 ML ONE (20:12)
[2017-08-17] MEDS ORDERED: Sodium Chloride 0.9% 1000 ML 1,000 ML IV SCH (20:15)
--- NOTE | 2017-08-17 20:24 | ERPHSYRPT ---
- History of Present Illness Time Seen by Provider: 08/17/17 20:06 Source: patient, EMS (gave duoneb, oxygen, alb neb, solu medrol 125mg IV [employer]) Physician History: CC: short of breath Hx: 52 y/o patient of Dr Hauser/Jose with severe COPD. S/P right lung resection. She has cough, sputum, fevers and now severe dyspnea. Worsening over a few days. No chest pain. EMS noted saturations 80% on arrival. Timing/Duration: day(s) (few) Severity of Dyspnea-Max: severe Severity of Dyspnea-Current: severe Allergies/Adverse Reactions: aspirin Allergy (Verified 08/17/17 20:34) Home Medications: Albuterol Sulfate [Ventolin Hfa] 2 puff IH QID 10/13/16 [History] Tiotropium Kite [Spiriva] 18 mcg IH DAILY 10/13/16 [History] Trazodone HCl 50 mg [Desyrel 50 mg] 50 mg PO BID 10/13/16 [History] Carbamazepine 200 mg [Tegretol 200 MG] 200 mg PO BID 06/06/17 [History] Tizanidine HCl 4 mg [Zanaflex 4 MG] 2 mg PO UD 06/06/17 [History] Alendronate Sodium 70 mg PO WEEKLY 06/30/17 [History] Cholecalciferol (Vitamin D3) [Vitamin D3] 50,000 unit PO WEEKLY 06/30/17 [ History] Fluticasone/Salmeterol [Advair 250-50 Diskus] 1 puff IH DAILY 06/30/17 [History] Lisinopril 10 mg [Zestril 10 MG] 10 mg PO DAILY 06/30/17 [History] Mirtazapine 30 mg PO HS 06/30/17 [History] Hx Tetanus, Diphtheria Vaccination/Date Given: No Hx Influenza Vaccination/Date Given: Yes Hx Pneumococcal Vaccination/Date Given: No - Review of Systems Constitutional: Fever, Chills, Fatigue, Malaise, Weakness Eyes: No Symptoms Ears, Nose, & Throat: No Symptoms Respiratory: Cough, Dyspnea Cardiac: No Chest Pain Abdominal/Gastrointestinal: No Abdominal Pain, No Nausea, No Vomiting Musculoskeletal: No Back Pain Skin: No Rash Neurological: No Headache All Other Systems: Reviewed and Negative - Past Medical History Pertinent Past Medical History: Yes Neurological History: Migraines, Seizures, Other ENT History: No Pertinent History Cardiac History: Aneurysm, Hypertension, Other Respiratory History: COPD, Emphysema Endocrine Medical History: No Pertinent History Musculoskeletal History: Arthritis, Osteoporosis, Other GI Medical History: No Pertinent History History: No Pertinent History Psycho-Social History: Anxiety, Depression Female Reproductive Disorders: Cervical Cancer Other Medical History: RT LOBECTOMY, DVT while - Past Surgical History Past Surgical History: Yes Neuro Surgical History: No Pertinent History Cardiac: Cardiac Catheterization Respiratory: Lobectomy Gastrointestinal: Hernia Repair Musculoskeletal: Amputation, Other Female Surgical History: Hysterectomy Other Surgical History: 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 carpel tunnel - Social History Smoking Status: Current every day smoker How long have you smoked: 35 Exposure to second hand smoke: Yes Drug Use: none Patient Lives Alone: No Significant Family History: no pertinent family hx - Nursing Vital Signs Nursing Vital Signs: Initial Vital Signs Temperature 98.9 F 08/17/17 20:11 Pulse Rate 125 H 08/17/17 20:11 Respiratory Rate 36 H 08/17/17 20:11 Blood Pressure 160/80 08/17/17 20:11 O2 Sat by Pulse Oximetry 86 L 08/17/17 20:11 Pain Scale Pain Intensity 8 - Physical Exam General Appearance: severe distress, alert, thin Eye Exam: PERRL/EOMI Neck Exam: supple, other (JVD present) Respiratory Exam: respiratory distress, diminished breath sounds Cardiovascular/Chest Exam: regular rate/rhythm, tachycardia Abdominal/Gastrointestinal Exam: soft, No tenderness, No distention Extremity Exam: no calf tenderness, No pedal edema Neurologic Exam: alert, No motor deficits Skin Exam: warm, dry SpO2 Interpretation: hypoxic, O2 applied SpO2: 86 Oxygen Delivery: Nasal Cannula - Course Nursing assessment & vital signs reviewed: Yes EKG Interpreted by Me: RATE (130), Sinus Tach, prolonged QT interval (QTc 504), Non-specific ST Changes, Other (artifact obscures) - Radiology Exams cxr X-ray Interpretation: Interpreted by me (Severe COPD, right post op changes, left upper bleb, no PNTX) Ordered Tests: Active Orders 24 hr Category Date Time Status General Engineer STAT Care 08/17/17 20:07 Active Catheter-[place] Rain STAT Care 08/17/17 20:07 Active EKG-ER Only STAT Care 08/17/17 20:07 Active IV Insertion STAT Care 08/17/17 20:07 Active IV Insertion-2nd Peripheral STAT Care 08/17/17 20:23 Active NPO (ED) STAT Care 08/17/17 20:07 Active Pulse Oximetry (ED) STAT Care 08/17/17 20:07 Active CHEST 1 VIEW (PORTABLE) Stat Exams 08/17/17 20:07 Taken BLOOD CULTURE Stat Lab 08/17/17 20:25 Received CARBAMAZEPINE (TEGRETOL) Stat Lab 08/17/17 20:10 Completed CBC W DIFF Stat Lab 08/17/17 20:10 Completed CMP Stat Lab 08/17/17 20:10 Completed CULTURE,SPUTUM Stat Lab 08/17/17 20:57 Ordered CULTURE,URINE Stat Lab 08/17/17 21:00 Received Lactic Acid Stat Lab 08/17/17 20:24 Completed MAGNESIUM Stat Lab 08/17/17 20:10 Completed Manual Differential NC Stat Lab 08/17/17 20:10 Completed NT PRO BNP Stat Lab 08/17/17 20:10 Completed PROTIME WITH INR Stat Lab 08/17/17 20:10 Completed PTT Stat Lab 08/17/17 20:10 Completed TROPONIN Q3H Lab 08/17/17 20:30 Completed TROPONIN Q3H Lab 08/17/17 23:30 Ordered TROPONIN Q3H Lab 08/18/17 02:30 Ordered TROPONIN Q3H Lab 08/18/17 05:30 Ordered TROPONIN Q3H Lab 08/18/17 08:30 Ordered UA W/ MICROSCOPIC Stat Lab 08/17/17 21:00 Completed VENOUS BLOOD GAS Stat Lab 08/17/17 20:24 Completed Oxygen High Flow High Flow 40 lpm RT 08/17/17 20:02 Completed Respiratory Nebulizer STAT RT 08/17/17 20:08 Completed Medication Summary Generic Name Dose Route Start Last Admin Trade Name Freq PRN Reason Stop Dose Admin Enoxaparin Sodium 30 mg 08/17/17 21:45 Enoxaparin Sodium 1 mg/kg (30 mg) 09/16/17 21:44 SQ Q12H SHRUTHI Sodium Chloride 1,000 mls @ 100 mls/hr 08/17/17 20:15 08/17/17 20:22 Sodium Chloride 0.9% 1000 Ml IV 09/16/17 20:14 100 mls/hr .Q10H SHRUTHI Administration Discontinued Medications Generic Name Dose Route Start Last Admin Trade Name Vincent PRN Reason Stop Dose Admin Albuterol Sulfate 2.5 mg 08/17/17 20:07 08/17/17 20:38 Proventil 2.5 Mg/3 Ml Neb IH 08/17/17 20:08 2.5 mg STAT ONE Administration Albuterol Sulfate Confirm 08/17/17 20:35 Proventil 2.5 Mg/3 Ml Neb Administered 08/17/17 20:36 Dose 2.5 mg IH .STK-MED ONE Ceftriaxone Sodium/Dextrose 1 g in 50 mls @ 100 mls/hr 08/17/17 20:07 20:22 Rocephin 1 Gm-D5w 50 Ml Bag IV 08/17/17 20:36 100 mls/hr STAT STA Administration Azithromycin 500 mg in 250 mls @ 250 mls/hr 08/17/17 20:07 08/17/17 20:22 Zithromax 500 Mg/ 250 Ml Nacl Premix IV 08/17/17 21:06 250 mls/hr STAT STA Administration Azithromycin Confirm 08/17/17 20:12 Zithromax 500 Mg/ 250 Ml Nacl Premix Administered 08/17/17 20:13 Dose 500 mg in 250 mls @ ud IV .STK-MED ONE Ceftriaxone Sodium/Dextrose Confirm 08/17/17 20:12 Rocephin 1 Gm-D5w 50 Ml Bag Administered 08/17/17 20:13 Dose 1 g in 50 mls @ ud IV .STK-MED ONE Lorazepam 0.25 mg 08/17/17 20:55 08/17/17 21:04 Ativan 2 Mg/1 Ml Vial IV 08/17/17 20:56 0.25 mg STAT ONE Administration Lorazepam Confirm 08/17/17 21:02 Ativan 2 Mg/1 Ml Vial Administered 08/17/17 21:03 Dose 2 mg .ROUTE .STK-MED ONE Lab/Rad Data: Laboratory Result Diagrams 08/17/17 20:10 08/17/17 20:10 Laboratory Results 08/17/17 08/17/17 08/17/17 Range/Units 21:00 20:30 20:28 WBC (4.0-10.5) K/mm3 RBC (4.1-5.4) M/mm3 Hgb (12.0-16.0) gm/dl Hct (35-47) % MCV (78-100) fl MCH (26-32) pg MCHC (32-36) g/dl RDW (11.5-14.0) % Plt Count (150-450) K/mm3 MPV (6-9.5) fl INR (0.8-3.0) APTT (25.3-37.0) SECONDS VBG pH (7.32-7.42) VBG pCO2 at Pat Temp (42-55) mm/Hg VBG pO2 at Pat Temp (25-40) mm/Hg VBG HCO3 (22-28) meq/L VBG O2 Sat (Arleen) (95-100) VBG Base Excess (-2.0-2.0) VBG Hemoglobin VBG Carboxyhemoglobin (0.0-6.9) % T HGB POC Potassium (3.5-5.1) Sodium (136-145) mEq/L Potassium (3.5-5.1) mEq/L Chloride (98-107) mEq/L Carbon Dioxide (21-32) mEq/L Anion Gap (5-15) MEQ/L BUN (9-20) mg/dL Creatinine (0.55-1.30) mg/dl Estimated GFR ML/MIN Glucose (70-110) MG/DL Lactic Acid (0.4-2.0) Calcium (8.5-10.1) mg/dL Magnesium (1.8-2.4) mg/dL Total Bilirubin (0.2-1.0) mg/dL AST (15-37) U/L ALT (12-78) U/L Alkaline Phosphatase (46-116) U/L Troponin I 0.818 H* (0.000-0.056) ng/ml NT-Pro-B Natriuret Pep (0-125) pg/ml Serum Total Protein (6.4-8.2) gm/dL Albumin (3.4-5.0) g/dL Ur Collection Type CCMS Urine Color YELLOW (YELLOW) Urine Appearance CLEAR (CLEAR) Urine pH 5.0 (5-6) Ur Specific Widener 1.030 (1.005-1.025) Urine Protein TRACE (Negative) Urine Ketones NEGATIVE (NEGATIVE) Urine Blood TRACE NON-HEM (0-5) Karri/ul Urine Nitrite NEGATIVE (NEGATIVE) Urine Bilirubin NEGATIVE (NEGATIVE) Urine Urobilinogen NORMAL (0-1) mg/dL Ur Leukocyte Esterase NEGATIVE (NEGATIVE) Urine Microscopic RBC 2-5 (0-2) /HPF Urine Microscopic WBC 0-2 (0-5) /HPF Ur Epithelial Cells RARE (FEW) /HPF Urine Bacteria RARE (NEGATIVE) /HPF Hyaline Casts 0-2 (0-2) /LPF Urine Mucus MODERATE (NEGATIVE) /HPF Urine Glucose NEGATIVE (NEGATIVE) mg/dL Carbamazepine (4.0-12.0) ug/ml Influenza Type A Ag NEGATIVE (NEGATIVE) Influenza Type B Ag NEGATIVE (NEGATIVE) Specimen Received 08-17-17212808/17/17 08/17/17 08/17/17 Range/Units 20:24 20:24 20:10 WBC (4.0-10.5) K/mm3 RBC (4.1-5.4) M/mm3 Hgb (12.0-16.0) gm/dl Hct (35-47) % MCV (78-100) fl MCH (26-32) pg MCHC (32-36) g/dl RDW (11.5-14.0) % Plt Count (150-450) K/mm3 MPV (6-9.5) fl INR (0.8-3.0) APTT (25.3-37.0) SECONDS VBG pH 7.44 H (7.32-7.42) VBG pCO2 at Pat Temp 33 L (42-55) mm/Hg VBG pO2 at Pat Temp 169 H (25-40) mm/Hg VBG HCO3 22.4 (22-28) meq/L VBG O2 Sat (Arleen) 98.2 (95-100) VBG Base Excess -1.0 (-2.0-2.0) VBG Hemoglobin 15.2 VBG Carboxyhemoglobin 5.0 (0.0-6.9) % T HGB POC Potassium 4.2 (3.5-5.1) Sodium (136-145) mEq/L Potassium (3.5-5.1) mEq/L Chloride (98-107) mEq/L Carbon Dioxide (21-32) mEq/L Anion Gap (5-15) MEQ/L BUN (9-20) mg/dL Creatinine (0.55-1.30) mg/dl Estimated GFR ML/MIN Glucose (70-110) MG/DL Lactic Acid 1.8 (0.4-2.0) Calcium (8.5-10.1) mg/dL Magnesium (1.8-2.4) mg/dL Total Bilirubin (0.2-1.0) mg/dL AST (15-37) U/L ALT (12-78) U/L Alkaline Phosphatase (46-116) U/L Troponin I (0.000-0.056) ng/ml NT-Pro-B Natriuret Pep (0-125) pg/ml Serum Total Protein (6.4-8.2) gm/dL Albumin (3.4-5.0) g/dL Ur Collection Type Urine Color (YELLOW) Urine Appearance (CLEAR) Urine pH (5-6) Ur Specific Widener (1.005-1.025) Urine Protein (Negative) Urine Ketones (NEGATIVE) Urine Blood (0-5) Karri/ul Urine Nitrite (NEGATIVE) Urine Bilirubin (NEGATIVE) Urine Urobilinogen (0-1) mg/dL Ur Leukocyte Esterase (NEGATIVE) Urine Microscopic RBC (0-2) /HPF Urine Microscopic WBC (0-5) /HPF Ur Epithelial Cells (FEW) /HPF Urine Bacteria (NEGATIVE) /HPF Hyaline Casts (0-2) /LPF Urine Mucus (NEGATIVE) /HPF Urine Glucose (NEGATIVE) mg/dL Carbamazepine 7.5 (4.0-12.0) ug/ml Influenza Type A Ag (NEGATIVE) Influenza Type B Ag (NEGATIVE) Specimen Received 08/17/17 08/17/17 08/17/17 Range/Units 20:10 20:10 20:10 WBC (4.0-10.5) K/mm3 RBC (4.1-5.4) M/mm3 Hgb (12.0-16.0) gm/dl Hct (35-47) % MCV (78-100) fl MCH (26-32) pg MCHC (32-36) g/dl RDW (11.5-14.0) % Plt Count (150-450) K/mm3 MPV (6-9.5) fl INR 1.05 (0.8-3.0) APTT 39.5 H (25.3-37.0) SECONDS VBG pH (7.32-7.42) VBG pCO2 at Pat Temp (42-55) mm/Hg VBG pO2 at Pat Temp (25-40) mm/Hg VBG HCO3 (22-28) meq/L VBG O2 Sat (Arleen) (95-100) VBG Base Excess (-2.0-2.0) VBG Hemoglobin VBG Carboxyhemoglobin (0.0-6.9) % T HGB POC Potassium (3.5-5.1) Sodium 142 (136-145) mEq/L Potassium 4.2 (3.5-5.1) mEq/L Chloride 101 (98-107) mEq/L Carbon Dioxide 27.4 (21-32) mEq/L Anion Gap 17.9 H (5-15) MEQ/L BUN 11 (9-20) mg/dL Creatinine 0.97 (0.55-1.30) mg/dl Estimated GFR > 60 ML/MIN Glucose 127 H (70-110) MG/DL Lactic Acid (0.4-2.0) Calcium 9.3 (8.5-10.1) mg/dL Magnesium 2.0 (1.8-2.4) mg/dL Total Bilirubin 0.30 (0.2-1.0) mg/dL AST 23 (15-37) U/L ALT 15 (12-78) U/L Alkaline Phosphatase 174 H (46-116) U/L Troponin I (0.000-0.056) ng/ml NT-Pro-B Natriuret Pep 91 (0-125) pg/ml Serum Total Protein 7.4 (6.4-8.2) gm/dL Albumin 3.5 (3.4-5.0) g/dL Ur Collection Type Urine Color (YELLOW) Urine Appearance (CLEAR) Urine pH (5-6) Ur Specific Widener (1.005-1.025) Urine Protein (Negative) Urine Ketones (NEGATIVE) Urine Blood (0-5) Karri/ul Urine Nitrite (NEGATIVE) Urine Bilirubin (NEGATIVE) Urine Urobilinogen (0-1) mg/dL Ur Leukocyte Esterase (NEGATIVE) Urine Microscopic RBC (0-2) /HPF Urine Microscopic WBC (0-5) /HPF Ur Epithelial Cells (FEW) /HPF Urine Bacteria (NEGATIVE) /HPF Hyaline Casts (0-2) /LPF Urine Mucus (NEGATIVE) /HPF Urine Glucose (NEGATIVE) mg/dL Carbamazepine (4.0-12.0) ug/ml Influenza Type A Ag (NEGATIVE) Influenza Type B Ag (NEGATIVE) Specimen Received 08/17/17 Range/Units 20:10 WBC 21.8 H (4.0-10.5) K/mm3 RBC 5.08 (4.1-5.4) M/mm3 Hgb 15.4 (12.0-16.0) gm/dl Hct 48.4 H (35-47) % MCV 95.3 (78-100) fl MCH 30.3 (26-32) pg MCHC 31.8 L (32-36) g/dl RDW 12.8 (11.5-14.0) % Plt Count 617 H (150-450) K/mm3 MPV 9.4 (6-9.5) fl INR (0.8-3.0) APTT (25.3-37.0) SECONDS VBG pH (7.32-7.42) VBG pCO2 at Pat Temp (42-55) mm/Hg VBG pO2 at Pat Temp (25-40) mm/Hg VBG HCO3 (22-28) meq/L VBG O2 Sat (Arleen) (95-100) VBG Base Excess (-2.0-2.0) VBG Hemoglobin VBG Carboxyhemoglobin (0.0-6.9) % T HGB POC Potassium (3.5-5.1) Sodium (136-145) mEq/L Potassium (3.5-5.1) mEq/L Chloride (98-107) mEq/L Carbon Dioxide (21-32) mEq/L Anion Gap (5-15) MEQ/L BUN (9-20) mg/dL Creatinine (0.55-1.30) mg/dl Estimated GFR ML/MIN Glucose (70-110) MG/DL Lactic Acid (0.4-2.0) Calcium (8.5-10.1) mg/dL Magnesium (1.8-2.4) mg/dL Total Bilirubin (0.2-1.0) mg/dL AST (15-37) U/L ALT (12-78) U/L Alkaline Phosphatase (46-116) U/L Troponin I (0.000-0.056) ng/ml NT-Pro-B Natriuret Pep (0-125) pg/ml Serum Total Protein (6.4-8.2) gm/dL Albumin (3.4-5.0) g/dL Ur Collection Type Urine Color (YELLOW) Urine Appearance (CLEAR) Urine pH (5-6) Ur Specific Widener (1.005-1.025) Urine Protein (Negative) Urine Ketones (NEGATIVE) Urine Blood (0-5) Karri/ul Urine Nitrite (NEGATIVE) Urine Bilirubin (NEGATIVE) Urine Urobilinogen (0-1) mg/dL Ur Leukocyte Esterase (NEGATIVE) Urine Microscopic RBC (0-2) /HPF Urine Microscopic WBC (0-5) /HPF Ur Epithelial Cells (FEW) /HPF Urine Bacteria (NEGATIVE) /HPF Hyaline Casts (0-2) /LPF Urine Mucus (NEGATIVE) /HPF Urine Glucose (NEGATIVE) mg/dL Carbamazepine (4.0-12.0) ug/ml Influenza Type A Ag (NEGATIVE) Influenza Type B Ag (NEGATIVE) Specimen Received - Progress Progress Note: 08/17/17 20:24 Extreme distress on arrival, air hungry, almost combative. Placed on high flow oxygen and she gradually is improving. Now answering questions. Pulse ox currently 99% on high flow with FIO2 100. 08/17/17 21:36 ASA not given as allergic. She has no chest pain. She has apparently primarily respiratory problem. She is improving with high flow oxygen. Called Dr Merritt (oc ) who will admit to ICU. Will follow serial troponins. 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 Will treat as pneumonia/COPD. Lovenox given. Counseled pt/family regarding: lab results, diagnosis, need for follow-up, rad results, smoking cessation - Departure Time of Disposition: 21:38 Departure Disposition: In-patient Admission (ICU) Clinical Impression: COPD with acute exacerbation, Acute respiratory distress, Elevated troponin Condition: Serious Critical Care Time: Yes Critical Care Time(excluding separately billable procedures): 30-74 minutes Referrals: JC HAUSER [Primary Care Provider] - Instructions: Chronic Obstructive Pulmonary Disease
[2017-08-17 20:32] LABS: VBG HCO3- 22.4 meq/L (22-28); VBG HEMOGLOBIN 15.2; VBG O2 SATURATION 98.2 (95-100); VBG POTASSIUM 4.2 (3.5-5.1); VBG pH 7.44 (7.32-7.42)
[2017-08-17 20:42] LABS: Granulocyte Absolute (ANC) 14.69 (1.4-6.9); Hematocrit 48.4 % (35-47); Hemoglobin 15.4 gm/dl (12.0-16.0); Mean Cell Volume 95.3 fl (78-100); Mean Corpuscular Hemoglobin 30.3 pg (26-32); Mean Corpuscular Hgb Concent. 31.8 g/dl (32-36); Mean Platelet Volume 9.4 fl (6-9.5); Platelet Count 617 K/mm3 (150-450); Red Blood Count 5.08 M/mm3 (4.1-5.4); Red Cell Distribution Width 12.8 % (11.5-14.0); White Blood Count 21.8 K/mm3 (4.0-10.5)
[2017-08-17 20:52] LABS: INFLUENZA A NEGATIVE (NEGATIVE); INFLUENZA B NEGATIVE (NEGATIVE)
[2017-08-17 20:55] LABS: INR 1.05 (0.8-3.0)
[2017-08-17] MEDS ORDERED: Ativan 2 MG/1 ML VIAL IV ONE (20:55)
[2017-08-17 20:58] LABS: PTT 39.5 SECONDS (25.3-37.0)
[2017-08-17 21:00] LABS: ALBUMIN 3.5 g/dL (3.4-5.0); ALKALINE PHOSPHATASE 174 U/L (46-116); ANION GAP 17.9 MEQ/L (5-15); BLOOD UREA NITROGEN 11 mg/dL (9-20); CHLORIDE 101 mEq/L (98-107); Calcium 9.3 mg/dL (8.5-10.1); Carbon Dioxide 27.4 mEq/L (21-32); Creatinine 1 0.97 mg/dl (0.55-1.30); EST GLOMERULAR FILTRATION RATE > 60 ML/MIN; Glucose 127 MG/DL (70-110); Potassium 4.2 mEq/L (3.5-5.1); SGOT/AST 23 U/L (15-37); SGPT/ALT 15 U/L (12-78); SODIUM 142 mEq/L (136-145); Total Protein 7.4 gm/dL (6.4-8.2)
[2017-08-17] MEDS ORDERED: Ativan 2 MG/1 ML VIAL ONE (21:02)
[2017-08-17 21:29] LABS: Appearance CLEAR (CLEAR); Leukocyte Esterase NEGATIVE (NEGATIVE); Nitrite NEGATIVE (NEGATIVE); Protein,Urine Dip TRACE (Negative)
[2017-08-17 21:30] LABS: Bilirubin NEGATIVE (NEGATIVE); Blood TRACE NON-HEM Ery/ul (0-5); Glucose NEGATIVE (NEGATIVE); Ketones NEGATIVE (NEGATIVE); Mucus MODERATE /HPF (NEGATIVE); Urobilinogen NORMAL mg/dL (0-1); WBC 0-2 /HPF (0-5)
[2017-08-17 21:31] LABS: Bacteria RARE /HPF (NEGATIVE); Epithelial Cells RARE /HPF (FEW); Hyaline Casts 0-2 /LPF (0-2)
[2017-08-17] MEDS ORDERED: ENOXAPARIN SODIUM SQ ONE (21:40)
[2017-08-17] MEDS ORDERED: ENOXAPARIN SODIUM SQ SCH ×2 (21:45→22:20)
[2017-08-17] MEDS ORDERED: TYLENOL 325 MG PO PRN (22:20)
[2017-08-17] MEDS ORDERED: Pepcid 20 MG VIAL IV SCH (22:20)
[2017-08-17] MEDS ORDERED: PROVENTIL 2.5 MG/3 ML NEB IH PRN (22:20)
[2017-08-17] MEDS ORDERED: Spiriva 18 Mcg/Cap Inhaler IH ONE (22:47)
[2017-08-17] MEDS: PROVENTIL 2.5 MG/3 ML NEB IH SCH (22:51)
[2017-08-17] MEDS ORDERED: PROVENTIL COMMON CANISTER IH PRN (22:59)
[2017-08-17] MEDS ORDERED: DUONEB 0.5-3 MG/3 ml Neb IH SCH (23:00)
[2017-08-17] MEDS ORDERED: Tegretol 200 MG PO ONE (23:55)
[2017-08-18] MEDS ORDERED: Zanaflex 4 MG PO ONE (00:15)
[2017-08-18] MEDS ORDERED: DESYREL 50 MG PO ONE (00:15)
[2017-08-18] MEDS ORDERED: zyPREXA 5MG TABLET PO ONE (00:15)
[2017-08-18] MEDS ORDERED: TYLENOL W/ CODEINE 5 ML UD CUP ONE (00:18)
[2017-08-18] MEDS ORDERED: TYLENOL W/ CODEINE 5 ML UD CUP PO ONE (00:33)
[2017-08-18 00:34] LABS: Eosinophil 2 % (0.00-3.0); Lymphocytes 20 % (24-44); Monocyte 8 % (0.0-12.0); Neutrophils 70 % (36.0-66.0); Platelet Estimate NORMAL (NORMAL); Total Cells Counted 100
[2017-08-18] MEDS: Sodium Chloride 0.9% 1000 ML 1,000 ML IV SCH ×2 (00:38→07:35)
[2017-08-18] MEDS ORDERED: solu-MEDROL 40 MG ONE (01:51)
[2017-08-18] MEDS: solu-MEDROL 125 MG IV SCH ×2 (01:52→05:30)
--- NOTE | 2017-08-18 01:52 | PCM.SSS ---
History of Present Illness - Chief Complaint Chief Complaint: COPD Exacerbation, acute respiratory distress, elevated troponin History of Present Illness: is a 52 year old female who arrived to the ER with a 3 week history of productive cough and progressive shortness of breath. She has a history of severe COPD, follows with Dr Garcia. Her family physician is Dr Hauser. She arrived in respiratory distress and was put on high flow oxygen and improved , since admission her troponin has jumped to 5.193 and she has developed some mild discomfort in her chest which she states was present prior to arrival, no cardiac history that she knows of but states she had a normal heart cath several years ago with Dr Nicole. - Review of Systems Constitutional: No Fever, No Chills Respiratory: Cough, Short Of Breath, Wheezing Cardiac: Chest Pain Abdominal/Gastrointestinal: No Abdominal Pain, No Nausea, No Vomiting, No Diarrhea Genitourinary Symptoms: No Dysuria Skin: No Rash All Other Systems: Reviewed and Negative Medications & Allergies Home Medications: Home Medication List Albuterol Sulfate [Ventolin Hfa] 2 puff IH QID PRN PRN 10/13/16 [History Confirmed 08/17/17] Trazodone HCl 50 mg [Desyrel 50 mg] 100 mg PO QHS 10/13/16 [History Confirmed 08/17/17] Tizanidine HCl 4 mg [Zanaflex 4 MG] 2 mg PO QID 06/06/17 [History Confirmed 08/17/17] Alendronate Sodium 70 mg PO WEEKLY 06/30/17 [History Confirmed 08/17/17] Cholecalciferol (Vitamin D3) [Vitamin D3] 50,000 unit PO WEEKLY 06/30/17 [ History Confirmed 08/17/17] Lisinopril 10 mg [Zestril 10 MG] 10 mg PO DAILY 06/30/17 [History Confirmed 08/17/17] Mirtazapine 30 mg PO HS 06/30/17 [History Confirmed 08/17/17] Acetaminophen with Codeine [Acetamin-Codein 300-30 mg/12.5] 1 tab PO Q6H PRN PRN 08/17/17 [History Confirmed 08/17/17] Budesonide/Formoterol Fumarate [Symbicort 160-4.5 Mcg Inhaler] 2 puff IH BID [History Confirmed 08/17/17] Buprenorphine 10 mg TOP WEEKLY 08/17/17 [History Confirmed 08/17/17] Carbamazepine [Carbamazepine ER] 200 mg PO BID 08/17/17 [History Confirmed 08/17] Olanzapine 10 mg PO QHS 08/17/17 [History Confirmed 08/17/17] Tiotropium [place] Inhaler [Spiriva 18 Mcg/Cap Inhaler] 1 cap IH DAILY [History Confirmed 08/17/17] Allergies/Adverse Reactions: Allergies Allergy/AdvReac Type Severity Reaction Status Date / Time aspirin Allergy Verified 08/17/17 22:42 - Past Medical History Past Medical History: Yes Neurological History: Migraines, Seizures, Other ENT History: No Pertinent History Cardiac History: Aneurysm, Hypertension, Other Respiratory History: COPD, Emphysema Endocrine Medical History: No Pertinent History Musculoskelatal History: Arthritis, Osteoporosis, Other GI Medical History: No Pertinent History History: No Pertinent History Pyscho-Social History: Anxiety, Depression Reproductive Disorders: Cervical Cancer Comment: DVT while - Female History Hx Last Menstrual Period: HYST Are you now?: No - Past Surgical History Past Surgical History: Yes Neuro Surgical History: No Pertinent History Cardiac History: Cardiac Catheterization Respiratory Surgery: Lobectomy GI Surgical History: Hernia Repair Musculskeletal Surgical Hx: Amputation, Other Female Surgical History: Hysterectomy Other Surgical History: 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 carpel tunnel - Social History Smoking Status: Former smoker How long have you smoked: 35 years Exposure to second hand smoke: Yes Alcohol: None Drug Use: none Significant Family History: no pertinent family hx - Physical Exam Vital Signs: Vital Signs - 24 hr Temp Pulse Resp BP Pulse Ox 08/18/17 01:00 99 F 91 H 23 104/77 99 08/18/17 00:30 99 F 91 H 23 83/63 99 08/17/17 23:06 99 F 113 H 22 122/87 97 08/17/17 22:01 110 H 26 H 90/50 99 08/17/17 21:38 86 L 08/17/17 21:36 118 H 22 119/94 99 08/17/17 21:24 120 H 26 H 120/90 99 08/17/17 20:55 124 H 24 118/88 98 08/17/17 20:53 97 08/17/17 20:38 128 H 30 H 98 08/17/17 20:35 120 H 28 H 124/72 98 08/17/17 20:11 98.9 F 125 H 36 H 160/80 86 L Oxygen-Last 24 hours O2 Percentage 50% O2 Percentage 50% O2 Percentage 50% O2 Percentage 60% O2 Percentage 100% Oxygen Flowrate (L/min)-RT 15 Oxygen Flowrate (L/min)-RT 15 Oxygen Flowrate (L/min)-RT 15 General Appearance: mild distress, alert Neurologic Exam: alert, oriented x 3 Respiratory Exam: respiratory distress (on high flow oxygen 48%), diminished breath sounds, prolonged expirations Cardiovascular Exam: regular rate/rhythm, normal heart sounds, normal peripheral pulses Gastrointestinal/Abdomen Exam: soft, normal bowel sounds, No tenderness, No mass Extremity Exam: normal inspection, normal range of motion, pelvis stable Skin Exam: normal color, warm, dry, No rash Results - Labs Lab/Micro Results: Lab Results-Last 24 Hours 08/17/17 Range/Units 23:40 Troponin I 5.193 H* (0.000-0.056) ng/ml - Other Procedures and Tests Respiratory Therapy 08/17/17 23:00 Respiratory Nebulizer Q4H 08/17/17 23:01 Respiratory Nebulizer PRN 08/17/17 23:02 Oxygen High Flow High Flow 40 lpm Respiratory MDI UD 08/18/17 07:00 Respiratory MDI BID 08/18/17 10:00 Respiratory MDI DAILY Assessment/Plan (1) Non-ST elevated myocardial infarction (non-STEMI) Current Visit: Yes Status: Acute Assessment & Plan: case has been discussed with Dr Nicole, EKG was trandmitted to him and he requests patient transfer to regional for possible cath and cardiology consultation. spoke with Karissa PARKER with hospitalist service who agrees to accept patient in transfer to [facility] ICU with accepting physician Dr Pilo Fallon, patient has an aspirin allergy but was given Lovenox in the ER Code(s): I21.4 - NON-ST ELEVATION (NSTEMI) MYOCARDIAL INFARCTION (2) Acute respiratory distress Current Visit: Yes Status: Acute Assessment & Plan: currently stable on high flow oxygen Code(s): R06.03 - ACUTE RESPIRATORY DISTRESS (3) COPD with acute exacerbation Current Visit: Yes Status: Acute Assessment & Plan: stable currently, has been given IV solumedrol, rocephin and zithromax Code(s): J44.1 - CHRONIC OBSTRUCTIVE PULMONARY DISEASE W (ACUTE) EXACERBATION (4) Hypoxia Current Visit: No Status: Acute Code(s): R09.02 - HYPOXEMIA Hospital Summary - Vitals & Intake/Output Vital Signs: Vital Signs Temperature 99 F 08/18/17 01:00 Pulse Rate 91 H 08/18/17 01:00 Respiratory Rate 23 08/18/17 01:00 Blood Pressure 104/77 08/18/17 01:00 O2 Sat by Pulse Oximetry 99 08/18/17 01:00 Oxygen-Last Documented O2 Percentage 50% Intake & Output: Intake & Output 08/15/17 08/16/17 08/17/17 08/18/17 11:59 11:59 11:59 11:59 Weight 31.8 kg - Lab Result Diagrams: 08/17/17 20:10 08/17/17 20:10 Lab Results-Last 24 Hrs: Lab Results-Last 24 Hours 08/17/17 Range/Units 23:40 Troponin I 5.193 H* (0.000-0.056) ng/ml - Procedures and Test Procedures and Tests throughout Hospitalization: Therapy Orders & Screens 08/17/17 23:00 Respiratory Nebulizer Q4H Comment: ALBUTEROL Q4 HOURS Diagnosis: Shortness of Breath 08/17/17 23:01 Respiratory Nebulizer PRN Comment: ALBUTEROL Q2PRN FOR SOB/WHEEZING Diagnosis: Shortness of Breath 08/17/17 23:02 Oxygen High Flow High Flow 40 lpm Comment: 50% O2 TO KEEP SPO2 >92% PER R.T. PROTOCOL Diagnosis: Shortness of Breath Respiratory MDI UD Comment: ALBUTEROL 2 PUFFS QIDPRN FOR SOB/WHEEZING Diagnosis: Shortness of Breath 08/18/17 00:52 EKG STAT Comment: Diagnosis: COPD Exacerbation, acute respiratory distress, elevated troponin 08/18/17 07:00 Respiratory MDI BID Comment: ADVAIR 230/21 2 PUFFS BID Diagnosis: Shortness of Breath 08/18/17 10:00 Respiratory MDI DAILY Comment: SPIRIVA 1 CAPSULE DAILY Diagnosis: Shortness of Breath - [facility]charge [facility] Condition: Serious Prescriptions: No Action Trazodone HCl 50 mg [Desyrel 50 mg] 100 mg PO QHS Albuterol Sulfate [Ventolin Hfa] 2 puff IH QID PRN PRN PRN Reason: Shortness Of Breath Tizanidine HCl 4 mg [Zanaflex 4 MG] 2 mg PO QID Mirtazapine 30 mg PO HS Lisinopril 10 mg [Zestril 10 MG] 10 mg PO DAILY Cholecalciferol (Vitamin D3) [Vitamin D3] 50,000 unit PO WEEKLY Alendronate Sodium 70 mg PO WEEKLY Tiotropium [place] Inhaler [Spiriva 18 Mcg/Cap Inhaler] 1 cap IH DAILY Carbamazepine [Carbamazepine ER] 200 mg PO BID Olanzapine 10 mg PO QHS Buprenorphine 10 mg TOP WEEKLY Budesonide/Formoterol Fumarate [Symbicort 160-4.5 Mcg Inhaler] 2 puff IH BID Acetaminophen with Codeine [Acetamin-Codein 300-30 mg/12.5] 1 tab PO Q6H PRN PRN PRN Reason: Pain Instructions: Chronic Obstructive Pulmonary Disease Follow up with: JC HAUSER [Primary Care Provider] -
[2017-08-18] MEDS: PROVENTIL 2.5 MG/3 ML NEB IH SCH ×2 (02:19→06:50)
[2017-08-18] MEDS ORDERED: Ativan 2 MG/1 ML VIAL IV ONE ×2 (02:23→08:30)
[2017-08-18 04:32] LABS: BASOPHIL % 0.1 % (0.0-0.4); Basophil (Absolute #) 0.01 (0-0.4); Eosinophil (Absolute #) 0 (0-0.5); Granulocyte Absolute (ANC) 11.45 (1.4-6.9); Granulocytes % 91.8 % (36.0-66.0); Hematocrit 37.7 % (35-47); Hemoglobin 12.2 gm/dl (12.0-16.0); Lymphocyte (Absolute #) 0.73 (1.0-4.6); Lymphocytes % 5.9 % (24.0-44.0); Mean Cell Volume 94.3 fl (78-100); Mean Corpuscular Hemoglobin 30.5 pg (26-32); Mean Corpuscular Hgb Concent. 32.4 g/dl (32-36); Mean Platelet Volume 9.3 fl (6-9.5); Monocyte (Absolute #) 0.28 (0.0-1.3); Monocytes % 2.2 % (0.0-12.0); Platelet Count 398 K/mm3 (150-450); Red Cell Distribution Width 12.4 % (11.5-14.0); White Blood Count 12.5 K/mm3 (4.0-10.5)
[2017-08-18 04:51] LABS: ALBUMIN 2.7 g/dL (3.4-5.0); ALKALINE PHOSPHATASE 127 U/L (46-116); ANION GAP 12.9 MEQ/L (5-15); BLOOD UREA NITROGEN 9 mg/dL (9-20); CHLORIDE 107 mEq/L (98-107); Calcium 7.9 mg/dL (8.5-10.1); Creatinine 1 0.56 mg/dl (0.55-1.30); EST GLOMERULAR FILTRATION RATE > 60 ML/MIN; Glucose 151 MG/DL (70-110); Potassium 4.4 mEq/L (3.5-5.1); SGOT/AST 37 U/L (15-37); SGPT/ALT 15 U/L (12-78); SODIUM 141 mEq/L (136-145); Total Protein 5.6 gm/dL (6.4-8.2)
[2017-08-18 06:41] VITALS: BP 97/70
[2017-08-18 06:55] VITALS: PULSE 81; O2SAT 100
[2017-08-18] MEDS ORDERED: solu-MEDROL 40 MG IV SCH (07:00)
[2017-08-18] MEDS ORDERED: Advair Hfa 230/21 Mcg COMMON CANISTER IH SCH (07:00)
[2017-08-18 07:02] LABS: Lactic Acid 0.9 (0.4-2.0); VBG BASE EXCESS 2.8 (-2.0-2.0); VBG HCO3- 27.9 meq/L (22-28); VBG HEMOGLOBIN 12.9; VBG O2 SATURATION 98.8 (95-100); VBG POTASSIUM 4.7 (3.5-5.1); VBG pH 7.41 (7.32-7.42)
[2017-08-18] MEDS ORDERED: ACETAMINOPHEN WITH CODEINE PO PRN (07:05)
[2017-08-18] MEDS ORDERED: Tylenol #3 Tablet PO PRN (07:11)
[2017-08-18] MEDS ORDERED: BUPRENORPHINE TOP SCH (07:15)
--- NOTE | 2017-08-18 08:58 | XRAY ---
Indication: Respiratory distress. Comparison: June 30, 2017. Portable chest unchanged again hyperinflated with extensive bolus emphysema, scattered fibrosis/scarring, and right lung postsurgical changes. Heart is not enlarged. No new/acute findings. Comment: Preliminary interpretation was made by [facility]. No critical discrepancy.
[2017-08-18] MEDS ORDERED: ENOXAPARIN SODIUM SQ SCH (10:00)
[2017-08-18] MEDS ORDERED: MEDICATION INTERVENTION MC SCH ×2 (10:00)
[2017-08-18] MEDS ORDERED: Spiriva 18 Mcg/Cap Inhaler IH SCH (10:00)
[2017-08-18] MEDS ORDERED: Zithromax 500 MG/ 250 ML NaCl Premix 500 MG/250 ML IVPB IV SCH (22:00)
[2017-08-18] MEDS ORDERED: zyPREXA 5MG TABLET PO SCH (22:00)
[2017-08-18] MEDS ORDERED: ROCEPHIN 1 Gm-D5w 50 ml Bag** 1 G/50 ML IVPB IV SCH (22:00)
== END 2017-08-18 08:45 | disposition short-term general hospital (02) | DRG 281 ==
LOC: ED 19:56 → ICU 22:02
PROVIDERS: ADMIT Family Medicine; ATTEND Family Medicine
DX: I21.4 Non-ST elevation (NSTEMI) myocardial infarction (principal); J44.1 Chronic obstructive pulmonary disease with (acute) exacerbation; R06.03 Acute respiratory distress; R09.02 Hypoxemia; G40.909 Epilepsy, unspecified, not intractable, without status epilepticus; I10 Essential (primary) hypertension; M81.0 Age-related osteoporosis without current pathological fracture; M19.90 Unspecified osteoarthritis, unspecified site; F41.8 Other specified anxiety disorders; Z85.41 Personal history of malignant neoplasm of cervix uteri; Z86.718 Personal history of other venous thrombosis and embolism; Z87.891 Personal history of nicotine dependence; Z79.899 Other long term (current) drug therapy
CPT/HCPCS: 36000; 36415; 51702; 71010; 80053; 80156; 81000; 82805; 83605; 83735; 83880; 84484; 85025; 85610; 85730; 87040; 87070; 87077; 87086; 87400; 93005; 93041; 94002; 94640; 94799; 96360; 96361; 96365; 96366; 99291; 99292; J0456; J0696; J1650; J2060; J2920; A9270-GY

== ENCOUNTER 2017-09-15 18:12 | Observation (INO) | payer OTHER ==
[2017-09-15] MEDS ORDERED: PROVENTIL 2.5 MG/3 ML NEB IH ONE ×2 (18:33→18:51)
[2017-09-15] MEDS ORDERED: Sodium Chloride 0.9% 1000 ML 1,000 ML IV STA (18:33)
--- NOTE | 2017-09-15 18:40 | ERPHSYRPT ---
- History of Present Illness Source: patient Exam Limitations: no limitations Patient Subjective Stated Complaint: pt co increase sob today, pt has end stage copd, no fever, cough poductive cough Triage Nursing Assessment: pt alert, arrived per ambulance, in resp distess, skin w/d, has productive sough, green sputum Timing/Duration: day(s) (symptoms for 3 days worse today) Activities at Onset: none Severity of Dyspnea-Max: moderate Severity of Dyspnea-Current: moderate Possible Cause: frequent episodes Modifying Factors: Improves With: albuterol inhaler Associated Symptoms: cough, wheezing, heart racing, productive cough, tightness , No chest pain/discomfort, No edema, No fever, No insomnia, No loss of appetite , No lightheadedness, No weakness, No ankle swelling, No chills, No hemoptysis, No calf pain, No dizziness, No heaviness, No lightheadedness, No leg swelling, No muscle spasms feet, No muscle spasms hands, No painful breathing, No sweating , No tingling face, No tingling hands International travel in last 2 weeks: No Hx Tetanus, Diphtheria Vaccination/Date Given: No Hx Influenza Vaccination/Date Given: Yes Hx Pneumococcal Vaccination/Date Given: Yes <AMBERLY MOORE - Last Filed: 09/15/17 19:10> <DILAN LAZARO - Last Filed: 09/15/17 20:21> - History of Present Illness Time Seen by Provider: 09/15/17 18:30 Physician History: 52-year-old white female with history of end-stage COPD arrives with complaint of short of breath cough productive of green sputum fevers symptoms for 3 days she states she feels tight with breathing no other chest pain. No vomiting no diarrhea. Patient apparently is noted to be a quite thin she tells the nurse that she can' t eat because she is so short of breath. Past medical history includes migraines, seizures, COPD, emphysema, brain aneurysm, high blood pressure, cervical cancer , arthritis, osteoporosis, anxiety, depression Past surgical history includes hysterectomy hernia repair cardiac catheter lobectomy hemorrhoids, hysterectomy Social history patient smokes (AMBERLY MOORE) Allergies/Adverse Reactions: aspirin Allergy (Verified 09/15/17 18:30) Home Medications: Albuterol Sulfate [Ventolin Hfa] 2 puff IH QID PRN PRN 10/13/16 [History] Trazodone HCl 50 mg [Desyrel 50 mg] 100 mg PO QHS 10/13/16 [History] Tizanidine HCl 4 mg [Zanaflex 4 MG] 2 mg PO QID 06/06/17 [History] Alendronate Sodium 70 mg PO WEEKLY 06/30/17 [History] Cholecalciferol (Vitamin D3) [Vitamin D3] 50,000 unit PO WEEKLY 06/30/17 [ History] Lisinopril 10 mg [Zestril 10 MG] 10 mg PO DAILY 06/30/17 [History] Mirtazapine 30 mg PO HS 06/30/17 [History] Acetaminophen with Codeine [Acetamin-Codein 300-30 mg/12.5] 1 tab PO Q6H PRN PRN 08/17/17 [History] Budesonide/Formoterol Fumarate [Symbicort 160-4.5 Mcg Inhaler] 2 puff IH BID [History] Buprenorphine 10 mg TOP WEEKLY 08/17/17 [History] Carbamazepine [Carbamazepine ER] 200 mg PO BID 08/17/17 [History] Olanzapine 10 mg PO QHS 08/17/17 [History] Tiotropium [place] Inhaler [Spiriva 18 Mcg/Cap Inhaler] 1 cap IH DAILY [History] Clopidogrel Bisulfate [Clopidogrel] 75 mg DAILY 09/15/17 [History] Metoprolol Tartrate 25 mg [Lopressor 25MG Tab] 12.5 mg BID 09/15/17 [ History] - Review of Systems Constitutional: No Fever, No Chills Eyes: No Symptoms Ears, Nose, & Throat: No Symptoms Respiratory: Cough, Dyspnea, Wheezing Cardiac: No Chest Pain, No Edema, No Syncope Abdominal/Gastrointestinal: Appetite Changes (occult to eat because she is so short of breath), No Abdominal Pain, No Nausea, No Vomiting, No Diarrhea Genitourinary Symptoms: No Dysuria Musculoskeletal: No Back Pain, No Neck Pain Skin: No Rash Neurological: No Dizziness, No Focal Weakness, No Sensory Changes Psychological: No Symptoms Endocrine: No Symptoms All Other Systems: Reviewed and Negative <AMBERLY MOORE - Last Filed: 09/15/17 19:10> - Past Medical History Pertinent Past Medical History: Yes Neurological History: Migraines, Seizures, Other ENT History: No Pertinent History Cardiac History: Aneurysm, Hypertension, Other Respiratory History: COPD, Emphysema Endocrine Medical History: No Pertinent History Musculoskeletal History: Arthritis, Osteoporosis, Other GI Medical History: No Pertinent History History: No Pertinent History Psycho-Social History: Anxiety, Depression Female Reproductive Disorders: Cervical Cancer Other Medical History: DVT while - Past Surgical History Past Surgical History: Yes Neuro Surgical History: No Pertinent History Cardiac: Cardiac Catheterization Respiratory: Lobectomy Gastrointestinal: Hernia Repair Musculoskeletal: Amputation, Other Female Surgical History: Hysterectomy Other Surgical History: 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 carpel tunnel - Social History Smoking Status: Current every day smoker How long have you smoked: 35 years Exposure to second hand smoke: Yes Drug Use: none Patient Lives Alone: No Significant Family History: no pertinent family hx - Female History Hx Last Menstrual Period: post Hx Now: No <AMBERLY MOORE - Last Filed: 09/15/17 19:10> - Physical Exam General Appearance: moderate distress, other (thin white female tachypnea alert oriented pleasant and cooperative to examination) Eye Exam: PERRL/EOMI Ears, Nose, Throat Exam: hearing grossly normal, normal ENT inspection, normal pharynx Neck Exam: normal inspection, supple Respiratory Exam: diminished breath sounds, wheezing Cardiovascular/Chest Exam: tachycardia, other (heart regular tachycardic) Abdominal/Gastrointestinal Exam: soft, No tenderness, No distention, No mass Extremity Exam: non-tender, normal range of motion, normal inspection, no calf tenderness, no pedal edema Neurologic Exam: alert, oriented x 3, cooperative, custom bookbinder II-XII nml as tested, sensation nml, No motor deficits Skin Exam: normal color, warm, No dry SpO2 Interpretation: borderline oxygenation SpO2: 98 Oxygen Delivery: Non-rebreather <AMBERLY MOORE - Last Filed: 09/15/17 19:10> - Nursing Vital Signs Nursing Vital Signs: Initial Vital Signs Temperature 99.9 F 09/15/17 18:17 Pulse Rate 120 H 09/15/17 18:17 Respiratory Rate 32 H 09/15/17 18:17 Blood Pressure 144/62 09/15/17 18:17 O2 Sat by Pulse Oximetry 94 L 09/15/17 18:17 Pain Scale Pain Intensity 0 - Course Nursing assessment & vital signs reviewed: Yes EKG Interpreted by Me: Sinus Tach, Ischemic ST-T changes, Other (T wave inversions in lateral leads) <DILAN LAZARO - Last Filed: 09/15/17 20:21> Ordered Tests: Active Orders 24 hr Category Date Time Status School Plant Consultant STAT Care 09/15/17 18:34 Active EKG-ER Only STAT Care 09/15/17 18:33 Active IV Insertion STAT Care 09/15/17 18:33 Active CHEST 1 VIEW (PORTABLE) Stat Exams 09/15/17 18:34 Taken ARTERIAL BLOOD GASES Stat Lab 09/15/17 19:06 Results CBC W DIFF Stat Lab 09/15/17 18:45 Completed CMP Stat Lab 09/15/17 18:45 Completed D-DIMER QUANTITATION Stat Lab 09/15/17 18:45 Completed TROPONIN Q3H Lab 09/15/17 19:15 Completed TROPONIN Q3H Lab 09/15/17 22:15 Ordered TROPONIN Q3H Lab 09/16/17 01:15 Ordered TROPONIN Q3H Lab 09/16/17 04:15 Ordered TROPONIN Q3H Lab 09/16/17 07:15 Ordered VENOUS BLOOD GAS Stat Lab 09/15/17 18:33 Ordered Respiratory Nebulizer STAT RT 09/15/17 18:34 Completed Medication Summary Generic Name Dose Route Start Last Admin Trade Name Freq PRN Reason Stop Dose Admin Azithromycin 500 mg in 250 mls @ 250 mls/hr 09/15/17 19:57 09/15/17 20:09 Zithromax 500 Mg/ 250 Ml Nacl Premix IV 09/15/17 20:56 250 mls/hr STAT ONE Administration Discontinued Medications Generic Name Dose Route Start Last Admin Trade Name Freq PRN Reason Stop Dose Admin Albuterol Sulfate 2.5 mg 09/15/17 18:33 09/15/17 19:06 Proventil 2.5 Mg/3 Ml Neb IH 09/15/17 18:34 2.5 mg STAT ONE Administration Albuterol Sulfate Confirm 09/15/17 18:51 Proventil 2.5 Mg/3 Ml Neb Administered 09/15/17 18:52 Dose 2.5 mg IH .STK-MED ONE Sodium Chloride 1,000 mls @ 999 mls/hr 09/15/17 18:33 09/15/17 19:16 Sodium Chloride 0.9% 1000 Ml IV 09/15/17 19:33 999 mls/hr .Q1H1M STA Administration Sodium Chloride Confirm 09/15/17 19:09 Sodium Chloride 0.9% 1000 Ml Administered 09/15/17 19:10 Dose 1,000 mls @ ud .ROUTE .STK-MED ONE Azithromycin Confirm 09/15/17 20:03 Zithromax 500 Mg/ 250 Ml Nacl Premix Administered 09/15/17 20:04 Dose 500 mg in 250 mls @ ud IV .STK-MED ONE Lab/Rad Data: Laboratory Result Diagrams 09/15/17 18:45 09/15/17 18:45 Laboratory Results 09/15/17 09/15/17 09/15/17 Range/Units 19:15 19:06 18:45 WBC (4.0-10.5) K/mm3 RBC (4.1-5.4) M/mm3 Hgb (12.0-16.0) gm/dl Hct (35-47) % MCV (78-100) fl MCH (26-32) pg MCHC (32-36) g/dl RDW (11.5-14.0) % Plt Count (150-450) K/mm3 MPV (6-9.5) fl Gran % (36.0-66.0) % Lymphocytes % (24.0-44.0) % Monocytes % (0.0-12.0) % Eosinophils % (0.00-5.0) % Basophils % (0.0-0.4) % Basophils # (0-0.4) D-Dimer 499.50 (0-500) ng/mL Puncture Site Pending pCO2 52 H (35-45) mmHg pO2 183 H* (75-100) mmHg Base Excess 2.9 H (-2.0-2.0) O2 Saturation 95.2 (94-100) g/dF ABG pH 7.36 (7.35-7.45) ABG HCO3 29.4 H* (22-28) ABG O2 Sat (Measured) 98.7 (95-100) % Rich Test Pending A-a Gradient 465 a/A Ratio 0.28 Hemoglobin 12.7 Carboxyhemoglobin 2.4 (0.0-6.9) % THgb Methemoglobin 1.0 L (1.4-1.5) % Temperature 37.0 C POC O2 Flow Rate 100 % Sodium (136-145) mEq/L Potassium 3.8 (3.5-5.1) mEq/L Chloride (98-107) mEq/L Carbon Dioxide (21-32) mEq/L Anion Gap (5-15) MEQ/L BUN (9-20) mg/dL Creatinine (0.55-1.30) mg/dl Estimated GFR ML/MIN Glucose (70-110) MG/DL Calcium (8.5-10.1) mg/dL Total Bilirubin (0.2-1.0) mg/dL AST (15-37) U/L ALT (12-78) U/L Alkaline Phosphatase (46-116) U/L Troponin I 0.020 (0.000-0.056) ng/ml Serum Total Protein (6.4-8.2) gm/dL Albumin (3.4-5.0) g/dL 09/15/17 09/15/17 Range/Units 18:45 18:45 WBC 10.3 (4.0-10.5) K/mm3 RBC 3.98 L (4.1-5.4) M/mm3 Hgb 12.3 (12.0-16.0) gm/dl Hct 38.2 (35-47) % MCV 96.0 (78-100) fl MCH 30.9 (26-32) pg MCHC 32.2 (32-36) g/dl RDW 13.0 (11.5-14.0) % Plt Count 302 (150-450) K/mm3 MPV 9.7 H (6-9.5) fl Gran % 81.3 H (36.0-66.0) % Lymphocytes % 7.6 L (24.0-44.0) % Monocytes % 10.4 (0.0-12.0) % Eosinophils % 0.5 (0.00-5.0) % Basophils % 0.2 (0.0-0.4) % Basophils # 0.02 (0-0.4) D-Dimer (0-500) ng/mL Puncture Site pCO2 (35-45) mmHg pO2 (75-100) mmHg Base Excess (-2.0-2.0) O2 Saturation (94-100) g/dF ABG pH (7.35-7.45) ABG HCO3 (22-28) ABG O2 Sat (Measured) (95-100) % Rich Test A-a Gradient a/A Ratio Hemoglobin Carboxyhemoglobin (0.0-6.9) % THgb Methemoglobin (1.4-1.5) % Temperature C POC O2 Flow Rate % Sodium 140 (136-145) mEq/L Potassium 3.8 (3.5-5.1) mEq/L Chloride 104 (98-107) mEq/L Carbon Dioxide 28.8 (21-32) mEq/L Anion Gap 10.5 (5-15) MEQ/L BUN 5 L (9-20) mg/dL Creatinine 0.61 (0.55-1.30) mg/dl Estimated GFR > 60 ML/MIN Glucose 167 H (70-110) MG/DL Calcium 8.8 (8.5-10.1) mg/dL Total Bilirubin 0.40 (0.2-1.0) mg/dL AST 19 (15-37) U/L ALT 18 (12-78) U/L Alkaline Phosphatase 105 (46-116) U/L Troponin I (0.000-0.056) ng/ml Serum Total Protein 6.4 (6.4-8.2) gm/dL Albumin 3.4 (3.4-5.0) g/dL <AMBERLY MOORE - Last Filed: 09/15/17 19:10> - Progress Progress: improved Air Movement: good <DILAN LAZARO - Last Filed: 09/15/17 20:21> - Progress Progress Note: 09/15/17 19:09 Patient's case was discussed with Dr. Lazaro, he will be assuming care of this patient secondary to shift change (AMBERLY MOORE) 09/15/17 20:15 The ABG shows a normal pH, pCO2 of 52 and a pO2 over 100, while on 100% NRB. Pt was taken off O2 and the O2 sat dropped to 91% on RA. The CXR does not show any acute findings. The patient feels better after receiving steroids and 2 breathing treatments. Pt has EKG changes including T wave inversions in the lateral leads but the troponin is negative. Pt has been admitted to Dr Emmanuel for chest pain and COPD. (DILAN LAZARO) <AMBERLY MOORE - Last Filed: 09/15/17 19:10> - Departure Time of Disposition: 20:18 Departure Disposition: In-patient Admission Critical Care Time: Yes Critical Care Time(excluding separately billable procedures): 75-104 minutes <DILAN LAZARO - Last Filed: 09/15/17 20:21> - Departure Clinical Impression: COPD with acute exacerbation Chest pain Qualifiers: Chest pain type: unspecified Qualified Code(s): R07.9 - Chest pain, unspecified Condition: Fair Referrals: JC FISHER [Primary Care Provider] - Instructions: Chronic Obstructive Pulmonary Disease
[2017-09-15 18:48] LABS: BASOPHIL % 0.2 % (0.0-0.4); Basophil (Absolute #) 0.02 (0-0.4); Eosinophil % 0.5 % (0.00-5.0); Eosinophil (Absolute #) 0.05 (0-0.5); Granulocytes % 81.3 % (36.0-66.0); Hematocrit 38.2 % (35-47); Hemoglobin 12.3 gm/dl (12.0-16.0); Lymphocyte (Absolute #) 0.79 (1.0-4.6); Lymphocytes % 7.6 % (24.0-44.0); Mean Corpuscular Hemoglobin 30.9 pg (26-32); Mean Corpuscular Hgb Concent. 32.2 g/dl (32-36); Mean Platelet Volume 9.7 fl (6-9.5); Monocyte (Absolute #) 1.08 (0.0-1.3); Monocytes % 10.4 % (0.0-12.0); Platelet Count 302 K/mm3 (150-450); Red Blood Count 3.98 M/mm3 (4.1-5.4); White Blood Count 10.3 K/mm3 (4.0-10.5)
[2017-09-15] MEDS ORDERED: Sodium Chloride 0.9% 1000 ML 1,000 ML ONE (19:09)
[2017-09-15 19:32] LABS: A-aADO2 465; ABG HEMOGLOBIN 12.7; ABG POTASSIUM 3.8 (3.5-5.1); ARTERIAL BLD GAS O2 SATURATION 98.7 % (95-100); ARTERIAL BLOOD GAS BASE EXCESS 2.9 (-2.0-2.0); ARTERIAL BLOOD GAS FIO2 100 %; ARTERIAL BLOOD GAS PCO2 52 mmHg (35-45); ARTERIAL BLOOD GAS PO2 183 mmHg (75-100); ARTERIAL BLOOD GAS pH 7.36 (7.35-7.45); CARBOXYHEMOGLOBIN 2.4 % THgb (0.0-6.9); HCO3- 29.4 (22-28); HGB O2 SAT 95.2 g/dF (94-100); paO2 pAO1 0.28
[2017-09-15 19:35] LABS: ALBUMIN 3.4 g/dL (3.4-5.0); ALKALINE PHOSPHATASE 105 U/L (46-116); ANION GAP 10.5 MEQ/L (5-15); BLOOD UREA NITROGEN 5 mg/dL (9-20); CHLORIDE 104 mEq/L (98-107); Calcium 8.8 mg/dL (8.5-10.1); Carbon Dioxide 28.8 mEq/L (21-32); Creatinine 1 0.61 mg/dl (0.55-1.30); EST GLOMERULAR FILTRATION RATE > 60 ML/MIN; Glucose 167 MG/DL (70-110); Potassium 3.8 mEq/L (3.5-5.1); SGOT/AST 19 U/L (15-37); SGPT/ALT 18 U/L (12-78); SODIUM 140 mEq/L (136-145); Total Protein 6.4 gm/dL (6.4-8.2)
[2017-09-15] MEDS ORDERED: Zithromax 500 MG/ 250 ML NaCl Premix 500 MG/250 ML IVPB IV ONE ×2 (19:57→20:03)
[2017-09-15] MEDS ORDERED: Ativan 1 MG PO PRN (22:21)
[2017-09-15] MEDS ORDERED: Tegretol 200 MG PO SCH (23:00)
[2017-09-15] MEDS ORDERED: zyPREXA 5MG TABLET PO SCH (23:00)
[2017-09-15] MEDS ORDERED: DUONEB 0.5-3 MG/3 ml Neb IH SCH (23:00)
[2017-09-15] MEDS ORDERED: Nitrostat 0.4 MG Tablet SL PRN (23:00)
[2017-09-15] MEDS ORDERED: Lopressor 25MG Tab PO SCH (23:00)
[2017-09-15] MEDS ORDERED: REMERON 30 MG PO SCH (23:00)
[2017-09-15] MEDS ORDERED: Zanaflex 4 MG PO PRN (23:02)
[2017-09-15] MEDS ORDERED: Tylenol #3 Tablet PO PRN (23:05)
[2017-09-15] MEDS ORDERED: DESYREL 50 MG ONE (23:16)
[2017-09-15] MEDS ORDERED: Lopressor 25MG Tab ONE (23:17)
[2017-09-15] MEDS ORDERED: Ativan 1 MG ONE (23:17)
[2017-09-15] MEDS ORDERED: zyPREXA 5MG TABLET ONE (23:17)
[2017-09-15] MEDS ORDERED: Tylenol #3 Tablet ONE (23:17)
[2017-09-15] MEDS ORDERED: Zanaflex 4 MG ONE (23:18)
[2017-09-15] MEDS ORDERED: Zocor 10MG ONE (23:18)
[2017-09-16] MEDS ORDERED: solu-MEDROL 125 MG IV SCH
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
[2017-09-16 00:20] VITALS: BP 125/77; PULSE 86; O2SAT 95
[2017-09-16] MEDS ORDERED: solu-MEDROL 125 MG ONE (00:20)
[2017-09-16] MEDS ORDERED: Ativan 2 MG/1 ML VIAL IV ONE (00:32)
[2017-09-16] MEDS ORDERED: Ativan 2 MG/1 ML VIAL ONE (00:58)
[2017-09-16 06:08] LABS: ABG SITE RIGHT RADIAL; ALLEN TEST OK? YES
--- NOTE | 2017-09-16 09:04 | XRAY ---
Indication: Short of breath. Comparison: August 17, 2017. Portable chest unchanged again demonstrating COPD with extensive bullous emphysema, scattered fibrosis/scarring, and right lung post surgical changes. Heart and mediastinal structures within normal limits. No new/acute findings.
[2017-09-16] MEDS ORDERED: Zithromax 500 MG/ 250 ML NaCl Premix 500 MG/250 ML IVPB IV SCH (10:00)
[2017-09-16] MEDS ORDERED: DESYREL 50 MG PO SCH (22:00)
[2017-09-16] MEDS ORDERED: Zocor 10MG PO SCH (23:00)
== END 2017-09-16 01:30 | disposition short-term general hospital (02) ==
LOC: ED 18:12 → INTOOBSV 21:14 → MED SURG 21:14
PROVIDERS: ADMIT Family Medicine; ATTEND Family Medicine
DX: I21.4 Non-ST elevation (NSTEMI) myocardial infarction (principal); J44.1 Chronic obstructive pulmonary disease with (acute) exacerbation; F41.8 Other specified anxiety disorders; G40.909 Epilepsy, unspecified, not intractable, without status epilepticus; I10 Essential (primary) hypertension; M19.90 Unspecified osteoarthritis, unspecified site; M81.0 Age-related osteoporosis without current pathological fracture; Z72.0 Tobacco use; Z79.899 Other long term (current) drug therapy
CPT/HCPCS: 36415; 36600; 71045; 80053; 82375; 82803; 84484; 85025; 85379; 93005; 93041; 94640; 94760; 96360; 96361; 96365; 99285; G0378; J0456; J2060; J2930; A9270-GY

== ENCOUNTER 2018-01-18 16:46 | Inpatient (IN) | payer MEDICAID, OTHER ==
[2018-01-18 16:56] LABS: A-aADO2 187; ABG HEMOGLOBIN 13.8; ABG POTASSIUM 3.4 (3.5-5.1); ARTERIAL BLD GAS O2 SATURATION 88.2 % (95-100); ARTERIAL BLOOD GAS BASE EXCESS 3.1 (-2.0-2.0); ARTERIAL BLOOD GAS FIO2 40 %; ARTERIAL BLOOD GAS PCO2 38 mmHg (35-45); ARTERIAL BLOOD GAS PO2 51 mmHg (75-100); ARTERIAL BLOOD GAS pH 7.46 (7.35-7.45); CARBOXYHEMOGLOBIN 1.6 % THgb (0.0-6.9); HGB O2 SAT 86.9 g/dF (94-100); paO2 pAO1 0.21
[2018-01-18 16:57] LABS: ABG SITE RIGHT BRACHIAL
[2018-01-18] MEDS ORDERED: DUONEB 0.5-3 MG/3 ml Neb IH ONE ×2 (17:15→17:16)
[2018-01-18] MEDS ORDERED: solu-MEDROL 125 MG IV ONE (17:15)
[2018-01-18] MEDS ORDERED: Sodium Chloride 0.9% 1000 ML 1,000 ML IV STA (17:15)
--- NOTE | 2018-01-18 17:20 | ERPHSYRPT ---
- History of Present Illness Time Seen by Provider: 01/18/18 17:12 Source: patient Exam Limitations: no limitations Patient Subjective Stated Complaint: SOB x4 days, hx of copd Triage Nursing Assessment: Pt presents to the ED with complaints of sob x4 days. Pt states hx of copd. Pt denies pain other than with cough. Pt denies other complaints at this time, pt has increased work of breathing on arrival but decreased work of breathing when O2 turned from 4L [place] to 5L [place]. Physician History: 52-year-old white female with history of COPD arrives with complaints of shortness of breath cough nonproductive symptoms for 4 days. Patient states she has pain only with coughing in her chest she has no nausea no vomiting. Patient says she feels like she might of had increased temperature at home but did not check it. Patient is a smoker and continues to smoke. Past medical history includes migraines, seizures, COPD, asthma, brain aneurysm , high blood pressure, cervical cancer, arthritis, osteoporosis, anxiety, depression, DVT in the past Past surgical history includes lobectomy, cardiac catheter, hernia repair, hysterectomy, appendectomy, brain aneurysm clipped, right [id number] amputation, and carpal tunnel Social history positive for tobacco use Timing/Duration: day(s) (4 days) Activities at Onset: none Severity of Dyspnea-Max: moderate Severity of Dyspnea-Current: moderate Possible Cause: occasional episodes Modifying Factors: Improves With: albuterol nebulizer (patient with breathing treatment sev) Associated Symptoms: constant, cough, wheezing, No intermittent, No anxiety, No chest pain/discomfort, No edema, No fever, No insomnia, No loss of appetite, No lightheadedness, No weakness, No ankle swelling, No chills, No hemoptysis, No calf pain, No dizziness, No heaviness, No heart racing, No lightheadedness, No leg swelling, No muscle spasms feet, No muscle spasms hands, No painful breathing, No productive cough, No sweating, No tightness, No tingling face International travel in last 2 weeks: No Allergies/Adverse Reactions: aspirin Allergy (Verified 09/15/17 18:30) Home Medications: Albuterol Sulfate [Ventolin Hfa] 2 puff IH QID PRN PRN 10/13/16 [History] Trazodone HCl 50 mg [Desyrel 50 mg] 100 mg PO QHS 10/13/16 [History] Tizanidine HCl 4 mg [Zanaflex 4 MG] 2 mg PO QID 06/06/17 [History] Alendronate Sodium 70 mg PO WEEKLY 06/30/17 [History] Cholecalciferol (Vitamin D3) [Vitamin D3] 50,000 unit PO WEEKLY 06/30/17 [ History] Lisinopril 10 mg [Zestril 10 MG] 10 mg PO DAILY 06/30/17 [History] Mirtazapine 30 mg PO HS 06/30/17 [History] Budesonide/Formoterol Fumarate [Symbicort 160-4.5 Mcg Inhaler] 2 puff IH BID [History] Buprenorphine 10 mg TOP WEEKLY 08/17/17 [History] Carbamazepine [Carbamazepine ER] 200 mg PO BID 08/17/17 [History] Olanzapine 10 mg PO QHS 08/17/17 [History] Tiotropium [place] Inhaler [Spiriva 18 Mcg/Cap Inhaler] 1 cap IH DAILY [History] Atorvastatin Calcium 10 mg PO HS 09/15/17 [History] Famotidine [Famotidine] 40 mg PO DAILY 09/15/17 [History] Ipratropium/Albuterol Sulfate [Iprat-Albut 0.5-3(2.5) mg/3 ml] 3 ml IH Q4H PRN PRN 09/15/17 [History] Metoprolol Tartrate 25 mg [Lopressor 25MG Tab] 12.5 mg BID 09/15/17 [ History] Nitroglycerin 0.4 mg Tablet [Nitrostat 0.4 MG Tablet] 0.4 mg SL Q5MIN PRN MR X 3 PRN 09/15/17 [History] Hx Tetanus, Diphtheria Vaccination/Date Given: Yes Hx Influenza Vaccination/Date Given: Yes Hx Pneumococcal Vaccination/Date Given: Yes Immunizations Up to Date: Yes - Review of Systems Constitutional: Fever, No Chills, No Fatigue, No Lethargy, No Malaise, No Night Sweats, No Weakness, No Weight Loss Eyes: No Symptoms Ears, Nose, & Throat: No Symptoms Respiratory: Cough, Dyspnea, Dyspnea on Exertion (LOTT), Wheezing, No Cyanosis Cardiac: No Chest Pain, No Edema, No Syncope Abdominal/Gastrointestinal: No Abdominal Pain, No Nausea, No Vomiting, No Diarrhea Genitourinary Symptoms: No Dysuria Musculoskeletal: No Back Pain, No Neck Pain Skin: No Rash Neurological: No Dizziness, No Focal Weakness, No Sensory Changes Psychological: No Symptoms Endocrine: No Symptoms All Other Systems: Reviewed and Negative - Past Medical History Pertinent Past Medical History: Yes Neurological History: Migraines, Seizures, Other ENT History: No Pertinent History Cardiac History: Aneurysm, Hypertension, Other Respiratory History: COPD, Emphysema Endocrine Medical History: No Pertinent History Musculoskeletal History: Arthritis, Osteoporosis, Other GI Medical History: No Pertinent History History: No Pertinent History Psycho-Social History: Anxiety, Depression Female Reproductive Disorders: Cervical Cancer Other Medical History: DVT while - Past Surgical History Past Surgical History: Yes Neuro Surgical History: No Pertinent History Cardiac: Cardiac Catheterization Respiratory: Lobectomy Gastrointestinal: Hernia Repair Musculoskeletal: Amputation, Other Female Surgical History: Hysterectomy Other Surgical History: 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 carpel tunnel - Social History Smoking Status: Current every day smoker How long have you smoked: 45 years Exposure to second hand smoke: Yes Drug Use: none Patient Lives Alone: No Significant Family History: no pertinent family hx - Female History Hx Now: No - Nursing Vital Signs Nursing Vital Signs: Initial Vital Signs Temperature 98.3 F 01/18/18 16:52 Pulse Rate 83 01/18/18 16:52 Respiratory Rate 19 01/18/18 16:52 Blood Pressure 166/99 01/18/18 16:52 O2 Sat by Pulse Oximetry 96 01/18/18 16:52 Pain Scale Pain Intensity 0 - Physical Exam General Appearance: moderate distress Eye Exam: PERRL/EOMI Ears, Nose, Throat Exam: hearing grossly normal, normal ENT inspection, normal pharynx, No abnormal TM (R), No abnormal TM (L) Neck Exam: normal inspection, supple Respiratory Exam: diminished breath sounds Cardiovascular/Chest Exam: normal heart sounds, regular rate/rhythm Abdominal/Gastrointestinal Exam: soft, No tenderness, No distention, No mass Extremity Exam: non-tender, normal range of motion, normal inspection, no calf tenderness, no pedal edema Neurologic Exam: alert, oriented x 3, cooperative, geothermal electrical engineer II-XII nml as tested, sensation nml, No motor deficits SpO2 Interpretation: normal (96%) SpO2: 96 Oxygen Delivery: Nasal Cannula - Course Nursing assessment & vital signs reviewed: Yes EKG Interpreted by Me: RATE (82 bpm), Sinus Rhythm, NORMAL AXIS, Other (EKG: Sinus rhythm, 82 bpm, normal axis, no acute ST or T wave changes noted) Ordered Tests: Active Orders 24 hr Category Date Time Status Wig Stylist STAT Care 01/18/18 17:16 Active EKG-ER Only STAT Care 01/18/18 17:15 Active IV Insertion STAT Care 01/18/18 17:15 Active Oxygen-ED Only NASAL CANNULA 2 lpm Care 01/18/18 17:15 Active CHEST 1 VIEW (PORTABLE) Stat Exams 01/18/18 17:15 Taken ABG [ARTERIAL BLOOD GASES] Stat Lab 01/18/18 16:45 Completed CBC W DIFF Stat Lab 01/18/18 18:35 Completed CMP Stat Lab 01/18/18 18:35 Completed D-DIMER QUANTITATION Stat Lab 01/18/18 18:35 Completed NT PRO BNP Stat Lab 01/18/18 18:35 Completed Respiratory Nebulizer STAT RT 01/18/18 17:16 Completed Respiratory Nebulizer STAT RT 01/18/18 18:47 Completed Medication Summary Discontinued Medications Generic Name Dose Route Start Last Admin Trade Name Freq PRN Reason Stop Dose Admin Hydrocodone Bitart/Acetaminophen 1 tab 01/18/18 19:44 [place] 5/325 Mg PO 01/18/18 19:45 STAT ONE Albuterol Sulfate Confirm 01/18/18 18:42 Proventil 2.5 Mg/3 Ml Neb Administered 01/18/18 18:43 Dose 2.5 mg IH .STK-MED ONE Albuterol Sulfate 2.5 mg 01/18/18 18:47 01/18/18 18:46 Proventil 2.5 Mg/3 Ml Neb IH 01/18/18 18:48 2.5 mg STAT ONE Administration Albuterol/Ipratropium 3 ml 01/18/18 17:15 01/18/18 17:15 Duoneb 0.5-3 Mg/3 Ml Neb IH 01/18/18 17:16 3 ml STAT ONE Administration Albuterol/Ipratropium Confirm 01/18/18 17:16 Duoneb 0.5-3 Mg/3 Ml Neb Administered 01/18/18 17:17 Dose 3 ml IH .STK-MED ONE Sodium Chloride 1,000 mls @ 999 mls/hr 01/18/18 17:15 01/18/18 17:45 Sodium Chloride 0.9% 1000 Ml IV 01/18/18 18:15 999 mls/hr .Q1H1M STA Administration Sodium Chloride Confirm 01/18/18 17:45 Sodium Chloride 0.9% 1000 Ml Administered 01/18/18 17:46 Dose 1,000 mls @ ud .ROUTE .STK-MED ONE Methylprednisolone Sodium Succinate 125 mg 01/18/18 17:15 01/18/18 17:45 Solu-Medrol 125 Mg IV 01/18/18 17:16 125 mg STAT ONE Administration Methylprednisolone Sodium Succinate Confirm 01/18/18 17:45 Solu-Medrol 125 Mg Administered 01/18/18 17:46 Dose 125 mg .ROUTE .STK-MED ONE Lab/Rad Data: Laboratory Result Diagrams 01/18/18 18:35 01/18/18 18:35 Laboratory Results 01/18/18 01/18/18 01/18/18 Range/Units 18:35 18:35 18:35 WBC 9.7 (4.0-10.5) K/mm3 RBC 3.80 L (4.1-5.4) M/mm3 Hgb 12.4 (12.0-16.0) gm/dl Hct 37.3 (35-47) % MCV 98.2 (78-100) fl MCH 32.6 H (26-32) pg MCHC 33.2 (32-36) g/dl RDW 13.0 (11.5-14.0) % Plt Count 321 (150-450) K/mm3 MPV 9.9 H (6-9.5) fl Gran % 66.1 H (36.0-66.0) % Eos # (Auto) 0.07 (0-0.5) Absolute Lymphs (auto) 1.76 (1.0-4.6) Absolute Monos (auto) 1.42 H (0.0-1.3) Lymphocytes % 18.2 L (24.0-44.0) % Monocytes % 14.7 H (0.0-12.0) % Eosinophils % 0.7 (0.00-5.0) % Basophils % 0.3 (0.0-0.4) % Absolute Granulocytes 6.39 (1.4-6.9) Basophils # 0.03 (0-0.4) D-Dimer < 215 L (215-500) ng/mL Puncture Site pCO2 (35-45) mmHg pO2 (75-100) mmHg Base Excess (-2.0-2.0) O2 Saturation (94-100) g/dF ABG pH (7.35-7.45) ABG HCO3 (22-28) ABG O2 Sat (Measured) (95-100) % Rich Test A-a Gradient a/A Ratio Hemoglobin Carboxyhemoglobin (0.0-6.9) % THgb Methemoglobin (1.4-1.5) % Potassium 3.2 L (3.5-5.1) Temperature C POC O2 Flow Rate % Sodium 144 (137-145) mmol/L Chloride 109 H (98-107) mmol/L Carbon Dioxide 28 (22-30) mmol/L Anion Gap 10.3 (5-15) MEQ/L BUN 13 (7-17) mg/dL Creatinine 0.48 L (0.52-1.04) mg/dL Estimated GFR > 60.0 ML/MIN Glucose 116 H (74-106) mg/dL Calcium 8.4 (8.4-10.2) mg/dL Total Bilirubin 0.20 (0.2-1.3) mg/dL AST 21 (14-36) U/L ALT 16 (0-35) U/L Alkaline Phosphatase 124 (38-126) U/L NT-Pro-B Natriuret Pep 343 (0-900) pg/mL Serum Total Protein 5.9 L (6.3-8.2) g/dL Albumin 3.5 (3.5-5.0) g/dL 01/18/18 Range/Units 16:45 WBC (4.0-10.5) K/mm3 RBC (4.1-5.4) M/mm3 Hgb (12.0-16.0) gm/dl Hct (35-47) % MCV (78-100) fl MCH (26-32) pg MCHC (32-36) g/dl RDW (11.5-14.0) % Plt Count (150-450) K/mm3 MPV (6-9.5) fl Gran % (36.0-66.0) % Eos # (Auto) (0-0.5) Absolute Lymphs (auto) (1.0-4.6) Absolute Monos (auto) (0.0-1.3) Lymphocytes % (24.0-44.0) % Monocytes % (0.0-12.0) % Eosinophils % (0.00-5.0) % Basophils % (0.0-0.4) % Absolute Granulocytes (1.4-6.9) Basophils # (0-0.4) D-Dimer (215-500) ng/mL Puncture Site RIGHT BRACHIAL pCO2 38 (35-45) mmHg pO2 51 L (75-100) mmHg Base Excess 3.1 H (-2.0-2.0) O2 Saturation 86.9 L (94-100) g/dF ABG pH 7.46 H (7.35-7.45) ABG HCO3 27.0 (22-28) ABG O2 Sat (Measured) 88.2 L (95-100) % Rich Test NOT APPLICABLE A-a Gradient 187 a/A Ratio 0.21 Hemoglobin 13.8 Carboxyhemoglobin 1.6 (0.0-6.9) % THgb Methemoglobin 0.0 L (1.4-1.5) % Potassium 3.4 L (3.5-5.1) Temperature 37.0 C POC O2 Flow Rate 40 % Sodium (137-145) mmol/L Chloride (98-107) mmol/L Carbon Dioxide (22-30) mmol/L Anion Gap (5-15) MEQ/L BUN (7-17) mg/dL Creatinine (0.52-1.04) mg/dL Estimated GFR ML/MIN Glucose (74-106) mg/dL Calcium (8.4-10.2) mg/dL Total Bilirubin (0.2-1.3) mg/dL AST (14-36) U/L ALT (0-35) U/L Alkaline Phosphatase (38-126) U/L NT-Pro-B Natriuret Pep (0-900) pg/mL Serum Total Protein (6.3-8.2) g/dL Albumin (3.5-5.0) g/dL - Progress Progress: improved Air Movement: fair Progress Note: 01/18/18 19:28 Patient still with the periods of desaturation but improved feeling better. Chest x-ray no acute changes chemistry essentially normal potassium somewhat low at 3.2 troponin within normal limits d-dimer is normal CBC White blood cell 9.7 hemoglobin 12.4 hematocrit 37.3 . Patient's quality assurance inspector is Dr. Wyatt Garcia patient wants to stay here. Call has been placed to Dr. THOMAS Garcia 01/18/18 19:48 I discussed the patient's case with Dr. THOMAS Garcia he requested that I discussed the case with the service Dr. Dr. Merritt, he said he would be happy to consult on him. I discussed the case with Dr. Merritt will place patient on observation telemetry continue duo neb treatments oxygen as needed continue IV steroids and begin Rocephin and Zithromax. \ - Departure Time of Disposition: 19:49 Departure Disposition: Observation (COPD with exacerbation) Clinical Impression: COPD with acute exacerbation, Shortness of breath, Hypoxia Condition: Fair Critical Care Time: No Referrals: JC FISHER [Primary Care Provider] - Instructions: Chronic Obstructive Pulmonary Disease
[2018-01-18] MEDS ORDERED: solu-MEDROL 125 MG ONE (17:45)
[2018-01-18] MEDS ORDERED: Sodium Chloride 0.9% 1000 ML 1,000 ML ONE (17:45)
[2018-01-18 18:36] LABS: BASOPHIL % 0.3 % (0.0-0.4); Basophil (Absolute #) 0.03 (0-0.4); Eosinophil % 0.7 % (0.00-5.0); Eosinophil (Absolute #) 0.07 (0-0.5); Granulocyte Absolute (ANC) 6.39 (1.4-6.9); Granulocytes % 66.1 % (36.0-66.0); Hematocrit 37.3 % (35-47); Hemoglobin 12.4 gm/dl (12.0-16.0); Lymphocyte (Absolute #) 1.76 (1.0-4.6); Lymphocytes % 18.2 % (24.0-44.0); Mean Cell Volume 98.2 fl (78-100); Mean Corpuscular Hemoglobin 32.6 pg (26-32); Mean Corpuscular Hgb Concent. 33.2 g/dl (32-36); Mean Platelet Volume 9.9 fl (6-9.5); Monocyte (Absolute #) 1.42 (0.0-1.3); Monocytes % 14.7 % (0.0-12.0); Platelet Count 321 K/mm3 (150-450); White Blood Count 9.7 K/mm3 (4.0-10.5)
[2018-01-18] MEDS ORDERED: PROVENTIL 2.5 MG/3 ML NEB IH ONE ×2 (18:42→18:47)
[2018-01-18 19:05] LABS: ALBUMIN 3.5 g/dL (3.5-5.0); ALKALINE PHOSPHATASE 124 U/L (38-126); ANION GAP 10.3 MEQ/L (5-15); BLOOD UREA NITROGEN 13 mg/dL (7-17); CHLORIDE 109 mmol/L (98-107); Calcium 8.4 mg/dL (8.4-10.2); Carbon Dioxide 28 mmol/L (22-30); Creatinine 1 0.48 mg/dL (0.52-1.04); Glucose 116 mg/dL (74-106); Potassium 3.2 mmol/L (3.5-5.1); SGOT/AST 21 U/L (14-36); SGPT/ALT 16 U/L (0-35); SODIUM 144 mmol/L (137-145); Total Protein 5.9 g/dL (6.3-8.2)
[2018-01-18 19:13] LABS: NT PRO BNP 343 pg/mL (0-900)
[2018-01-18] MEDS ORDERED: NORCO 5/325 MG PO ONE (19:44)
[2018-01-18] MEDS ORDERED: ROCEPHIN 1 Gm-D5w 50 ml Bag** 1 G/50 ML IVPB IV STA (19:49)
[2018-01-18] MEDS ORDERED: NORCO 5/325 MG ONE (19:51)
[2018-01-18] MEDS ORDERED: Zofran 4 MG/2 ML VIAL IV PRN (20:36)
[2018-01-18] MEDS ORDERED: solu-MEDROL 125 MG IV SCH (20:36)
[2018-01-18] MEDS ORDERED: DUONEB 0.5-3 MG/3 ml Neb IH PRN (20:36)
[2018-01-18 20:47] LABS: INFLUENZA A NEGATIVE (NEGATIVE); INFLUENZA B NEGATIVE (NEGATIVE); RESPIRATORY SYNCTIAL VIRUS NEGATIVE (Negative)
[2018-01-18] MEDS: DUONEB 0.5-3 MG/3 ml Neb IH SCH (22:35)
[2018-01-18] MEDS: CLARITIN 10 MG PO SCH (23:35)
[2018-01-18] MEDS: zyPREXA 5MG TABLET PO SCH (23:36)
[2018-01-18] MEDS: ZOLOFT 50 MG TABLET PO SCH (23:36)
[2018-01-18] MEDS: Ativan 0.5 MG PO PRN (23:37)
[2018-01-18] MEDS: Zanaflex 4 MG PO PRN (23:37)
[2018-01-19] MEDS: solu-MEDROL 125 MG IV SCH ×5 (00:12→23:35)
[2018-01-19] MEDS: VOLTAREN 50 MG PO SCH ×3 (01:17→22:15)
[2018-01-19] MEDS: Tegretol 200 MG PO SCH ×3 (01:17→22:15)
[2018-01-19 05:55] LABS: BASOPHIL % 0.2 % (0.0-0.4); Basophil (Absolute #) 0.01 (0-0.4); Eosinophil (Absolute #) 0 (0-0.5); Granulocyte Absolute (ANC) 3.53 (1.4-6.9); Granulocytes % 78.8 % (36.0-66.0); Hematocrit 36.7 % (35-47); Hemoglobin 11.7 gm/dl (12.0-16.0); Lymphocyte (Absolute #) 0.72 (1.0-4.6); Lymphocytes % 16.1 % (24.0-44.0); Mean Cell Volume 98.9 fl (78-100); Mean Corpuscular Hemoglobin 31.5 pg (26-32); Mean Corpuscular Hgb Concent. 31.9 g/dl (32-36); Mean Platelet Volume 9.9 fl (6-9.5); Monocyte (Absolute #) 0.22 (0.0-1.3); Monocytes % 4.9 % (0.0-12.0); Platelet Count 289 K/mm3 (150-450); Red Blood Count 3.71 M/mm3 (4.1-5.4); Red Cell Distribution Width 13.1 % (11.5-14.0); White Blood Count 4.5 K/mm3 (4.0-10.5)
[2018-01-19] MEDS: DUONEB 0.5-3 MG/3 ml Neb IH SCH ×5 (06:05→19:43)
[2018-01-19 06:52] LABS: ALBUMIN 3.3 g/dL (3.5-5.0); ALKALINE PHOSPHATASE 112 U/L (38-126); ANION GAP 11.1 MEQ/L (5-15); BLOOD UREA NITROGEN 10 mg/dL (7-17); CHLORIDE 111 mmol/L (98-107); Calcium 8.3 mg/dL (8.4-10.2); Carbon Dioxide 24 mmol/L (22-30); Creatinine 1 0.41 mg/dL (0.52-1.04); Glucose 131 mg/dL (74-106); Potassium 4.6 mmol/L (3.5-5.1); SGOT/AST 29 U/L (14-36); SGPT/ALT 17 U/L (0-35); SODIUM 141 mmol/L (137-145); Total Protein 5.7 g/dL (6.3-8.2)
--- NOTE | 2018-01-19 08:52 | PCM.HP ---
History of Present Illness - Chief Complaint Chief Complaint: Shortness of breath, hypoxia, COPD Exacerbation History of Present Illness: is a 52 year old female patient of Dr Hauser who presented to the ER with 1 week history of cough, shortness of breath and feeling poorly. no fever, cough is nonproductive. She has a history of copd and is on chronic oxygen therapy she states 2.5-3L continuously but has been up to 5L at home for the last few days. no chest pain, no other complaints other than shortness of breath, wheezing and nonproductive cough. - Review of Systems Constitutional: No Fever, No Chills Respiratory: Cough, Short Of Breath, Wheezing Cardiac: No Chest Pain, No Edema, No Syncope Abdominal/Gastrointestinal: No Abdominal Pain, No Nausea, No Vomiting, No Diarrhea Skin: No Rash All Other Systems: Reviewed and Negative Medications & Allergies Home Medications: Home Medication List Albuterol Sulfate [Ventolin Hfa] 2 puff IH QID PRN PRN 10/13/16 [History Confirmed 01/18/18] Trazodone HCl 50 mg [Desyrel 50 mg] 100 mg PO QHS 10/13/16 [History Confirmed 01/18/18] Tizanidine HCl 4 mg [Zanaflex 4 MG] 2 mg PO QID PRN PRN 06/06/17 [History Confirmed 01/18/18] Alendronate Sodium 70 mg PO WEEKLY 06/30/17 [History Confirmed 01/18/18] Cholecalciferol (Vitamin D3) [Vitamin D3] 50,000 unit PO WEEKLY 06/30/17 [ History Confirmed 01/18/18] Mirtazapine 30 mg PO HS 06/30/17 [History Confirmed 01/18/18] Carbamazepine [Carbamazepine ER] 200 mg PO BID 08/17/17 [History Confirmed 01/18] Tiotropium [place] Inhaler [Spiriva 18 Mcg/Cap Inhaler] 1 cap IH DAILY [History Confirmed 01/18/18] Atorvastatin Calcium 10 mg PO DAILY 09/15/17 [History Confirmed 01/18/18] Famotidine [Famotidine] 40 mg PO DAILY 09/15/17 [History Confirmed 01/18/18] Ipratropium/Albuterol Sulfate [Iprat-Albut 0.5-3(2.5) mg/3 ml] 3 ml IH Q4H PRN PRN 09/15/17 [History Confirmed 01/18/18] Nitroglycerin 0.4 mg Tablet [Nitrostat 0.4 MG Tablet] 0.4 mg SL Q5MIN PRN MR X 3 PRN 09/15/17 [History Confirmed 01/18/18] Acetaminophen/Diphenhydramine [Tylenol Pm Ex-Strength Caplet] 2 each PO BID PRN PRN 01/18/18 [History Confirmed 01/18/18] Amoxicillin 500 mg Cap [Amoxil 500 mg] 500 mg PO TID 01/18/18 [History Confirmed 01/18/18] Budesonide/Formoterol Fumarate [Symbicort 80-4.5 Mcg Inhaler] 1 puff IH DAILY [History Confirmed 01/18/18] Ciprofloxacin HCl [Cipro] 250 mg PO Q12H 01/18/18 [History Confirmed 01/18/18] Clopidogrel Bisulfate [Clopidogrel] 75 mg PO DAILY 01/18/18 [History Confirmed 01/18/18] Diclofenac Sodium 75 mg PO BID 01/18/18 [History Confirmed 01/18/18] Fluticasone/Salmeterol [Advair 250-50 Diskus] 1 puff IH DAILY 01/18/18 [History Confirmed 01/18/18] Levocetirizine Dihydrochloride 5 mg PO HS 01/18/18 [History Confirmed 01/18/18] Lisinopril [Lisinopril] 5 mg PO DAILY 01/18/18 [History Confirmed 01/18/18] Lorazepam 0.5 mg [Ativan 0.5 MG] 0.5 mg PO BID PRN PRN 01/18/18 [History Confirmed 01/18/18] Metoprolol Succinate 50 mg [Toprol Xl 50 MG] 50 mg PO DAILY 01/18/18 [ History Confirmed 01/18/18] Nicotine [Nicotine Patch] 17 mg TOP DAILY 01/18/18 [History Confirmed 01/18/18] OLANZapine [Olanzapine] 20 mg PO HS 01/18/18 [History Confirmed 01/18/18] Prednisone 10 mg [Deltasone 10 mg] 10 mg PO UD 01/18/18 [History Confirmed 01/18/18] Sertraline HCl 50 mg [Zoloft 50 mg Tablet] 50 mg PO HS 01/18/18 [History Confirmed 01/18/18] Allergies/Adverse Reactions: Allergies Allergy/AdvReac Type Severity Reaction Status Date / Time aspirin Allergy Verified 09/15/17 18:30 - Past Medical History Past Medical History: Yes Neurological History: Migraines, Seizures, Other ENT History: No Pertinent History Cardiac History: Aneurysm, Hypertension, Other Respiratory History: COPD, Emphysema Endocrine Medical History: No Pertinent History Musculoskelatal History: Arthritis, Osteoporosis, Other GI Medical History: No Pertinent History History: No Pertinent History Pyscho-Social History: Anxiety, Depression Reproductive Disorders: Cervical Cancer Comment: DVT while - Female History Are you now?: No - Past Surgical History Past Surgical History: Yes Neuro Surgical History: No Pertinent History Cardiac History: Cardiac Catheterization Respiratory Surgery: Lobectomy GI Surgical History: Hernia Repair Musculskeletal Surgical Hx: Amputation, Other Female Surgical History: Hysterectomy, Section Other Surgical History: 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 carpel tunnel - Social History Smoking Status: Current every day smoker How long have you smoked: 45 years Exposure to second hand smoke: Yes Alcohol: None Drug Use: none Significant Family History: no pertinent family hx - Physical Exam Vital Signs: Vital Signs - 24 hr Temp Pulse Resp BP BP Pulse Ox 01/19/18 07:19 98.5 F 64 18 158/86 99 01/19/18 04:10 98.2 F 74 18 165/87 99 01/19/18 00:00 98.3 F 94 H 28 H 175/96 99 01/18/18 22:50 88 26 H 92 L 01/18/18 21:21 98.3 F 87 24 176/86 95 01/18/18 20:05 90 18 162/98 95 01/18/18 19:49 96 01/18/18 18:50 89 26 H 96 01/18/18 18:24 90 24 151/81 91 L 01/18/18 17:22 85 22 94 L 01/18/18 16:57 22 96 01/18/18 16:52 98.3 F 83 19 166/99 96 Oxygen-Last 24 hours O2 Percentage 4 Liters = 36% O2 Percentage 4 Liters = 36% O2 Percentage 4 Liters = 36% O2 Percentage 4 Liters = 36% O2 Percentage 4 Liters = 36% O2 Percentage 4 Liters = 36% O2 Percentage 4 Liters = 36% Oxygen Flowrate (L/min)-RT 4 General Appearance: no apparent distress, thin Neurologic Exam: alert, oriented x 3 Eye Exam: PERRL/EOMI, eyes nml inspection Respiratory Exam: diminished breath sounds, prolonged expirations, wheezing Cardiovascular Exam: regular rate/rhythm, normal heart sounds, normal peripheral pulses Gastrointestinal/Abdomen Exam: soft, normal bowel sounds, No tenderness, No mass Extremity Exam: normal inspection, normal range of motion, pelvis stable Skin Exam: normal color, warm, dry, No rash Results - Labs Lab/Micro Results: Lab Results-Last 24 Hours 01/19/18 01/19/18 Range/Units 05:20 05:20 WBC 4.5 (4.0-10.5) K/mm3 RBC 3.71 L (4.1-5.4) M/mm3 Hgb 11.7 L (12.0-16.0) gm/dl Hct 36.7 (35-47) % MCV 98.9 (78-100) fl MCH 31.5 (26-32) pg MCHC 31.9 L (32-36) g/dl RDW 13.1 (11.5-14.0) % Plt Count 289 (150-450) K/mm3 MPV 9.9 H (6-9.5) fl Gran % 78.8 H (36.0-66.0) % Eos # (Auto) 0 (0-0.5) Absolute Lymphs (auto) 0.72 L (1.0-4.6) Absolute Monos (auto) 0.22 (0.0-1.3) Lymphocytes % 16.1 L (24.0-44.0) % Monocytes % 4.9 (0.0-12.0) % Eosinophils % 0.0 (0.00-5.0) % Basophils % 0.2 (0.0-0.4) % Absolute Granulocytes 3.53 (1.4-6.9) Basophils # 0.01 (0-0.4) Sodium 141 (137-145) mmol/L Potassium 4.6 (3.5-5.1) mmol/L Chloride 111 H (98-107) mmol/L Carbon Dioxide 24 (22-30) mmol/L Anion Gap 11.1 (5-15) MEQ/L BUN 10 (7-17) mg/dL Creatinine 0.41 L (0.52-1.04) mg/dL Estimated GFR > 60.0 ML/MIN Glucose 131 H (74-106) mg/dL Calcium 8.3 L (8.4-10.2) mg/dL Total Bilirubin 0.20 (0.2-1.3) mg/dL AST 29 (14-36) U/L ALT 17 (0-35) U/L Alkaline Phosphatase 112 (38-126) U/L Serum Total Protein 5.7 L (6.3-8.2) g/dL Albumin 3.3 L (3.5-5.0) g/dL - Other Procedures and Tests Respiratory Therapy 01/18/18 23:00 Respiratory Nebulizer Q4H 01/19/18 07:00 Respiratory MDI BID Respiratory MDI UD Assessment/Plan (1) COPD with acute exacerbation Current Visit: Yes Status: Acute Assessment & Plan: continue rocephin/zithromax, nebs and IV steroids at this time. Code(s): J44.1 - CHRONIC OBSTRUCTIVE PULMONARY DISEASE W (ACUTE) EXACERBATION (2) Chronic hypoxemic respiratory failure Current Visit: Yes Status: Acute
[2018-01-19] MEDS: NICODERM CQ 14 MG TOP SCH (09:11)
[2018-01-19] MEDS: Zithromax 500 MG/ 250 ML NaCl Premix 500 MG/250 ML IVPB IV SCH (09:16)
--- NOTE | 2018-01-19 09:23 | XRAY ---
Exam: AP upright portable chest film from 01/18/2018. Comparison: AP upright portable chest film from 09/15/2017. Indication: Shortness of breath, cough. Findings: The heart size is normal. No vascular congestion or pleural effusion is seen. There is significant hyperinflation of the lungs consistent with COPD. Extensive bullous emphysema is noted within both upper lung [place] representing no change. I believe there are also some bullous changes along the lateral aspect of the right lower lung field representing no change. Extensive fine surgical suture material overlies the right upper and midlung field representing no change. Mild chronic tenting at the lateral aspect of the right hemidiaphragm is seen consistent with pleural-parenchymal scarring. The interstitial markings are slightly prominent at the right lung base. This may be accentuated from the extensive bullous emphysema. I see no definite airspace infiltrate. There is no pneumothorax. No acute osseous process is seen. There is minimal convexity of the visualized upper lumbar spine toward the right. Impression: 1. Advanced COPD with extensive bilateral bullous emphysema, predominantly within the upper half of each lung. This is unchanged. 2. Minimal accentuation of the bronchovascular lung markings at the right lung base is seen, which I believe likely reflects some compression changes due to the extensive surrounding bullous emphysema within the right lung field. A definite air space infiltrate is not seen. 3. There is again evidence of prior right thoracotomy.
[2018-01-19] MEDS ORDERED: NORCO 5/325 MG PO PRN (09:29)
[2018-01-19] MEDS ORDERED: NON-FORMULARY ITEM (Atorvastatin Calcium [Atorvastatin Calcium] 10 MG) PO SCH (10:00)
[2018-01-19] MEDS ORDERED: Zestril 5 MG PO SCH (10:00)
[2018-01-19] MEDS ORDERED: ADVAIR 250-50 DISKUS 14 DOSE IH SCH (10:00)
[2018-01-19] MEDS: Spiriva 18 Mcg/Cap Inhaler IH SCH (10:23)
[2018-01-19] MEDS: Advair Hfa 230/21 Mcg COMMON CANISTER IH SCH ×2 (10:23→18:49)
[2018-01-19] MEDS: Sodium Chloride 0.9% 1000 ML 1,000 ML IV SCH ×4 (10:40→20:40)
[2018-01-19] MEDS: Toprol Xl 50 MG PO SCH (10:53)
[2018-01-19] MEDS: Pepcid 20 MG PO SCH (10:53)
[2018-01-19] MEDS: PLAVIX 75 MG Tablet PO SCH (10:53)
[2018-01-19] MEDS: ENOXAPARIN SODIUM SQ SCH (11:31)
--- NOTE | 2018-01-19 13:43 | CONS ---
CONSULT DATE: 01/19/2018 REASON FOR CONSULT: Chronic obstructive pulmonary disease exacerbation. HISTORY: Miss Min is a 52 year-old woman with history of chronic obstructive pulmonary disease, well known to me, who has been sick for about two weeks. The patient was called in to have outpatient antibiotic and steroid therapy and although initially she felt better her said thinks things started getting progressively worse leading to an emergency room visit. Usually she is on 3 to 4 liters oxygen at home and was requiring 6 liters. Despite her saturation was still marginal. After work up in the emergency room the patient has now been hospitalized. She does report feeling better with antibiotics and steroids administered intravenously. She has cough which has been largely nonproductive. The patient reports headache and pleuritic-type pain from coughing. PAST MEDICAL HISTORY: Positive for history of chronic obstructive pulmonary disease, chronic hypoxic respiratory failure, history of seizures, glaucoma, hypertension, brain aneurysm and ovarian cancer. PAST SURGICAL HISTORY: She has had left lung resection, hernia surgery, aneurysm of brain clipping, amputation of right leg and hysterectomy. PERSONAL AND SOCIAL HISTORY: The patient still smokes a half pack to pack of cigarettes per day, lives with family. MEDICATIONS: Home and current medications are reviewed. ALLERGIES: NKDA. PHYSICAL EXAMINATION: This is a middle aged woman who appears mildly tachypneic at rest. Vital signs are noted. HEENT: Normocephalic. Pupils are reactive. Oral exam unremarkable. CVS: First and second heart sounds are normal, regular, rhythmic. RESPIRATORY: Shows diminished breath sounds, scattered rhonchi are heard. ABDOMEN: Soft. EXTREMITIES: No edema is noted. LABORATORY DATA AND TESTS: Sodium 141, potassium 4.6, chloride 111, bicarb 24, glucose 131, BUN 10, creatinine 0.4. White blood cell count 4.5, hemoglobin 11.7, hematocrit 37, PLT 289,000. Influenza test was negative. ABG noted. D-dimer was less than 215. Chest x-ray showed advanced chronic obstructive pulmonary disease, increased bronchovascular markings. ASSESSMENT: This is a 52 year old woman admitted with: 1) Chronic obstructive pulmonary disease with acute exacerbation. 2) Acute bronchitis. 3) Hypoxia. 4) Pleuritic chest pain from chronic cough. 5) Fragility. 6) Nicotine addiction. RECOMMENDATIONS: I agree with present treatment, continue IV antibiotics, bronchodilator, steroids, deep venous thrombosis and GI prophylaxis. Will continue outpatient follow up upon discharge. Thank you for allowing me to participate in the care of this patient.
[2018-01-19] MEDS ORDERED: Zestril 10 MG PO ONE (16:26)
[2018-01-19] MEDS: Zanaflex 4 MG PO PRN (16:52)
[2018-01-19] MEDS: APRESOLINE 20 MG/ML INJ IV PRN (18:31)
[2018-01-19] MEDS: Ativan 0.5 MG PO PRN (19:21)
[2018-01-19] MEDS ORDERED: NON-FORMULARY ITEM (Levocetirizine Dihydrochloride [Levocetirizine Dihydrochloride] 5 MG) PO SCH (22:00)
[2018-01-19] MEDS: ROCEPHIN 1 Gm-D5w 50 ml Bag** 1 G/50 ML IVPB IV SCH (22:08)
[2018-01-19] MEDS: CLARITIN 10 MG PO SCH (22:15)
[2018-01-19] MEDS: REMERON 30 MG PO SCH (22:15)
[2018-01-19] MEDS: zyPREXA 5MG TABLET PO SCH (22:17)
[2018-01-19] MEDS: Zocor 10MG PO SCH (22:17)
[2018-01-19] MEDS: ZOLOFT 50 MG TABLET PO SCH (22:17)
[2018-01-19] MEDS: NORCO 5/325 MG PO PRN (22:29)
[2018-01-20] MEDS: DUONEB 0.5-3 MG/3 ml Neb IH SCH ×7 (02:56→23:03)
[2018-01-20 05:57] LABS: BASOPHIL % 0.2 % (0.0-0.4); Basophil (Absolute #) 0.01 (0-0.4); Eosinophil (Absolute #) 0 (0-0.5); Granulocyte Absolute (ANC) 4.64 (1.4-6.9); Granulocytes % 76.5 % (36.0-66.0); Hematocrit 36.7 % (35-47); Hemoglobin 11.9 gm/dl (12.0-16.0); Lymphocyte (Absolute #) 0.89 (1.0-4.6); Lymphocytes % 14.7 % (24.0-44.0); Mean Cell Volume 99.5 fl (78-100); Mean Corpuscular Hemoglobin 32.2 pg (26-32); Mean Corpuscular Hgb Concent. 32.4 g/dl (32-36); Mean Platelet Volume 9.9 fl (6-9.5); Monocyte (Absolute #) 0.52 (0.0-1.3); Monocytes % 8.6 % (0.0-12.0); Platelet Count 312 K/mm3 (150-450); Red Blood Count 3.69 M/mm3 (4.1-5.4); Red Cell Distribution Width 13.1 % (11.5-14.0); White Blood Count 6.1 K/mm3 (4.0-10.5)
[2018-01-20 06:12] LABS: ANION GAP 11.2 MEQ/L (5-15); BLOOD UREA NITROGEN 7 mg/dL (7-17); CHLORIDE 110 mmol/L (98-107); Calcium 8.5 mg/dL (8.4-10.2); Carbon Dioxide 27 mmol/L (22-30); Creatinine 1 0.38 mg/dL (0.52-1.04); Glucose 137 mg/dL (74-106); Potassium 3.8 mmol/L (3.5-5.1); SODIUM 144 mmol/L (137-145)
[2018-01-20] MEDS: solu-MEDROL 125 MG IV SCH ×4 (06:23→23:23)
[2018-01-20] MEDS: Sodium Chloride 0.9% 1000 ML 1,000 ML IV SCH ×2 (06:23→18:33)
[2018-01-20] MEDS: Advair Hfa 230/21 Mcg COMMON CANISTER IH SCH ×2 (06:47→20:12)
[2018-01-20] MEDS: Spiriva 18 Mcg/Cap Inhaler IH SCH (06:47)
[2018-01-20] MEDS ORDERED: APRESOLINE 20 MG/ML INJ ONE (07:03)
[2018-01-20] MEDS: APRESOLINE 20 MG/ML INJ IV PRN ×2 (07:11→20:07)
[2018-01-20] MEDS: Ativan 0.5 MG PO PRN ×2 (07:11→21:36)
[2018-01-20] MEDS: NORCO 5/325 MG PO PRN ×2 (08:00→17:20)
--- NOTE | 2018-01-20 08:30 | PCM.NOTE ---
Date and Time: 01/20/18825 Subjective Assessment: doing well, seems to have some improvement in her breathing. bp was very high yesterday, history of aneurysm clipped in the past. Objective Exam General Appearance: no apparent distress, alert Skin Exam: normal color, warm, dry Cardiovascular Exam: regular rate/rhythm, normal heart sounds Gastrointestinal/Abdomen Exam: soft, No tenderness, No mass Extremity Exam: normal inspection, normal range of motion OBJECTIVE DATA Vital Signs: Vital Signs - 24 hr Temp Pulse Resp BP BP Pulse Ox 01/20/18 08:01 103 H 159/91 01/20/18 07:50 98 F 92 H 25 H 189/115 100 01/20/18 06:48 92 H 20 100 01/20/18 04:00 98.2 F 97 H 28 H 166/88 176/86 97 01/20/18 03:00 86 23 97 01/20/18 00:05 80 20 96 01/19/18 20:00 98.2 F 83 22 160/86 96 01/19/18 18:52 83 20 98 01/19/18 18:17 84 179/95 01/19/18 16:13 72 181/99 01/19/18 15:55 97.9 F 79 20 187/101 98 01/19/18 15:00 94 H 20 94 L 01/19/18 12:00 98.0 F 92 H 20 175/79 96 Oxygen-Last 24 hours O2 Percentage 5 Liters = 40% O2 Percentage 4 Liters = 36% O2 Percentage 4 Liters = 36% O2 Percentage 4 Liters = 36% O2 Percentage 4 Liters = 36% O2 Percentage 4 Liters = 36% Pain Assessment - Last Documented Pain Intensity 8 Pain Scale Used 0-10 Pain Scale Intake and Output: Intake & Output 01/17/18 01/18/18 01/19/18 01/20/18 11:59 11:59 11:59 11:59 Intake Total 1623 3696 Output Total 100 4000 Balance 1523 -304 Weight 35.2 kg Lab Results: Lab Results-Last 24 Hours 01/20/18 01/20/18 Range/Units 05:40 05:40 WBC 6.1 (4.0-10.5) K/mm3 RBC 3.69 L (4.1-5.4) M/mm3 Hgb 11.9 L (12.0-16.0) gm/dl Hct 36.7 (35-47) % MCV 99.5 (78-100) fl MCH 32.2 H (26-32) pg MCHC 32.4 (32-36) g/dl RDW 13.1 (11.5-14.0) % Plt Count 312 (150-450) K/mm3 MPV 9.9 H (6-9.5) fl Gran % 76.5 H (36.0-66.0) % Eos # (Auto) 0 (0-0.5) Absolute Lymphs (auto) 0.89 L (1.0-4.6) Absolute Monos (auto) 0.52 (0.0-1.3) Lymphocytes % 14.7 L (24.0-44.0) % Monocytes % 8.6 (0.0-12.0) % Eosinophils % 0.0 (0.00-5.0) % Basophils % 0.2 (0.0-0.4) % Absolute Granulocytes 4.64 (1.4-6.9) Basophils # 0.01 (0-0.4) Sodium 144 (137-145) mmol/L Potassium 3.8 (3.5-5.1) mmol/L Chloride 110 H (98-107) mmol/L Carbon Dioxide 27 (22-30) mmol/L Anion Gap 11.2 (5-15) MEQ/L BUN 7 (7-17) mg/dL Creatinine 0.38 L (0.52-1.04) mg/dL Estimated GFR > 60.0 ML/MIN Glucose 137 H (74-106) mg/dL Calcium 8.5 (8.4-10.2) mg/dL Assessment/Plan (1) COPD with acute exacerbation Current Visit: Yes Status: Acute Assessment & Plan: continue rocephin/zithromax, solu medrol and nebulizer treatments. Code(s): J44.1 - CHRONIC OBSTRUCTIVE PULMONARY DISEASE W (ACUTE) EXACERBATION (2) Chronic hypoxemic respiratory failure Current Visit: Yes Status: Acute
[2018-01-20] MEDS: Zithromax 500 MG/ 250 ML NaCl Premix 500 MG/250 ML IVPB IV SCH (10:59)
[2018-01-20] MEDS: NICODERM CQ 14 MG TOP SCH (11:03)
[2018-01-20] MEDS: ENOXAPARIN SODIUM SQ SCH (11:04)
[2018-01-20] MEDS: PLAVIX 75 MG Tablet PO SCH (11:04)
[2018-01-20] MEDS: Pepcid 20 MG PO SCH (11:04)
[2018-01-20] MEDS: Toprol Xl 50 MG PO SCH (11:05)
[2018-01-20] MEDS: Tegretol 200 MG PO SCH ×2 (11:05→21:22)
[2018-01-20] MEDS: VOLTAREN 50 MG PO SCH ×2 (11:06→21:22)
[2018-01-20] MEDS: Zestril 10 MG PO SCH ×2 (11:07→21:24)
[2018-01-20] MEDS: SUBLIMAZE 100 MCG/2 ML IV PRN (14:56)
[2018-01-20] MEDS: TYLENOL 325 MG PO PRN (20:27)
[2018-01-20] MEDS: REMERON 30 MG PO SCH (21:21)
[2018-01-20] MEDS: CLARITIN 10 MG PO SCH (21:21)
[2018-01-20] MEDS: ROCEPHIN 1 Gm-D5w 50 ml Bag** 1 G/50 ML IVPB IV SCH (21:21)
[2018-01-20] MEDS: ZOLOFT 50 MG TABLET PO SCH (21:24)
[2018-01-20] MEDS: Zocor 10MG PO SCH (21:24)
[2018-01-20] MEDS: zyPREXA 5MG TABLET PO SCH (21:25)
[2018-01-21] MEDS: DUONEB 0.5-3 MG/3 ml Neb IH SCH ×6 (03:20→23:09)
[2018-01-21] MEDS: Sodium Chloride 0.9% 1000 ML 1,000 ML IV SCH ×3 (03:34→23:57)
[2018-01-21] MEDS: solu-MEDROL 125 MG IV SCH ×4 (05:45→23:53)
[2018-01-21] MEDS: Spiriva 18 Mcg/Cap Inhaler IH SCH (06:58)
[2018-01-21] MEDS: Advair Hfa 230/21 Mcg COMMON CANISTER IH SCH ×2 (06:58→19:15)
[2018-01-21] MEDS: Ativan 0.5 MG PO PRN ×2 (07:04→21:00)
[2018-01-21] MEDS: Zithromax 500 MG/ 250 ML NaCl Premix 500 MG/250 ML IVPB IV SCH (08:56)
[2018-01-21] MEDS: PLAVIX 75 MG Tablet PO SCH (08:57)
[2018-01-21] MEDS: APRESOLINE 20 MG/ML INJ IV PRN ×2 (08:57→18:45)
[2018-01-21] MEDS: Toprol Xl 50 MG PO SCH (08:57)
[2018-01-21] MEDS: Zestril 10 MG PO SCH ×2 (08:57→20:59)
[2018-01-21] MEDS: Pepcid 20 MG PO SCH (08:57)
[2018-01-21] MEDS: ENOXAPARIN SODIUM SQ SCH (08:58)
[2018-01-21] MEDS: NICODERM CQ 14 MG TOP SCH (08:58)
[2018-01-21] MEDS: NORCO 5/325 MG PO PRN ×2 (09:10→16:57)
[2018-01-21] MEDS: VOLTAREN 50 MG PO SCH ×2 (09:13→21:02)
[2018-01-21] MEDS: Tegretol 200 MG PO SCH ×2 (09:13→21:01)
[2018-01-21] MEDS ORDERED: NORVASC 5 MG PO SCH ×2 (10:00→10:09)
--- NOTE | 2018-01-21 11:54 | PCM.NOTE ---
Date and Time: 01/21/18 1149 Subjective Assessment: Pt just not feeling well today. Her BP this morning was 176/109 and she did receive hydralazine - repeat was 162 systolic (she is getting her first dose of po amlodipine). c/o abd sore she thinks d/t coughing. - Review of Systems Constitutional: No Fever Respiratory: Cough Objective Exam General Appearance: no apparent distress, alert Neurologic Exam: oriented x 3, cooperative Skin Exam: normal color, warm, dry, No rash Ears, Nose, Throat Exam: moist mucous membranes Neck Exam: normal inspection Respiratory Exam: diminished breath sounds (fair air exchange), prolonged expirations, No crackles/rales, No rhonchi, No wheezing Cardiovascular Exam: regular rate/rhythm, normal heart sounds, No murmur Gastrointestinal/Abdomen Exam: soft, normal bowel sounds, tenderness (RUQ, mild) , No distention, No guarding, No rebound Extremity Exam: other (RLE s/p remote AKA), No pedal edema, No swelling OBJECTIVE DATA Vital Signs: Vital Signs - 24 hr Temp Pulse Resp BP Pulse Ox 01/21/18 10:38 82 22 98 01/21/18 07:39 97.5 F 104 H 24 179/109 90 L 01/21/18 07:00 96 H 24 92 L 01/21/18 04:00 98.2 F 86 22 136/79 96 01/21/18 03:20 86 22 96 01/20/18 23:58 98.5 F 89 22 141/80 98 01/20/18 23:03 89 22 98 01/20/18 20:45 152/78 01/20/18 20:00 98.0 F 78 23 172/84 93 L 01/20/18 19:57 83 24 96 01/20/18 16:00 98.6 F 95 H 24 150/92 95 01/20/18 15:00 74 20 98 01/20/18 12:00 98.2 F 90 24 139/96 99 Oxygen-Last 24 hours O2 Percentage 4 Liters = 36% O2 Percentage 4 Liters = 36% O2 Percentage 5 Liters = 40% O2 Percentage 5 Liters = 40% O2 Percentage 5 Liters = 40% O2 Percentage 5 Liters = 40% Pain Assessment - Last Documented Pain Intensity 0 Pain Scale Used 0-10 Pain Scale Intake and Output: Intake & Output 05/30/18 05/31/18 06/01/18 06/02/18 11:59 11:59 11:59 11:59 Intake Total 240 3756 4077 Output Total 0066 9230 Balance 240 -2040 377 Weight 38.5 kg 39.7 kg Multi-Disciplinary Progress Notes: Multi-Disciplinary Progress Notes 01/21/18 04:13 Respiratory Note by Camilo Montoya A CALL FROM NURSING STATING THAT PT GOT UP TO GO TO THE RESTROOM AND SATS DROPPED. PT REQUESTED TO BE TURNED BACK UP TO 5LPM. WILL ALERT DAY SHIFT. Initialized on 01/21/18 04:13 - END OF NOTE 01/20/18 15:32 Case Management Note by Anna Shetty REQUESTS REFERRAL FOR [facility] TO FOLLOW FOR ADD SUPPORT ON DISCHARGE. REPORTS THAT #1 CHOICE OF PROVIDER IS [facility]. BUT WILL USE WHOMEVER HER INSURANCE WILL PAY FOR. CALL TO [facility], SPOKE WITH JOSE. FAXED DEMOGRAPHICS AT THIS TIME. Initialized on 01/20/18 15:32 - END OF NOTE Assessment/Plan (1) COPD with acute exacerbation Current Visit: Yes Status: Acute Onset Date: ~01/18/18 Assessment & Plan: Continue rocephin, zithromax (day #3), and solumedrol (80mg IV q6h). May decrease steroid tomorrow if feeling better. D/c zithromax tomorrow. Code(s): J44.1 - CHRONIC OBSTRUCTIVE PULMONARY DISEASE W (ACUTE) EXACERBATION (2) HTN (hypertension) Current Visit: Yes Status: Acute Qualifiers: Hypertension type: essential hypertension Qualified Code(s): I10 - Essential (primary) hypertension Assessment & Plan: added 2.5mg norvasc; her lisinopril was recently increased but will give norvasc at least until th ebp start to decrease. Code(s): I10 - ESSENTIAL (PRIMARY) HYPERTENSION (3) Seizure disorder Current Visit: No Status: Chronic Code(s): G40.909 - EPILEPSY, UNSP, NOT INTRACTABLE, WITHOUT STATUS EPILEPTICUS (4) Chronic hypoxemic respiratory failure Current Visit: Yes Status: Chronic (5) Hx of aneurysm Current Visit: Yes Status: Acute Code(s): Z86.79 - PERSONAL HISTORY OF OTHER DISEASES OF THE CIRCULATORY SYSTEM
[2018-01-21] MEDS: TYLENOL 325 MG PO PRN (13:53)
[2018-01-21] MEDS: CLARITIN 10 MG PO SCH (20:59)
[2018-01-21] MEDS: zyPREXA 5MG TABLET PO SCH (20:59)
[2018-01-21] MEDS: ZOLOFT 50 MG TABLET PO SCH (20:59)
[2018-01-21] MEDS: Zocor 10MG PO SCH (20:59)
[2018-01-21] MEDS: REMERON 30 MG PO SCH (21:00)
[2018-01-21] MEDS: ROCEPHIN 1 Gm-D5w 50 ml Bag** 1 G/50 ML IVPB IV SCH (21:00)
[2018-01-22] MEDS: DUONEB 0.5-3 MG/3 ml Neb IH SCH ×6 (03:19→23:02)
[2018-01-22] MEDS: NORCO 5/325 MG PO PRN ×3 (03:23→22:24)
[2018-01-22] MEDS: APRESOLINE 20 MG/ML INJ IV PRN (03:26)
[2018-01-22] MEDS: solu-MEDROL 125 MG IV SCH ×4 (05:35→23:18)
[2018-01-22 05:59] LABS: Hematocrit 34.2 % (35-47); Mean Corpuscular Hgb Concent. 32.2 g/dl (32-36); Platelet Count 333 K/mm3 (150-450); Red Blood Count 3.42 M/mm3 (4.1-5.4); Red Cell Distribution Width 13.1 % (11.5-14.0); White Blood Count 5.9 K/mm3 (4.0-10.5)
[2018-01-22 06:25] LABS: Mean Corpuscular Hemoglobin 32.1 pg (26-32)
[2018-01-22 06:31] LABS: ANION GAP 9.3 MEQ/L (5-15); BLOOD UREA NITROGEN 9 mg/dL (7-17); CHLORIDE 106 mmol/L (98-107); Calcium 8.1 mg/dL (8.4-10.2); Carbon Dioxide 30 mmol/L (22-30); Creatinine 1 0.37 mg/dL (0.52-1.04); Glucose 114 mg/dL (74-106); Potassium 3.6 mmol/L (3.5-5.1); SODIUM 142 mmol/L (137-145)
[2018-01-22] MEDS: Advair Hfa 230/21 Mcg COMMON CANISTER IH SCH ×2 (08:12→19:01)
[2018-01-22] MEDS: Spiriva 18 Mcg/Cap Inhaler IH SCH (08:16)
[2018-01-22] MEDS: TYLENOL 325 MG PO PRN ×2 (08:26→16:27)
[2018-01-22] MEDS: Ativan 0.5 MG PO PRN ×2 (08:26→22:24)
[2018-01-22] MEDS: PLAVIX 75 MG Tablet PO SCH (09:11)
[2018-01-22] MEDS: NORVASC 5 MG PO SCH (09:11)
[2018-01-22] MEDS: Toprol Xl 50 MG PO SCH (09:11)
[2018-01-22] MEDS: NICODERM CQ 14 MG TOP SCH (09:11)
[2018-01-22] MEDS: Pepcid 20 MG PO SCH (09:11)
[2018-01-22] MEDS: Zestril 10 MG PO SCH ×2 (09:11→22:24)
[2018-01-22] MEDS: VOLTAREN 50 MG PO SCH ×2 (09:13→22:23)
[2018-01-22] MEDS: ENOXAPARIN SODIUM SQ SCH (09:15)
[2018-01-22] MEDS: Tegretol 200 MG PO SCH ×2 (09:15→22:24)
--- NOTE | 2018-01-22 10:25 | PCM.NOTE ---
Date and Time: 01/22/18 1021 Subjective Assessment: Pt still not feeling well, feels it's due to her breathing - still SOB. Hard to sleep at night. Not getting anything up when she coughs. Still had some elevated BP last night, to 188/102. - Review of Systems Constitutional: Weakness, No Fever Respiratory: Cough Objective Exam General Appearance: mild distress, anxiety, thin Neurologic Exam: alert, oriented x 3, cooperative Skin Exam: normal color, warm, dry, No rash Ears, Nose, Throat Exam: moist mucous membranes Neck Exam: normal inspection Respiratory Exam: lungs clear, diminished breath sounds, prolonged expirations, No crackles/rales, No rhonchi, No wheezing Cardiovascular Exam: regular rate/rhythm, normal heart sounds, No murmur Extremity Exam: No pedal edema, No swelling (on LLE; RLE s/p remote amputation) Back Exam: normal inspection, No rash OBJECTIVE DATA Vital Signs: Vital Signs - 24 hr Temp Pulse Resp BP Pulse Ox 01/22/18 08:13 22 L 104 H 01/22/18 08:00 97.9 F 96 H 18 188/102 98 01/22/18 04:00 97.9 F 82 24 164/95 98 01/22/18 03:19 82 24 98 01/22/18 00:00 98.1 F 83 21 141/83 98 01/21/18 23:10 83 24 98 01/21/18 19:26 98.1 F 100 H 24 138/92 97 01/21/18 19:22 102 H 26 H 93 L 01/21/18 18:47 94 H 198/109 01/21/18 16:37 99 H 26 H 93 L 01/21/18 16:00 98.4 F 95 H 23 178/92 94 L 01/21/18 14:07 97 H 24 94 L 01/21/18 12:00 98 F 92 H 18 144/76 93 L 01/21/18 10:38 82 22 98 Oxygen-Last 24 hours O2 Percentage 3 Liters = 32% O2 Percentage 5 Liters = 40% O2 Percentage 5 Liters = 40% O2 Percentage 4 Liters = 36% O2 Percentage 4 Liters = 36% O2 Percentage 5 Liters = 40% Pain Assessment - Last Documented Pain Intensity 6 Pain Scale Used 0-10 Pain Scale Intake and Output: Intake & Output 01/19/18 01/20/18 01/21/18 01/22/18 11:59 11:59 11:59 11:59 Intake Total 240 2350 5797 9748 Output Total 6028 2708 1999 Balance 240 -9404 642 2981 Weight 38.5 kg 39.7 kg Lab Results: Lab Results-Last 24 Hours 01/22/18 01/22/18 Range/Units 05:20 05:20 WBC 5.9 (4.0-10.5) K/mm3 RBC 3.42 L (4.1-5.4) M/mm3 Hgb 11.0 L (12.0-16.0) gm/dl Hct 34.2 L (35-47) % MCV 100.0 (78-100) fl MCH 32.1 H (26-32) pg MCHC 32.2 (32-36) g/dl RDW 13.1 (11.5-14.0) % Plt Count 333 (150-450) K/mm3 MPV 10.0 H (6-9.5) fl Sodium 142 (137-145) mmol/L Potassium 3.6 (3.5-5.1) mmol/L Chloride 106 (98-107) mmol/L Carbon Dioxide 30 (22-30) mmol/L Anion Gap 9.3 (5-15) MEQ/L BUN 9 (7-17) mg/dL Creatinine 0.37 L (0.52-1.04) mg/dL Estimated GFR > 60.0 ML/MIN Glucose 114 H (74-106) mg/dL Calcium 8.1 L (8.4-10.2) mg/dL Assessment/Plan (1) COPD with acute exacerbation Current Visit: Yes Status: Acute Onset Date: ~01/18/18 Assessment & Plan: Subjectively not feeling much improvement in her breathing. Her lung exam is fairly good in light of her COPD. She is on 5L NC instead of her baseline of 4L NC. Change rocephin and zithromax to levaquin. Continue solumedrol 80mg IV q6h. Add mucinex po and mucomyst nebulized. was seen by pulmonology last week who agreed with her tx at that time. Code(s): J44.1 - CHRONIC OBSTRUCTIVE PULMONARY DISEASE W (ACUTE) EXACERBATION (2) HTN (hypertension) Current Visit: Yes Status: Acute Qualifiers: Hypertension type: essential hypertension Qualified Code(s): I10 - Essential (primary) hypertension Assessment & Plan: Increased amlodipine to 10mg po today. She is also on lisinopril 10mg po BID. Code(s): I10 - ESSENTIAL (PRIMARY) HYPERTENSION (3) Seizure disorder Current Visit: No Status: Chronic Code(s): G40.909 - EPILEPSY, UNSP, NOT INTRACTABLE, WITHOUT STATUS EPILEPTICUS (4) Chronic hypoxemic respiratory failure Current Visit: Yes Status: Chronic (5) Hx of aneurysm Current Visit: Yes Status: Chronic Code(s): Z86.79 - PERSONAL HISTORY OF OTHER DISEASES OF THE CIRCULATORY SYSTEM
[2018-01-22] MEDS: Mucinex 600MG ER Tabs PO SCH ×2 (11:00→22:24)
[2018-01-22] MEDS: Levofloxacin 500MG/100ML D5W 500 MG/100 ML BAG IV SCH (11:01)
[2018-01-22] MEDS: Mucomyst 200 MG/ML IH SCH ×3 (12:02→23:04)
[2018-01-22] MEDS: Sodium Chloride 0.9% 1000 ML 1,000 ML IV SCH ×2 (12:29→22:27)
[2018-01-22] MEDS: Zanaflex 4 MG PO PRN (16:31)
[2018-01-22] MEDS: zyPREXA 5MG TABLET PO SCH (22:23)
[2018-01-22] MEDS: Zocor 10MG PO SCH (22:24)
[2018-01-22] MEDS: CLARITIN 10 MG PO SCH (22:24)
[2018-01-22] MEDS: REMERON 30 MG PO SCH (22:24)
[2018-01-22] MEDS: ZOLOFT 50 MG TABLET PO SCH (22:24)
[2018-01-23] MEDS: solu-MEDROL 125 MG IV SCH ×4 (06:03→23:22)
[2018-01-23] MEDS: DUONEB 0.5-3 MG/3 ml Neb IH SCH ×6 (06:08→21:37)
[2018-01-23] MEDS: Sodium Chloride 0.9% 1000 ML 1,000 ML IV SCH ×2 (08:00→18:51)
[2018-01-23] MEDS: NORCO 5/325 MG PO PRN ×2 (08:02→21:05)
--- NOTE | 2018-01-23 08:19 | PCM.NOTE ---
Date and Time: 01/23/18817 Subjective Assessment: patient feeling poorly, can't cough anything up and feels nauseated. still feels short of breath. Objective Exam General Appearance: no apparent distress, thin Skin Exam: normal color, warm, dry Respiratory Exam: diminished breath sounds, prolonged expirations Cardiovascular Exam: regular rate/rhythm, normal heart sounds Gastrointestinal/Abdomen Exam: soft, No tenderness, No mass Extremity Exam: normal inspection, normal range of motion OBJECTIVE DATA Vital Signs: Vital Signs - 24 hr Temp Pulse Resp BP Pulse Ox 01/23/18 06:59 98.4 F 79 18 140/90 99 01/23/18 04:00 97.9 F 77 20 151/89 98 01/23/18 00:00 98.5 F 84 17 179/97 96 01/22/18 23:59 98.5 F 84 17 179/97 96 01/22/18 23:00 84 17 96 01/22/18 19:29 98.1 F 78 18 156/90 98 01/22/18 19:00 83 22 97 01/22/18 16:30 90 20 97 01/22/18 16:00 98.2 F 85 18 136/84 93 L 01/22/18 12:11 94 H 22 95 01/22/18 12:00 98.1 F 89 18 127/72 98 Oxygen-Last 24 hours O2 Percentage 5 Liters = 40% O2 Percentage 4 Liters = 36% O2 Percentage 5 Liters = 40% O2 Percentage 5 Liters = 40% O2 Percentage 5 Liters = 40% O2 Percentage 4 Liters = 36% O2 Percentage 4 Liters = 36% Pain Assessment - Last Documented Pain Intensity 8 Pain Scale Used 0-10 Pain Scale Intake and Output: Intake & Output 01/20/18 01/21/18 01/22/18 01/23/18 11:59 11:59 11:59 11:59 Intake Total 3751 4077 2110 3967 Output Total 7490 3700 2000 2300 Balance -7724 710 8383 7042 Weight 38.5 kg 39.7 kg 39.4 kg 39.5 kg Multi-Disciplinary Progress Notes: Multi-Disciplinary Progress Notes 01/22/18 11:54 Case Management Note by Anna Shetty REVIEWED DISCHARGE PLAN, PLAN TO RETURN HOME WITH [facility] ON DISCHARGE. PLANS FOR [facility] TO FOLLOW FOR ADDNL SUPPORT. HAS HOME OXYGEN AND ALL NEEDED DME IN PLACE. NO ADDNL NEEDS IDENTIFIED AT THIS TIME. REPORTS FEELING POORLY TODAY. Initialized on 01/22/18 11:54 - END OF NOTE Assessment/Plan (1) COPD with acute exacerbation Current Visit: Yes Status: Acute Onset Date: ~01/18/18 Assessment & Plan: continue current regimen Code(s): J44.1 - CHRONIC OBSTRUCTIVE PULMONARY DISEASE W (ACUTE) EXACERBATION (2) Chronic hypoxemic respiratory failure Current Visit: Yes Status: Inactive Onset Date: ~01/19/18
[2018-01-23] MEDS: Pepcid 20 MG PO SCH (09:22)
[2018-01-23] MEDS: Mucinex 600MG ER Tabs PO SCH ×2 (09:22→21:02)
[2018-01-23] MEDS: NICODERM CQ 14 MG TOP SCH (09:22)
[2018-01-23] MEDS: PLAVIX 75 MG Tablet PO SCH (09:22)
[2018-01-23] MEDS: NORVASC 5 MG PO SCH (09:22)
[2018-01-23] MEDS: Toprol Xl 50 MG PO SCH (09:22)
[2018-01-23] MEDS: Zestril 10 MG PO SCH ×2 (09:22→21:04)
[2018-01-23] MEDS: Levofloxacin 500MG/100ML D5W 500 MG/100 ML BAG IV SCH (09:23)
[2018-01-23] MEDS: ENOXAPARIN SODIUM SQ SCH (09:23)
[2018-01-23] MEDS: Tegretol 200 MG PO SCH ×2 (09:23→21:03)
[2018-01-23] MEDS: VOLTAREN 50 MG PO SCH ×2 (09:24→21:03)
[2018-01-23] MEDS: Advair Hfa 230/21 Mcg COMMON CANISTER IH SCH ×2 (09:59→19:05)
[2018-01-23] MEDS: Mucomyst 200 MG/ML IH SCH ×2 (10:00→19:04)
[2018-01-23] MEDS: Spiriva 18 Mcg/Cap Inhaler IH SCH (10:00)
[2018-01-23] MEDS: Ativan 0.5 MG PO PRN ×2 (12:13→21:08)
[2018-01-23] MEDS: APRESOLINE 20 MG/ML INJ IV PRN (17:09)
[2018-01-23] MEDS: SUBLIMAZE 100 MCG/2 ML IV PRN (17:43)
[2018-01-23] MEDS: CLARITIN 10 MG PO SCH (21:02)
[2018-01-23] MEDS: REMERON 30 MG PO SCH (21:03)
[2018-01-23] MEDS: Zocor 10MG PO SCH (21:04)
[2018-01-23] MEDS: zyPREXA 5MG TABLET PO SCH (21:04)
[2018-01-23] MEDS: ZOLOFT 50 MG TABLET PO SCH (21:04)
[2018-01-23] MEDS ORDERED: Toprol Xl 50 MG PO ONE (21:57)
[2018-01-24] MEDS: APRESOLINE 20 MG/ML INJ IV PRN ×2 (00:22→19:48)
[2018-01-24] MEDS: DUONEB 0.5-3 MG/3 ml Neb IH SCH ×6 (02:28→23:23)
[2018-01-24] MEDS: Mucomyst 200 MG/ML IH SCH (02:28)
[2018-01-24] MEDS: SUBLIMAZE 100 MCG/2 ML IV PRN ×4 (03:50→21:35)
[2018-01-24] MEDS: Sodium Chloride 0.9% 1000 ML 1,000 ML IV SCH ×2 (04:39→15:30)
[2018-01-24] MEDS ORDERED: PROVENTIL 2.5 MG/3 ML NEB IH PRN ×2 (05:01→05:07)
[2018-01-24] MEDS ORDERED: PROVENTIL 2.5 MG/3 ML NEB IH ONE (05:02)
[2018-01-24] MEDS: solu-MEDROL 125 MG IV SCH ×4 (05:04→23:40)
[2018-01-24] MEDS: Advair Hfa 230/21 Mcg COMMON CANISTER IH SCH ×2 (06:58→19:28)
[2018-01-24] MEDS: Spiriva 18 Mcg/Cap Inhaler IH SCH (07:03)
[2018-01-24] MEDS: Nitrostat 0.4 MG Tablet SL PRN ×3 (07:15→07:28)
[2018-01-24] MEDS: Levofloxacin 500MG/100ML D5W 500 MG/100 ML BAG IV SCH (09:14)
--- NOTE | 2018-01-24 09:14 | PCM.NOTE ---
Date and Time: 01/24/18910 Subjective Assessment: Pt still not feeling well although breathing is somewhat better than at admission. States, "I had a rough night last night" and says she was SOB when she got up to go to the bathroom. Tolerating po but she does not eat much. She had chest pain last night and troponins were negative x 3. This morning she was also c/o sharp chest pain, 8/10, which was relieved by nitro x 3. Apparently on her last admission she was found to have an [place] and transferred to an outside hospital. - Review of Systems Constitutional: No Fever Respiratory: Cough, Short Of Breath Objective Exam General Appearance: no apparent distress, alert Neurologic Exam: oriented x 3, cooperative Skin Exam: warm, dry, No rash Respiratory Exam: diminished breath sounds (poor to fair air exchange), No crackles/rales, No rhonchi, No wheezing Cardiovascular Exam: regular rate/rhythm, normal heart sounds, No murmur Gastrointestinal/Abdomen Exam: soft, normal bowel sounds, No tenderness, No distention, No mass OBJECTIVE DATA Vital Signs: Vital Signs - 24 hr Temp Pulse Resp BP BP Pulse Ox 01/24/18 07:56 20 01/24/18 07:31 138/79 01/24/18 07:28 71 137/81 01/24/18 07:26 137/81 01/24/18 07:22 71 179/96 01/24/18 07:21 179/96 01/24/18 07:17 175/93 01/24/18 07:15 75 170/80 01/24/18 07:07 97.8 F 75 20 170/80 96 01/24/18 07:00 75 20 96 01/24/18 05:05 71 21 95 01/24/18 04:00 97.7 F 69 18 136/85 94 L 01/24/18 02:28 71 18 95 01/24/18 00:00 97.7 F 78 16 175/94 98 01/23/18 21:37 94 H 22 94 L 01/23/18 19:44 98.3 F 95 H 20 160/100 92 L 01/23/18 19:03 90 19 97 01/23/18 15:47 97.8 F 86 16 162/80 93 L 01/23/18 14:00 98 H 18 98 01/23/18 11:09 97.9 F 80 18 142/89 98 01/23/18 10:00 77 18 98 Oxygen-Last 24 hours O2 Percentage 5 Liters = 40% O2 Percentage 4 Liters = 36% O2 Percentage 4 Liters = 36% O2 Percentage 5 Liters = 40% Pain Assessment - Last Documented Pain Intensity 1 Pain Scale Used 0-10 Pain Scale Intake and Output: Intake & Output 01/21/18 01/22/18 01/23/18 01/24/18 11:59 11:59 11:59 11:59 Intake Total 4077 4981 4087 3523 Output Total 3700 2000 2300 3000 Balance 377 2981 1787 523 Weight 39.7 kg 39.4 kg 39.5 kg 39.3 kg Lab Results: Lab Results-Last 24 Hours 01/23/18 01/24/18 01/24/18 Range/Units 22:08 02:19 04:10 Troponin I < 0.012 < 0.012 < 0.012 (0.000-0.034) ng/mL 01/24/18 Range/Units 06:50 Troponin I < 0.012 (0.000-0.034) ng/mL Assessment/Plan (1) COPD with acute exacerbation Current Visit: Yes Status: Acute Onset Date: ~01/18/18 Assessment & Plan: She has improved somewhat but not markedly. I will discuss with math and physics instructor again. Code(s): J44.1 - CHRONIC OBSTRUCTIVE PULMONARY DISEASE W (ACUTE) EXACERBATION (2) Chest pain Current Visit: Yes Status: Acute Qualifiers: Chest pain type: unspecified Qualified Code(s): R07.9 - Chest pain, unspecified Assessment & Plan: In light of her recent [place] and this somewhat lengthy hospital stay, will consult Dr. Nicole. Code(s): R07.9 - CHEST PAIN, UNSPECIFIED (3) HTN (hypertension) Current Visit: Yes Status: Acute Qualifiers: Hypertension type: essential hypertension Qualified Code(s): I10 - Essential (primary) hypertension Code(s): I10 - ESSENTIAL (PRIMARY) HYPERTENSION (4) Seizure disorder Current Visit: No Status: Chronic Code(s): G40.909 - EPILEPSY, UNSP, NOT INTRACTABLE, WITHOUT STATUS EPILEPTICUS (5) Chronic hypoxemic respiratory failure Current Visit: Yes Status: Chronic (6) Hx of aneurysm Current Visit: Yes Status: Chronic Code(s): Z86.79 - PERSONAL HISTORY OF OTHER DISEASES OF THE CIRCULATORY SYSTEM
[2018-01-24] MEDS: ENOXAPARIN SODIUM SQ SCH (09:17)
[2018-01-24] MEDS: NICODERM CQ 14 MG TOP SCH (09:18)
[2018-01-24] MEDS: Pepcid 20 MG PO SCH (09:19)
[2018-01-24] MEDS: NORVASC 5 MG PO SCH (09:19)
[2018-01-24] MEDS: PLAVIX 75 MG Tablet PO SCH (09:20)
[2018-01-24] MEDS: Toprol Xl 50 MG PO SCH (09:21)
[2018-01-24] MEDS: Tegretol 200 MG PO SCH ×2 (09:21→21:34)
[2018-01-24] MEDS: VOLTAREN 50 MG PO SCH ×2 (09:26→21:34)
[2018-01-24] MEDS: Mucinex 600MG ER Tabs PO SCH ×2 (09:29→21:34)
[2018-01-24] MEDS: Zestril 10 MG PO SCH ×2 (09:29→21:34)
[2018-01-24] MEDS: Ativan 0.5 MG PO PRN ×2 (09:38→21:35)
[2018-01-24] MEDS ORDERED: PHARMACY DOSING REQUEST MC ONE (14:12)
[2018-01-24] MEDS: Aminophylline 500 MG/20 ML*** 500 MG in Sodium Chloride 0.9% 500 ML 480 ML IV SCH (15:30)
[2018-01-24] MEDS: TYLENOL 325 MG PO PRN (19:48)
[2018-01-24] MEDS: CLARITIN 10 MG PO SCH (21:33)
[2018-01-24] MEDS: ZOLOFT 50 MG TABLET PO SCH (21:34)
[2018-01-24] MEDS: REMERON 30 MG PO SCH (21:34)
[2018-01-24] MEDS: Zocor 10MG PO SCH (21:34)
[2018-01-24] MEDS: zyPREXA 5MG TABLET PO SCH (21:35)
[2018-01-25] MEDS: Sodium Chloride 0.9% 1000 ML 1,000 ML IV SCH ×3 (01:05→19:37)
[2018-01-25] MEDS: DUONEB 0.5-3 MG/3 ml Neb IH SCH ×6 (02:58→23:15)
--- NOTE | 2018-01-25 05:25 | PCM.NOTE ---
Date and Time: 01/25/18522 Subjective Assessment: patient still not able to produce any sputum with cough, shortness of breath is better but still gets winded easily with any exertion. otherwise no new complaints Objective Exam General Appearance: no apparent distress, alert Skin Exam: normal color, warm, dry Eye Exam: PERRL, EOMI, eyes nml inspection Respiratory Exam: normal breath sounds, lungs clear, diminished breath sounds, prolonged expirations, No respiratory distress Cardiovascular Exam: regular rate/rhythm, normal heart sounds Gastrointestinal/Abdomen Exam: soft, No tenderness, No mass Extremity Exam: normal inspection, normal range of motion OBJECTIVE DATA Vital Signs: Vital Signs - 24 hr Temp Pulse Resp BP BP Pulse Ox 01/25/18 04:00 97.7 F 72 17 148/82 99 01/25/18 02:58 72 17 99 01/24/18 23:47 97.7 F 75 16 156/90 94 L 01/24/18 23:23 81 19 98 01/24/18 19:43 97.7 F 83 20 177/104 91 L 01/24/18 19:28 83 20 91 L 01/24/18 16:00 98.6 F 76 20 135/71 95 01/24/18 14:42 92 H 22 96 01/24/18 12:00 20 01/24/18 11:39 98.6 F 81 20 158/88 96 01/24/18 10:58 84 18 95 01/24/18 07:56 20 01/24/18 07:31 138/79 01/24/18 07:28 71 137/81 01/24/18 07:26 137/81 01/24/18 07:22 71 179/96 01/24/18 07:21 179/96 01/24/18 07:17 175/93 01/24/18 07:15 75 170/80 01/24/18 07:07 97.8 F 75 20 170/80 96 01/24/18 07:00 75 20 96 Oxygen-Last 24 hours O2 Percentage 5 Liters = 40% O2 Percentage 4 Liters = 36% O2 Percentage 4 Liters = 36% O2 Percentage 4 Liters = 36% O2 Percentage 5 Liters = 40% O2 Percentage 5 Liters = 40% Oxygen Flowrate (L/min)-RT 4 Pain Assessment - Last Documented Pain Intensity 7 Pain Scale Used FLACC Intake and Output: Intake & Output 01/22/18 01/23/18 01/24/18 01/25/18 11:59 11:59 11:59 11:59 Intake Total 4981 4087 3763 1570 Output Total 1999 2300 3300 700 Balance 2981 1787 463 870 Weight 39.4 kg 39.5 kg 39.3 kg Lab Results: Lab Results-Last 24 Hours 01/24/18 Range/Units 06:50 Troponin I < 0.012 (0.000-0.034) ng/mL Assessment/Plan (1) COPD with acute exacerbation Current Visit: Yes Status: Acute Onset Date: ~01/18/18 Assessment & Plan: on theopylline drip, improved. will continue x 24 hours then d/c, continue levaquin, solumedrol and nebs. likely home tomorrow if stays stable Code(s): J44.1 - CHRONIC OBSTRUCTIVE PULMONARY DISEASE W (ACUTE) EXACERBATION (2) Chronic hypoxemic respiratory failure Current Visit: Yes Status: Inactive Onset Date: ~01/19/18
[2018-01-25] MEDS: solu-MEDROL 125 MG IV SCH ×3 (05:28→20:37)
[2018-01-25] MEDS: TYLENOL 325 MG PO PRN (05:28)
[2018-01-25] MEDS: Advair Hfa 230/21 Mcg COMMON CANISTER IH SCH ×2 (06:39→19:14)
[2018-01-25] MEDS: Spiriva 18 Mcg/Cap Inhaler IH SCH (06:39)
[2018-01-25] MEDS: Pepcid 20 MG PO SCH (09:24)
[2018-01-25] MEDS: Levofloxacin 500MG/100ML D5W 500 MG/100 ML BAG IV SCH (09:24)
[2018-01-25] MEDS: NICODERM CQ 14 MG TOP SCH (09:24)
[2018-01-25] MEDS: ENOXAPARIN SODIUM SQ SCH (09:24)
[2018-01-25] MEDS: Toprol Xl 50 MG PO SCH (09:24)
[2018-01-25] MEDS: Zestril 10 MG PO SCH ×2 (09:24→21:38)
[2018-01-25] MEDS: Mucinex 600MG ER Tabs PO SCH ×2 (09:24→21:36)
[2018-01-25] MEDS: NORVASC 5 MG PO SCH (09:24)
[2018-01-25] MEDS: PLAVIX 75 MG Tablet PO SCH (09:24)
[2018-01-25] MEDS: VOLTAREN 50 MG PO SCH ×2 (09:25→21:37)
[2018-01-25] MEDS: Tegretol 200 MG PO SCH ×2 (09:25→21:37)
[2018-01-25] MEDS: SUBLIMAZE 100 MCG/2 ML IV PRN ×2 (09:30→13:44)
[2018-01-25] MEDS: Ativan 0.5 MG PO PRN ×2 (11:31→22:05)
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
[2018-01-25] MEDS: monoKET 20 MG PO SCH (13:41)
[2018-01-25] MEDS ORDERED: SUBLIMAZE 100 MCG/2 ML IV PRN (14:39)
[2018-01-25] MEDS: Aminophylline 500 MG/20 ML*** 500 MG in Sodium Chloride 0.9% 500 ML 480 ML IV SCH (15:20)
[2018-01-25] MEDS: NORCO 5/325 MG PO PRN (18:04)
[2018-01-25] MEDS: REMERON 30 MG PO SCH (21:36)
[2018-01-25] MEDS: CLARITIN 10 MG PO SCH (21:36)
[2018-01-25] MEDS: zyPREXA 5MG TABLET PO SCH (21:38)
[2018-01-25] MEDS: ZOLOFT 50 MG TABLET PO SCH (21:38)
[2018-01-25] MEDS: Zocor 10MG PO SCH (21:38)
[2018-01-26] MEDS: solu-MEDROL 125 MG IV SCH ×2 (01:29→06:27)
[2018-01-26] MEDS: DUONEB 0.5-3 MG/3 ml Neb IH SCH ×3 (03:08→10:13)
[2018-01-26] MEDS: Advair Hfa 230/21 Mcg COMMON CANISTER IH SCH (06:15)
[2018-01-26] MEDS: Spiriva 18 Mcg/Cap Inhaler IH SCH (06:15)
[2018-01-26] MEDS: NORCO 5/325 MG PO PRN (06:54)
[2018-01-26 07:03] VITALS: BP 158/83
[2018-01-26] MEDS: Sodium Chloride 0.9% 1000 ML 1,000 ML IV SCH (07:41)
--- NOTE | 2018-01-26 07:43 | PCM.DS ---
Discharge Summary Date of Admission: 01/19/18 08:48 Admitting Physician: MO SOLORIO Consults: Consults on Case 01/24/18 09:14 Consult Cardiology ROUTINE Primary Care Provider: JC FISHER Allergies Allergies aspirin Allergy (Verified 09/15/17 18:30) Hospital Summary - Hospital Course Hospital Course: patient was admitted as a service patient with no local physician, hx of advanced copd and was seen by Dr Garcia in consultation as he follows her for pulm. doing better at this time, has been on levaquin, IV solumedrol and nebulizer therapy - Vitals & Intake/Output Vital Signs: Vital Signs Temperature 97.8 F 01/26/18 07:02 Pulse Rate 87 01/26/18 07:02 Respiratory Rate 22 01/26/18 07:02 Blood Pressure 158/83 01/26/18 07:02 O2 Sat by Pulse Oximetry 95 01/26/18 06:15 Oxygen-Last Documented O2 Percentage 4 Liters = 36% Intake & Output: Intake & Output 01/23/18 01/24/18 01/25/18 01/26/18 11:59 11:59 11:59 11:59 Intake Total 4087 3763 2050 4601 Output Total 2300 3300 700 2500 Balance 5025 491 4925 2101 Weight 39.5 kg 39.3 kg 39.5 kg 45.2 kg - Lab Result Diagrams: 01/22/18 05:20 01/22/18 05:20 Lab Results-Last 24 Hrs: Lab Results-Last 24 Hours 01/26/18 Range/Units 05:43 Theophylline 9.1 L (10-20) ug/mL - Procedures and Test Procedures and Tests throughout Hospitalization: Therapy Orders & Screens 01/21/18 16:37 Respiratory Nebulizer UD Comment: DUONEB Q4PRN Diagnosis: Shortness of breath, hypoxia, COPD Exacerbation 01/22/18 10:19 Respiratory Nebulizer Q8H Comment: Diagnosis: Shortness of breath, hypoxia, COPD Exacerbation 01/23/18 21:57 EKG STAT Comment: Diagnosis: Shortness of breath, hypoxia, COPD Exacerbation 01/24/18 05:06 Respiratory Nebulizer PRN Comment: ALBUTEROL Q2PRN FOR SOB/WHEEZING Diagnosis: Shortness of breath, hypoxia, COPD Exacerbation 01/24/18 07:19 EKG ONCE Comment: Diagnosis: Shortness of breath, hypoxia, COPD Exacerbation Discharge Exam General Appearance: no apparent distress, alert, thin Neurologic Exam: alert, oriented x 3 Skin Exam: normal color, warm, dry Respiratory Exam: lungs clear, diminished breath sounds, prolonged expirations Cardiovascular Exam: regular rate/rhythm, normal heart sounds Gastrointestinal/Abdomen Exam: soft, No tenderness, No mass Extremity Exam: normal inspection, normal range of motion Final Diagnosis/Problem List - Final Discharge Diagnosis/Problem (1) COPD with acute exacerbation Current Visit: Yes Status: Acute Onset Date: ~01/18/18 (2) Chronic hypoxemic respiratory failure Current Visit: Yes Status: Inactive Onset Date: ~01/19/18 - Discharge Disposition: Home, Self-Care Condition: Fair Prescriptions: New Prednisone 20 mg [Deltasone 20 mg] 20 mg PO UD #18 tablet Isosorbide Mononitrate 20 mg [monoKET 20 MG] 20 mg PO DAILY #30 tablet Lisinopril 10 mg [Zestril 10 MG] 10 mg PO BID #60 tablet Continue Trazodone HCl 50 mg [Desyrel 50 mg] 100 mg PO QHS Albuterol Sulfate [Ventolin Hfa] 2 puff IH QID PRN PRN PRN Reason: Shortness Of Breath Tizanidine HCl 4 mg [Zanaflex 4 MG] 2 mg PO QID PRN PRN PRN Reason: Muscle Spasms Mirtazapine 30 mg PO HS Cholecalciferol (Vitamin D3) [Vitamin D3] 50,000 unit PO WEEKLY Alendronate Sodium 70 mg PO WEEKLY Tiotropium [place] Inhaler [Spiriva 18 Mcg/Cap Inhaler] 1 cap IH DAILY Carbamazepine [Carbamazepine ER] 200 mg PO BID Nitroglycerin 0.4 mg Tablet [Nitrostat 0.4 MG Tablet] 0.4 mg SL Q5MIN PRN MR X 3 PRN PRN Reason: Chest Pain Atorvastatin Calcium 10 mg PO DAILY Famotidine 40 mg PO DAILY Ipratropium/Albuterol Sulfate [Iprat-Albut 0.5-3(2.5) mg/3 ml] 3 ml IH Q4H PRN PRN PRN Reason: Shortness Of Breath Diclofenac Sodium 75 mg PO BID Fluticasone/Salmeterol [Advair 250-50 Diskus] 1 puff IH DAILY Budesonide/Formoterol Fumarate [Symbicort 80-4.5 Mcg Inhaler] 1 puff IH DAILY Nicotine [Nicotine Patch] 17 mg TOP DAILY Metoprolol Succinate 50 mg [Toprol Xl 50 MG] 50 mg PO DAILY Sertraline HCl 50 mg [Zoloft 50 mg Tablet] 50 mg PO HS Lorazepam 0.5 mg [Ativan 0.5 MG] 0.5 mg PO BID PRN PRN PRN Reason: Anxiety Clopidogrel Bisulfate [Clopidogrel] 75 mg PO DAILY OLANZapine [Olanzapine] 20 mg PO HS Levocetirizine Dihydrochloride 5 mg PO HS Acetaminophen/Diphenhydramine [Tylenol Pm Ex-Strength Caplet] 2 each PO BID PRN PRN PRN Reason: Pain Discontinued Prednisone 10 mg [Deltasone 10 mg] 10 mg PO UD Ciprofloxacin HCl [Cipro] 250 mg PO Q12H Lisinopril [Lisinopril] 5 mg PO DAILY Amoxicillin 500 mg Cap [Amoxil 500 mg] 500 mg PO TID Follow up with: JC FISHER [Primary Care Provider] - 02/01/18 11:30 am ELIZABET GARCIA [ACTIVE STAFF] - 02/09/18 10:00 am (at [facility]) JADA OJEDA [ACTIVE STAFF] - 02/01/18 2:30 pm ([facility])
[2018-01-26] MEDS: ENOXAPARIN SODIUM SQ SCH (09:14)
[2018-01-26] MEDS: NICODERM CQ 14 MG TOP SCH (09:14)
[2018-01-26] MEDS: Mucinex 600MG ER Tabs PO SCH (09:15)
[2018-01-26] MEDS: NORVASC 5 MG PO SCH (09:15)
[2018-01-26] MEDS: monoKET 20 MG PO SCH (09:15)
[2018-01-26] MEDS: Toprol Xl 50 MG PO SCH (09:15)
[2018-01-26] MEDS: Levofloxacin 500MG/100ML D5W 500 MG/100 ML BAG IV SCH (09:15)
[2018-01-26] MEDS: PLAVIX 75 MG Tablet PO SCH (09:15)
[2018-01-26] MEDS: Pepcid 20 MG PO SCH (09:15)
[2018-01-26] MEDS: Zestril 10 MG PO SCH (09:15)
[2018-01-26] MEDS: VOLTAREN 50 MG PO SCH (09:16)
[2018-01-26] MEDS: Tegretol 200 MG PO SCH (09:17)
[2018-01-26 10:24] VITALS: PULSE 98; O2SAT 94
== END 2018-01-26 10:44 | disposition home or self-care (01) | DRG 191 ==
LOC: ED 16:46 → MED SURG 20:31 → OBSVTOIN 01-19 08:48
PROVIDERS: ADMIT Family Medicine; ATTEND Family Medicine
DX: J44.1 Chronic obstructive pulmonary disease with (acute) exacerbation (principal); J96.11 Chronic respiratory failure with hypoxia; J20.9 Acute bronchitis, unspecified; I10 Essential (primary) hypertension; M19.90 Unspecified osteoarthritis, unspecified site; M81.0 Age-related osteoporosis without current pathological fracture; F41.8 Other specified anxiety disorders; Z85.41 Personal history of malignant neoplasm of cervix uteri; Z72.0 Tobacco use; G40.909 Epilepsy, unspecified, not intractable, without status epilepticus; Z86.79 Personal history of other diseases of the circulatory system; R07.89 Other chest pain; I25.10 Atherosclerotic heart disease of native coronary artery without angina pectoris; I25.2 Old myocardial infarction; E78.5 Hyperlipidemia, unspecified; Z89.611 Acquired absence of right leg above knee
CPT/HCPCS: 36000; 36415; 36600; 71045; 80048; 80053; 80198; 82375; 82803; 83880; 84484; 85025; 85027; 85379; 87631; 93005; 93041; 93268; 94150; 94640; 94760; 96360; 96365; 96374; 99285; J0280; J0360; J0456; J0696; J1650; J1956; J2405; J2930; J3010; J7609; A9270-GY; G0378

== ENCOUNTER 2018-03-22 14:27 | Emergency (ER) | payer OTHER ==
[2018-03-22] MEDS ORDERED: Sodium Chloride 0.9% 1000 ML 1,000 ML IV STA (14:46)
[2018-03-22] MEDS ORDERED: Phenergan 25 MG INJ IV ONE (14:46)
--- NOTE | 2018-03-22 14:52 | ERPHSYRPT ---
- History of Present Illness Time Seen by Provider: 03/22/18 14:44 Historian: patient Exam Limitations: no limitations Patient Subjective Stated Complaint: pt brought to ed per ems with reports of constipation x 3 wks-reports abd pain and discomfort-reports vomit x 1 yesterday -states she hasn't felt good and has not been taking her home meds Triage Nursing Assessment: pt arrives to ed pale warm and dry-abd tender-pt rubbing low abd and moaning-resp nonlabored Physician History: 52-year-old white female with history of migraines, seizures, COPD, emphysema Arrives with complaint of the constipation for 3 weeks states she has had generalized abdominal pain and discomfort she states she vomited one time she states she is short of breath at home she was given a breathing treatment by the medics. Past medical history includes migraines, seizures, COPD, emphysema, aneurysm of the brain, high blood pressure, cervical cancer, arthritis, osteoporosis, anxiety, depression, DVT. Past surgical history includes lobectomy, cardiac catheter, hernia repair, hysterectomy, , amputation, right [id number] amputation, aneurysm of the brain was clipped, carpal tunnel. Timing/Duration: week(s) (3 weeks) Activities at Onset: none Quality: cramping Abdominal Pain Onset Location: generalized abdomen Pain Radiation: no radiation Severity of Pain-Max: moderate Severity of Pain-Current: moderate Modifying Factors: Improves With: nothing Associated Symptoms: nausea, vomiting, No back, No chest pain, No diaphoresis, No fever/chills, No fatigue, No headache, No heartburn, No loss of appetite, No neck pain, No rash, No shortness of breath, No syncope Previous symptoms: no prior history Allergies/Adverse Reactions: aspirin Allergy (Unknown, Verified 03/22/18 14:33) Home Medications: Albuterol Sulfate [Ventolin Hfa] 2 puff IH QID PRN PRN 10/13/16 [History] Trazodone HCl 50 mg [Desyrel 50 mg] 100 mg PO QHS 10/13/16 [History] Tizanidine HCl 4 mg [Zanaflex 4 MG] 2 mg PO QID PRN PRN 06/06/17 [History] Alendronate Sodium 70 mg PO WEEKLY 06/30/17 [History] Cholecalciferol (Vitamin D3) [Vitamin D3] 50,000 unit PO WEEKLY 06/30/17 [ History] Mirtazapine 30 mg PO HS 06/30/17 [History] Carbamazepine [Carbamazepine ER] 200 mg PO BID 08/17/17 [History] Tiotropium [place] Inhaler [Spiriva 18 Mcg/Cap Inhaler] 1 cap IH DAILY [History] Atorvastatin Calcium 10 mg PO DAILY 09/15/17 [History] Famotidine 40 mg PO DAILY 09/15/17 [History] Ipratropium/Albuterol Sulfate [Iprat-Albut 0.5-3(2.5) mg/3 ml] 3 ml IH Q4H PRN PRN 09/15/17 [History] Nitroglycerin 0.4 mg Tablet [Nitrostat 0.4 MG Tablet] 0.4 mg SL Q5MIN PRN MR X 3 PRN 09/15/17 [History] Acetaminophen/Diphenhydramine [Tylenol Pm Ex-Strength Caplet] 2 each PO BID PRN PRN 01/18/18 [History] Budesonide/Formoterol Fumarate [Symbicort 80-4.5 Mcg Inhaler] 1 puff IH DAILY [History] Clopidogrel Bisulfate [Clopidogrel] 75 mg PO DAILY 01/18/18 [History] Diclofenac Sodium 75 mg PO BID 01/18/18 [History] Fluticasone/Salmeterol [Advair 250-50 Diskus] 1 puff IH DAILY 01/18/18 [History] Levocetirizine Dihydrochloride 5 mg PO HS 01/18/18 [History] Lorazepam 0.5 mg [Ativan 0.5 MG] 0.5 mg PO BID PRN PRN 01/18/18 [History] Metoprolol Succinate 50 mg [Toprol Xl 50 MG] 50 mg PO DAILY 01/18/18 [ History] Nicotine [Nicotine Patch] 17 mg TOP DAILY 01/18/18 [History] OLANZapine [Olanzapine] 20 mg PO HS 01/18/18 [History] Sertraline HCl 50 mg [Zoloft 50 mg Tablet] 50 mg PO HS 01/18/18 [History] Furosemide [Lasix] 20 mg PO DAILY 03/22/18 [History] Potassium Chloride 10 Meq Tab* [Klor Con 10 MEQ] 10 meq PO DAILY 03/22/18 [ History] Hx Tetanus, Diphtheria Vaccination/Date Given: Yes Hx Influenza Vaccination/Date Given: Yes Hx Pneumococcal Vaccination/Date Given: Yes Immunizations Up to Date: Yes - Review of Systems Constitutional: No Fever, No Chills Eyes: No Symptoms Ears, Nose, & Throat: No Symptoms Respiratory: Dyspnea, Wheezing, No Cough Cardiac: No Chest Pain, No Edema, No Syncope Abdominal/Gastrointestinal: Abdominal Pain Genitourinary Symptoms: No Dysuria Musculoskeletal: No Back Pain, No Neck Pain Skin: No Rash Neurological: No Dizziness, No Focal Weakness, No Sensory Changes Psychological: No Symptoms Endocrine: No Symptoms All Other Systems: Reviewed and Negative - Past Medical History Pertinent Past Medical History: Yes Neurological History: Migraines, Seizures, Other ENT History: No Pertinent History Cardiac History: Aneurysm, Hypertension, Other Respiratory History: COPD, Emphysema Endocrine Medical History: No Pertinent History Musculoskeletal History: Arthritis, Osteoporosis, Other GI Medical History: No Pertinent History History: No Pertinent History Psycho-Social History: Anxiety, Depression Female Reproductive Disorders: Cervical Cancer Other Medical History: DVT while - Past Surgical History Past Surgical History: Yes Neuro Surgical History: No Pertinent History Cardiac: Cardiac Catheterization Respiratory: Lobectomy Gastrointestinal: Hernia Repair Musculoskeletal: Amputation, Other Female Surgical History: Hysterectomy, Section Other Surgical History: 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 carpel tunnel - Social History Smoking Status: Current every day smoker How long have you smoked: yrs Exposure to second hand smoke: Yes Drug Use: none Patient Lives Alone: No Significant Family History: no pertinent family hx - Female History Hx Now: No - Nursing Vital Signs Nursing Vital Signs: Initial Vital Signs Temperature 98.2 F 03/22/18 14:29 Pulse Rate 95 H 03/22/18 14:29 Respiratory Rate 18 03/22/18 14:29 Blood Pressure 98/63 03/22/18 14:29 O2 Sat by Pulse Oximetry 98 03/22/18 14:29 Pain Scale Pain Intensity 10 - Physical Exam General Appearance: mild distress Eye Exam: PERRL/EOMI, eyes nml inspection Ears, Nose, Throat Exam: normal ENT inspection, pharynx normal, moist mucous membranes Neck Exam: normal inspection, non-tender, supple, full range of motion Respiratory Exam: normal breath sounds, lungs clear, No respiratory distress Cardiovascular Exam: regular rate/rhythm, normal heart sounds, normal peripheral pulses Gastrointestinal/Abdomen Exam: other (abdomen moderately firm diffuse tenderness , positive bowel sounds) Rectal Exam: normal exam Back Exam: normal inspection, normal range of motion, No CVA tenderness, No vertebral tenderness Extremity Exam: normal inspection, normal range of motion, pelvis stable Neurologic Exam: alert, oriented x 3, cooperative, alteration manager II-XII nml as tested, normal mood/affect, nml cerebellar function, sensation nml, No motor deficits Skin Exam: normal color, warm, dry SpO2 Interpretation: normal (98%) SpO2: 98 Oxygen Delivery: Room Air - Course Nursing assessment & vital signs reviewed: Yes EKG Interpreted by Me: RATE (81 bpm), Sinus Rhythm, NORMAL AXIS, Other (EKG: Sinus rhythm, 81 bpm, normal axis, moderate amount of artifact, , T wave inversion V2 through V4) - Radiology Exams Chest X-ray Interpretation: Discussed w/ radiologist (chest x-ray: Impression: 1. Advanced COPD with extensive bullous emphysema within the upper half of the right lung and upper 60% of the left lung representing no significant change from January 18, 2018 2. Evidence of prior right lung surgery with extensive surgical material overlying the right upper and mid lung zones 3. Small wedge- shaped opacity at the lateral right lung base adjacent to the right hemidiaphragm consistent with chronic focal scarring or atelectasis unchanged from January 18, 2018 4. No acute cardiopulmonary disease is seen.) - CT Exams Abdomen/Pelvis CT Interpretation: Discussed w/radiologist (CT abdomen and pelvis: Impression: 1. Abnormal bowel gas patern which is worrisome for either a partial distal small bowel obstruction or early complete distal small bowel obstruction abundant scattered air-fluid levels are seen throughout the small bowel. Only the most distal aspect of the small bowel appears nondistendedthere is also abundant fluid within a dilated stomach. Consider passage of NG tube for decompression 2. Gallbladder is enlarge with a with of 4.8 cm. A calculus cholecystitis needs to be considered no gallbladder wall thickening or pericholecystic fluid/edema. Also no intrahepatic biliary Duct distention is seen. 3. No free intraperitoneal air or free intraperitoneal fluid is seen. 4. Status post hysterectomy. Some small metallic surgical devices are seen within the anterior aspect of the right hemipelvis from past surgery correlate with surgical history 5. Moderate atherosclerotic vascular calcification is seen, primarily within the distal abdominal aorta and proximal iliac arteries. 6. Evidence of amputatio at the level of the proximal right mid thigh. 7 some scattered colonic stool is seen within nondilated colon which may be due to some constipation) Ordered Tests: Active Orders 24 hr Category Date Time Status EKG-ER Only STAT Care 03/22/18 16:36 Active IV Insertion STAT Care 03/22/18 14:47 Active ABDOMEN AND PELVIS W/0 CONTRAS [CT] Stat Exams 03/22/18 14:47 Completed CHEST 1 VIEW (PORTABLE) Stat Exams 03/22/18 14:47 Completed AMYLASE Stat Lab 03/22/18 16:03 Completed CBC W DIFF Stat Lab 03/22/18 16:03 Completed CMP Stat Lab 03/22/18 16:03 Completed LIPASE Stat Lab 03/22/18 16:03 Completed Manual Differential NC Stat Lab 03/22/18 16:03 Completed Occult Blood,Stool Other Stat Lab 03/22/18 16:43 Completed UA W/RFX UR CULTURE Stat Lab 03/22/18 14:46 Uncollected Urine Triage Profile Stat Lab 03/22/18 14:46 Uncollected Medication Summary Discontinued Medications Generic Name Dose Route Start Last Admin Trade Name Freq PRN Reason Stop Dose Admin Sodium Chloride 1,000 mls @ 999 mls/hr 03/22/18 14:46 03/22/18 15:09 Sodium Chloride 0.9% 1000 Ml IV 03/22/18 15:46 999 mls/hr .Q1H1M STA Administration Sodium Chloride Confirm 03/22/18 14:58 Sodium Chloride 0.9% 1000 Ml Administered 03/22/18 14:59 Dose 1,000 mls @ ud .ROUTE .STK-MED ONE Morphine Sulfate 4 mg 03/22/18 16:49 03/22/18 17:04 Morphine Sulfate 4 Mg Inj IV 03/22/18 16:50 4 mg STAT ONE Administration Morphine Sulfate Confirm 03/22/18 17:00 Morphine Sulfate 4 Mg Inj Administered 03/22/18 17:01 Dose 4 mg .ROUTE .STK-MED ONE Promethazine HCl 12.5 mg 03/22/18 14:46 03/22/18 15:09 Phenergan 25 Mg Inj IV 03/22/18 14:47 12.5 mg STAT ONE Administration Promethazine HCl Confirm 03/22/18 14:58 Phenergan 25 Mg Inj Administered 03/22/18 14:59 Dose 25 mg .ROUTE .[facility]-MED ONE Lab/Rad Data: Laboratory Result Diagrams 03/22/18 16:03 03/22/18 16:03 Laboratory Results 03/22/18 03/22/18 03/22/18 Range/Units 16:43 16:03 16:03 WBC 12.5 H (4.0-10.5) K/mm3 RBC 3.89 L (4.1-5.4) M/mm3 Hgb 12.4 (12.0-16.0) gm/dl Hct 37.4 (35-47) % MCV 96.1 (78-100) fl MCH 31.8 (26-32) pg MCHC 33.2 (32-36) g/dl RDW 13.3 (11.5-14.0) % Plt Count 460 H (150-450) K/mm3 MPV 10.3 H (6-9.5) fl Absolute Granulocytes 7.84 H (1.4-6.9) Segmented Neutrophils 54 (36.0-66.0) % Band Neutrophils 13 H (0.0-2.0) % Lymphocytes (Manual) 11 L (24-44) % Monocytes (Manual) 21 H (0.0-12.0) % Basophils (Manual) 1 (0.0-1.0) % Platelet Estimate NORMAL (NORMAL) RBC Morphology NORMAL Sodium 139 (137-145) mmol/L Potassium 4.5 (3.5-5.1) mmol/L Chloride 101 (98-107) mmol/L Carbon Dioxide 20 L (22-30) mmol/L Anion Gap 23.3 H (5-15) MEQ/L BUN 65 H (7-17) mg/dL Creatinine 2.76 H (0.52-1.04) mg/dL Estimated GFR 19.2 ML/MIN Glucose 92 (74-106) mg/dL Calcium 7.2 L (8.4-10.2) mg/dL Total Bilirubin 1.30 (0.2-1.3) mg/dL AST 23 (14-36) U/L ALT 13 (0-35) U/L Alkaline Phosphatase 111 (38-126) U/L Serum Total Protein 5.4 L (6.3-8.2) g/dL Albumin 3.0 L (3.5-5.0) g/dL Amylase 43 (30-110) U/L Lipase 19 L (23-300) U/L Stool Occult Blood NEGATIVE (Negative) - Progress Progress: improved Progress Note: 03/22/18 16:37 This is a 52-year-old white female with a history of severe COPD, migraines, seizures, emphysema, high blood pressure She arrives with complaint of being unable to have a bowel movement for 3 weeks She states she has generalized abdominal pain patient was short of breath she has chronic COPD. On physical examination patient somewhat diminished breath sounds she had just received a breathing treatment from medics. Abdomen was firm and diffusely tender positive bowel sounds there was no rebound. Labs CBC White cell 12.5 hemoglobin 12.4 hematocrit 37.4 patient's chemistry was remarkable for a BUN of 65 a creatinine of 2.76 GFR is 19.2 sodium 139 potassium 4.5 chloride 101 bicarbonate 20 amylase is 43 lipase is 19 anion gap was increased at 23.[address] of the abdomen and pelvis without contrast is remarkable for abdominal bowel gas pattern worrisome for either a partial distal small bowel obstruction or early complete distal small bowel obstruction. There is abundant scattered air-fluid level seen throughout the mildly dilated small bowels. Only the most distal aspect of the small bowel appears nondistended. There is also abundant fluid within a dilated stomach. Consideration should be given to passage of an NG tube for decompression. The gallbladder is enlarged with a with a 4.8 cm a calculus cholecystitis needs to be considered. Although no gallbladder wall thickening or pericholecystic fluid/edema is noted also no intrahepatic biliary Duct distention is seen. There is no free intraperitoneal air or free intraperitoneal fluid Patient's chest x-ray is remarkable for advanced COPD with extensive bullous emphysema within the upper half of the right lung and upper 60% of the left lung representing no significant change from January 18, 2018. Patient does seem to be improved after IV Phenergan and normal saline. Patient has not been able to provide a urine at this time she does not want catheterization. Will contact Dr. Ren physician on-call to discuss possible placing this patient on observation with IV fluids 03/22/18 17:24 I discussed the patient's case with Dr. Lucero, he requested that I send the patient to [facility] Patient has been given IV fluids given morphine and Phenergan for pain - Departure Time of Disposition: 18:41 Departure Disposition: Transfer ([facility] Dr. Lucero) Clinical Impression: Small bowel obstruction Abdominal pain Qualifiers: Abdominal location: generalized Qualified Code(s): R10.84 - Generalized abdominal pain COPD (chronic obstructive pulmonary disease) Qualifiers: COPD type: unspecified COPD Qualified Code(s): J44.9 - Chronic obstructive pulmonary disease, unspecified Condition: Fair Critical Care Time: No Referrals: JC FSIHER [Primary Care Provider] - Instructions: Chronic Obstructive Pulmonary Disease
[2018-03-22] MEDS ORDERED: Sodium Chloride 0.9% 1000 ML 1,000 ML ONE ×2 (14:58→19:32)
[2018-03-22] MEDS ORDERED: Phenergan 25 MG INJ ONE (14:58)
--- NOTE | 2018-03-22 15:39 | XRAY ---
Exam: AP upright portable chest film from 03/22/2018. Comparison: AP upright portable chest film from 01/18/2018. Indication: Chest pain and abdomen pain. Findings: The heart size is within normal limits left peak. There is hyperinflation of the lung strick[place] consistent with COPD. Extensive bullous changes are seen within the right upper lung field and upper 60% of the left lung field representing no change. Extensive surgical suture material overlies the right upper and midlung field representing no change. Minimal linear scarring is seen projected over the AP window on the left. I believe there is also some mild focal scarring/partial atelectasis at the lateral right lung base adjacent to the right hemidiaphragm. This also is unchanged. No air space infiltrates or vascular congestion is seen. No pneumothorax or pleural fluid is seen. The bones appear intact. Impression: 1. Advanced COPD with extensive bullous emphysema within the upper half of the right lung and upper 60% of the left lung representing no significant change from 01/18/2018. 2. Evidence of prior right lung surgery with extensive surgical suture material overlying the right upper and midlung zones. 3. Small wedge-shaped opacity at lateral right lung base adjacent to the right hemidiaphragm consistent with chronic focal scarring or atelectasis. This is unchanged from 01/18/2018. I believe there is also some minimal linear scarring within the projection of the left AP window. 4. No acute cardiopulmonary disease is seen.
[2018-03-22 16:05] LABS: Granulocyte Absolute (ANC) 7.84 (1.4-6.9); Hematocrit 37.4 % (35-47); Hemoglobin 12.4 gm/dl (12.0-16.0); Mean Cell Volume 96.1 fl (78-100); Mean Corpuscular Hgb Concent. 33.2 g/dl (32-36); Mean Platelet Volume 10.3 fl (6-9.5); Platelet Count 460 K/mm3 (150-450); Red Blood Count 3.89 M/mm3 (4.1-5.4); Red Cell Distribution Width 13.3 % (11.5-14.0); White Blood Count 12.5 K/mm3 (4.0-10.5)
[2018-03-22 16:06] LABS: Mean Corpuscular Hemoglobin 31.8 pg (26-32)
--- NOTE | 2018-03-22 16:08 | XRAY ---
Exam: CT of the abdomen and pelvis without IV contrast from 03/22/2018. CTDI: 8.07 Comparison: CT of the abdomen without and with IV contrast and CT of the pelvis with IV contrast, both from 09/16/2014. Indication: Left lower quadrant abdominal pain, generalized abdominal pain, no bowel movement for 3 weeks. Also, the patient marked "yes" to the question that she has blood in her urine. History of prior hysterectomy. Technique: Non-IV contrast axial images were obtained through the abdomen and pelvis. Reconstructed coronal and sagittal images were created and reviewed. Findings: Incidentally, on the pay agent image there is noted to be an amputation at the level of the proximal to mid right thigh. Correlate clinically. I again see a mild discoid scarring or atelectasis at the lateral right lung base which involves the lateral aspect of the right hemidiaphragm. Minimal scarring is seen at the anterior lateral pleural margin of the left lung base. No active basilar lung disease is seen. Assessment of the solid organs is limited without the use of IV contrast. There is a large amount of fluid within the stomach with a prominent air-fluid level. I would consider passage of an NG tube for stomach decompression. Also, multiple fluid-filled dilated small bowel loops are seen with scattered air-fluid levels. The proximal jejunum measures up to 3.1 cm in diameter. The dilated small bowel loops extend into the lower pelvis. Some of the most distal small bowel bowel loops are not distended within the right hemipelvis. This could represent a partial distal small bowel obstruction or early distal small bowel obstruction. No free air or free fluid is seen. A mild amount of scattered stool is seen throughout a nondilated colon. This could be due to mild constipation. In addition, the gallbladder is abnormally distended measuring up to 4.8 cm in width. I do not see definite intraluminal gallbladder calcifications. No gallbladder wall thickening or pericholecystic fluid is seen. No obvious intrahepatic biliary duct distention is seen. The liver appears grossly unremarkable. The spleen is not enlarged. No splenic mass is seen. The pancreas appears grossly unremarkable. No adrenal abnormality is seen. The kidneys reveal no definite mass, hydronephrosis, or renal calculi. The right kidney measures 9.5 cm in length on sagittal image #40 and the left kidney measures 10.4 cm in length on sagittal image #91. Moderate atherosclerotic vascular calcification is seen within the abdominal aorta and proximal iliac arteries. No abdominal aortic aneurysm or abnormal retroperitoneal lymphadenopathy is seen. Some small metallic densities are seen within the anterior aspect of the lower right hemipelvis from prior surgery. The uterus is surgically absent. The urinary bladder is almost empty. No pelvic adnexal mass or enlarged pelvic lymph nodes are seen. No inflammatory process is seen within the right lower quadrant. Also, no significant sigmoid colon diverticula or inflammatory process within the left lower quadrant to suggest diverticulitis is seen. The bones reveal no acute fracture or aggressive bone lesion. A couple small incidental bone islands are seen within the upper left hemipelvis. Impression: 1. Abnormal bowel gas pattern which is worrisome for either a partial distal small bowel obstruction or early complete distal small bowel obstruction. Abundant scattered air-fluid levels are seen throughout the mildly dilated small bowel. Only the most distal aspect of the small bowel appears nondistended. There is also abundant fluid within a dilated stomach. I would consider passage of an NG tube for decompression. 2. The gallbladder is enlarged with a width of 4.8 cm. Acalculus cholecystitis needs to be considered, although I see no gallbladder wall thickening or pericholecystic fluid/edema. Also, no intrahepatic biliary duct distention is seen. 3. No free intraperitoneal air or free intraperitoneal fluid is seen. 4. Status post hysterectomy. Some small metallic surgical devices are seen within the anterior aspect of the right hemipelvis from past surgery. Correlate with surgical history. 5. Moderate atherosclerotic vascular calcification is seen, primarily within the distal abdominal aorta and proximal iliac arteries. 6. There is evidence of amputation at the level of the proximal to mid right thigh. 7. Some scattered colonic stool is seen within nondilated colon which may be due to some constipation.
[2018-03-22 16:26] LABS: ANION GAP 23.3 MEQ/L (5-15); BILIRUBIN,TOTAL 1.3 mg/dL (0.2-1.3); Calcium 7.2 mg/dL (8.4-10.2); Creatinine 1 2.76 mg/dL (0.52-1.04); Potassium 4.5 mmol/L (3.5-5.1); Total Protein 5.4 g/dL (6.3-8.2)
[2018-03-22] MEDS ORDERED: MORPHINE SULFATE 4 MG INJ IV ONE (16:49)
[2018-03-22] MEDS ORDERED: MORPHINE SULFATE 4 MG INJ ONE (17:00)
[2018-03-22 17:58] LABS: BAND 13 % (0.0-2.0); Basophil 1 % (0.0-1.0); Lymphocytes 11 % (24-44); Monocyte 21 % (0.0-12.0); Neutrophils 54 % (36.0-66.0); Platelet Estimate NORMAL (NORMAL); Total Cells Counted 100
[2018-03-22 18:49] VITALS: O2SAT 98
[2018-03-22 19:22] VITALS: BP 106/75; PULSE 83
== END 2018-03-22 19:52 | disposition short-term general hospital (02) ==
LOC: ED 14:27
DX: R10.84 Generalized abdominal pain (principal); J44.9 Chronic obstructive pulmonary disease, unspecified; G40.909 Epilepsy, unspecified, not intractable, without status epilepticus; I10 Essential (primary) hypertension; K80.10 Calculus of gallbladder with chronic cholecystitis without obstruction; M19.90 Unspecified osteoarthritis, unspecified site; M81.0 Age-related osteoporosis without current pathological fracture; F41.8 Other specified anxiety disorders; Z85.41 Personal history of malignant neoplasm of cervix uteri; Z86.718 Personal history of other venous thrombosis and embolism; Z79.899 Other long term (current) drug therapy; Z72.0 Tobacco use
CPT/HCPCS: 36415; 71045; 74176; 80053; 82150; 82272; 83690; 85025; 93005; 96374; 96375; 99285; J2270; J2550

== ENCOUNTER 2018-04-22 10:45 | Emergency (ER) | payer OTHER ==
[2018-04-22] MEDS ORDERED: Sodium Chloride 0.9% 1000 ML 1,000 ML IV STA ×2 (11:12→16:59)
[2018-04-22] MEDS ORDERED: MORPHINE SULFATE 4 MG INJ IV ONE (11:12)
[2018-04-22] MEDS ORDERED: Pepcid 20 MG VIAL IV ONE ×2 (11:12→11:16)
[2018-04-22] MEDS ORDERED: Zofran 4 MG/2 ML VIAL IV ONE (11:12)
--- NOTE | 2018-04-22 11:12 | ERPHSYRPT ---
- History of Present Illness Time Seen by Provider: 04/22/18 11:02 Source: patient, family Exam Limitations: no limitations Patient Subjective Stated Complaint: pt here for multi cos, she cos weakness, not eating, and chest pain. pain started today, family took pts pain meds away last night because they thinks she is addicted,pt has recent abd surg [facility], no one in home knows reson for surgery Triage Nursing Assessment: pt alert, maoning out. resp labored at times,chest , no edema, pt is right leg amputee Physician History: The patient is a 52-year-old female brought in by ambulance from home with multiple complaints. The patient is a very poor historian. She states she went to [facility] because of chest pain that has been going on for 2 months. She states she had abdominal surgery and had her intestines replaced yesterday and was sent home. She does not know what kind of surgery it is really was because she says she was not consciousness during the surgery. Her boyfriend has taken away her pain medicines and she complains of abdominal pain. She also states she hasn't eaten well. She also has diarrhea. Her past medical history is significant for COPD, seizure disorder, hypertension, aneurysm, anxiety, and small bowel obstruction. Timing/Duration: today Severity: moderate Associated Symptoms: abdominal pain Allergies/Adverse Reactions: aspirin Allergy (Unknown, Verified 04/22/18 11:04) Home Medications: Albuterol Sulfate [Ventolin Hfa] 2 puff IH QID PRN PRN 10/13/16 [History] Trazodone HCl 50 mg [Desyrel 50 mg] 100 mg PO QHS 10/13/16 [History] Mirtazapine 30 mg PO HS 06/30/17 [History] Carbamazepine [Carbamazepine ER] 200 mg PO BID 08/17/17 [History] Tiotropium [place] Inhaler [Spiriva 18 Mcg/Cap Inhaler] 1 cap IH DAILY [History] Famotidine 40 mg PO DAILY 09/15/17 [History] Ipratropium/Albuterol Sulfate [Iprat-Albut 0.5-3(2.5) mg/3 ml] 3 ml IH Q4H PRN PRN 09/15/17 [History] Nitroglycerin 0.4 mg Tablet [Nitrostat 0.4 MG Tablet] 0.4 mg SL Q5MIN PRN MR X 3 PRN 09/15/17 [History] Acetaminophen/Diphenhydramine [Tylenol Pm Ex-Strength Caplet] 2 each PO BID PRN PRN 01/18/18 [History] Budesonide/Formoterol Fumarate [Symbicort 80-4.5 Mcg Inhaler] 1 puff IH DAILY [History] Clopidogrel Bisulfate [Clopidogrel] 75 mg PO DAILY 01/18/18 [History] Diclofenac Sodium 75 mg PO BID 01/18/18 [History] Fluticasone/Salmeterol [Advair 250-50 Diskus] 1 puff IH DAILY 01/18/18 [History] Lorazepam 0.5 mg [Ativan 0.5 MG] 0.5 mg PO BID PRN PRN 01/18/18 [History] Metoprolol Succinate 50 mg [Toprol Xl 50 MG] 50 mg PO DAILY 01/18/18 [ History] Nicotine [Nicotine Patch] 17 mg TOP DAILY 01/18/18 [History] OLANZapine [Olanzapine] 20 mg PO HS 01/18/18 [History] Sertraline HCl 50 mg [Zoloft 50 mg Tablet] 50 mg PO HS 01/18/18 [History] Potassium Chloride 10 Meq Tab* [Klor Con 10 MEQ] 10 meq PO DAILY 03/22/18 [ History] Diazepam 5 mg DAILY 04/22/18 [History] Famotidine [Pepcid] 40 mg DAILY 04/22/18 [History] Ranitidine HCl [Zantac] 150 mg BID 04/22/18 [History] Ranolazine 500 MG [Ranexa 500 MG] 500 mg BID 04/22/18 [History] Sodium Bicarbonate 2 tab BID 04/22/18 [History] Tizanidine HCl 2 mg QID 04/22/18 [History] Hx Tetanus, Diphtheria Vaccination/Date Given: Yes Hx Influenza Vaccination/Date Given: No Hx Pneumococcal Vaccination/Date Given: No Immunizations Up to Date: Yes - Review of Systems Constitutional: Weakness Eyes: No Symptoms Ears, Nose, & Throat: No Symptoms Respiratory: No Cough, No Dyspnea Cardiac: No Chest Pain, No Edema, No Syncope Abdominal/Gastrointestinal: Abdominal Pain, Diarrhea Genitourinary Symptoms: No Dysuria Musculoskeletal: No Back Pain, No Neck Pain Skin: No Rash Neurological: No Dizziness, No Focal Weakness, No Sensory Changes Psychological: No Symptoms Endocrine: No Symptoms Hematologic/Lymphatic: No Symptoms Immunological/Allergic: No Symptoms All Other Systems: Reviewed and Negative - Past Medical History Pertinent Past Medical History: Yes Neurological History: Migraines, Seizures, Other ENT History: No Pertinent History Cardiac History: Aneurysm, Hypertension, Other Respiratory History: COPD, Emphysema Endocrine Medical History: No Pertinent History Musculoskeletal History: Arthritis, Osteoporosis, Other GI Medical History: No Pertinent History History: No Pertinent History Psycho-Social History: Anxiety, Depression Female Reproductive Disorders: Cervical Cancer Other Medical History: DVT while - Past Surgical History Past Surgical History: Yes Neuro Surgical History: No Pertinent History Cardiac: Cardiac Catheterization Respiratory: Lobectomy Gastrointestinal: Hernia Repair Musculoskeletal: Amputation, Other Female Surgical History: Hysterectomy, Section Other Surgical History: 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 carpel tunnel - Social History Smoking Status: Current every day smoker How long have you smoked: yrs Exposure to second hand smoke: Yes Drug Use: none Patient Lives Alone: No Significant Family History: no pertinent family hx - Female History Hx Last Menstrual Period: post Hx Now: No - Nursing Vital Signs Nursing Vital Signs: Initial Vital Signs Temperature 97.2 F 04/22/18 10:46 Pulse Rate 81 04/22/18 10:46 Respiratory Rate 22 04/22/18 10:46 Blood Pressure 81/59 04/22/18 10:46 Pain Scale Pain Intensity 4 - Physical Exam General Appearance: mild distress, cachetic, thin Eye Exam: PERRL/EOMI, eyes nml inspection Ears, Nose, Throat Exam: dry mucous membranes Neck Exam: normal inspection, non-tender, supple, full range of motion Respiratory Exam: normal breath sounds, lungs clear, No respiratory distress Cardiovascular Exam: regular rate/rhythm, normal heart sounds, normal peripheral pulses Gastrointestinal/Abdomen Exam: tenderness (ast surgical incision) Pelvic Exam: not done Rectal Exam: not done Back Exam: normal inspection, normal range of motion, No CVA tenderness, No vertebral tenderness Extremity Exam: normal range of motion, pelvis stable, other (right leg amputee) Neurologic Exam: alert, oriented x 3, cooperative, normal mood/affect, nml cerebellar function, sensation nml, No motor deficits Skin Exam: normal color, warm, dry, other (healing vertical midabdomen incision with steristrips), No rash Lymphatic Exam: No adenopathy SpO2 Interpretation: O2 applied (97% on 4L NC) Oxygen Delivery: Nasal Cannula - Course EKG Interpreted by Me: RATE, Sinus Rhythm, NORMAL AXIS, NORMAL INTERVALS, NORMAL QRS - CT Exams Abdomen/Pelvis CT Interpretation: Tele-radiologist Report (per Dr Marinelli), No appendicitis, Other (wall thickening fo descending and sigmoid colon with dilatation and fluid levels; dilatation of CBD.) Ordered Tests: Active Orders 24 hr Category Date Time Status EKG-ER Only STAT Care 04/22/18 11:12 Active IV Insertion STAT Care 04/22/18 11:12 Active NG to Suction (Insertion) ROUTINE Care 04/22/18 14:15 Ordered ABDOMEN AND PELVIS W/0 CONTRAS [CT] Stat Exams 04/22/18 13:30 Taken CBC W DIFF Stat Lab 04/22/18 11:25 Completed CMP Routine Lab 04/22/18 11:25 Completed HCG QUALITATIVE,SERUM Stat Lab 04/22/18 11:25 Completed LIPASE Routine Lab 04/22/18 11:25 Completed Lactic Acid Stat Lab 04/22/18 11:12 Completed Lactic Acid Stat Lab 04/22/18 13:37 Ordered Manual Differential NC Stat Lab 04/22/18 11:25 Completed TROPONIN Q3H Lab 04/22/18 11:25 Completed TROPONIN Q3H Lab 04/22/18 14:15 Ordered TROPONIN Q3H Lab 04/22/18 17:15 Ordered TROPONIN Q3H Lab 04/22/18 20:15 Ordered TROPONIN Q3H Lab 04/22/18 23:15 Ordered UA W/ MICROSCOPIC Stat Lab 04/22/18 11:40 Completed Respiratory Nebulizer STAT RT 04/22/18 12:04 Completed Respiratory Therapy Assessment DAILY RT 04/22/18 12:14 Active Medication Summary Discontinued Medications Generic Name Dose Route Start Last Admin Trade Name Freq PRN Reason Stop Dose Admin Albuterol/Ipratropium 3 ml 04/22/18 12:04 04/22/18 12:13 Duoneb 0.5-3 Mg/3 Ml Neb IH 04/22/18 12:05 3 ml STAT ONE Administration Albuterol/Ipratropium Confirm 04/22/18 12:08 Duoneb 0.5-3 Mg/3 Ml Neb Administered 04/22/18 12:09 Dose 3 ml IH .STK-MED ONE Famotidine 20 mg 04/22/18 11:12 04/22/18 11:19 Pepcid 20 Mg Vial IV 04/22/18 11:13 20 mg STAT ONE Administration Famotidine Confirm 04/22/18 11:16 Pepcid 20 Mg Vial Administered 04/22/18 11:17 Dose 20 mg IV .STK-MED ONE Sodium Chloride 1,000 mls @ 999 mls/hr 04/22/18 11:12 04/22/18 12:53 Sodium Chloride 0.9% 1000 Ml IV 04/22/18 12:12 Infused .Q1H1M STA Infusion Sodium Chloride Confirm 04/22/18 11:16 Sodium Chloride 0.9% 1000 Ml Administered 04/22/18 11:17 Dose 1,000 mls @ ud .ROUTE .STK-MED ONE Piperacillin Sod/Tazobactam Sod 3.375 gm in 100 mls @ 200 mls/hr 04/22/18 12: 19 04/22/18 13:12 Zosyn 3.375gm/100 Ml D5w IV 04/22/18 12:48 125 ml/hr STAT STA 125 mls/hr Administration Sodium Chloride Confirm 04/22/18 13:10 Sodium Chloride 0.9% 1000 Ml Administered 04/22/18 13:11 Dose 1,000 mls @ ud .ROUTE .STK-MED ONE Piperacillin Sod/Tazobactam Sod Confirm 04/22/18 13:14 Zosyn 3.375gm/100 Ml D5w Administered 04/22/18 13:15 Dose 3.375 gm in 100 mls @ ud IV .STK-MED ONE Sodium Chloride Confirm 04/22/18 14:10 Sodium Chloride 0.9% 1000 Ml Administered 04/22/18 14:11 Dose 1,000 mls @ ud .ROUTE .STK-MED ONE Morphine Sulfate 4 mg 04/22/18 11:12 04/22/18 11:18 Morphine Sulfate 4 Mg Inj IV 04/22/18 11:13 4 mg STAT ONE Administration Morphine Sulfate Confirm 04/22/18 11:16 Morphine Sulfate 4 Mg Inj Administered 04/22/18 11:17 Dose 4 mg .ROUTE .STK-MED ONE Ondansetron HCl 4 mg 04/22/18 11:12 04/22/18 11:19 Zofran 4 Mg/2 Ml Vial IV 04/22/18 11:13 4 mg STAT ONE Administration Ondansetron HCl Confirm 04/22/18 11:16 Zofran 4 Mg/2 Ml Vial Administered 04/22/18 11:17 Dose 4 mg .ROUTE .STK-MED ONE Lab/Rad Data: Laboratory Result Diagrams 04/22/18 11:25 04/22/18 11:25 Laboratory Results 04/22/18 04/22/18 04/22/18 Range/Units 11:40 11:25 11:25 WBC (4.0-10.5) K/mm3 RBC (4.1-5.4) M/mm3 Hgb (12.0-16.0) gm/dl Hct (35-47) % MCV (78-100) fl MCH (26-32) pg MCHC (32-36) g/dl RDW (11.5-14.0) % Plt Count (150-450) K/mm3 MPV (6-9.5) fl Absolute Granulocytes (1.4-6.9) Segmented Neutrophils (36.0-66.0) % Band Neutrophils (0.0-2.0) % Lymphocytes (Manual) (24-44) % Monocytes (Manual) (0.0-12.0) % Toxic Granulation Platelet Estimate (NORMAL) RBC Morphology Sodium 136 L (137-145) mmol/L Potassium 3.9 (3.5-5.1) mmol/L Chloride 106 (98-107) mmol/L Carbon Dioxide 16 L (22-30) mmol/L Anion Gap 18.3 H (5-15) MEQ/L BUN 59 H (7-17) mg/dL Creatinine 2.03 H (0.52-1.04) mg/dL Estimated GFR 27.3 ML/MIN Glucose 121 H (74-106) mg/dL Lactic Acid (0.4-2.0) Calcium 7.9 L (8.4-10.2) mg/dL Total Bilirubin 0.50 (0.2-1.3) mg/dL AST 14 (14-36) U/L ALT 20 (0-35) U/L Alkaline Phosphatase 140 H (38-126) U/L Troponin I < 0.012 (0.000-0.034) ng/mL Serum Total Protein 5.6 L (6.3-8.2) g/dL Albumin 2.9 L (3.5-5.0) g/dL Lipase 86 (23-300) U/L Serum , Qual NEGATIVE (Negative) Ur Collection Type CATH Urine Color YELLOW (YELLOW) Urine Appearance HAZY (CLEAR) Urine pH 5.0 (5-6) Ur Specific [place] 1.020 (1.005-1.025) Urine Protein TRACE (Negative) Urine Ketones NEGATIVE (NEGATIVE) Urine Blood NEGATIVE (0-5) Karri/ul Urine Nitrite NEGATIVE (NEGATIVE) Urine Bilirubin NEGATIVE (NEGATIVE) Urine Urobilinogen NORMAL (0-1) mg/dL Ur Leukocyte Esterase TRACE (NEGATIVE) Urine Microscopic WBC 0-2 (0-5) /HPF Ur Epithelial Cells RARE (FEW) /HPF Urine Culture Reflexed NO (NO) Urine Glucose NEGATIVE (NEGATIVE) mg/dL Specimen Received 1140 04/22/18 04/22/18 04/22/18 Range/Units 11:25 11:12 WBC 41.3 H* (4.0-10.5) K/mm3 RBC 3.26 L (4.1-5.4) M/mm3 Hgb 10.4 L (12.0-16.0) gm/dl Hct 30.7 L (35-47) % MCV 94.2 (78-100) fl MCH 31.9 (26-32) pg MCHC 33.9 (32-36) g/dl RDW 15.3 H (11.5-14.0) % Plt Count 507 H (150-450) K/mm3 MPV 10.4 H (6-9.5) fl Absolute Granulocytes 36.36 H (1.4-6.9) Segmented Neutrophils 70 H (36.0-66.0) % Band Neutrophils 16 H (0.0-2.0) % Lymphocytes (Manual) 5 L (24-44) % Monocytes (Manual) 9 (0.0-12.0) % Toxic Granulation 2+ Platelet Estimate NORMAL (NORMAL) RBC Morphology ABNORMAL Sodium (137-145) mmol/L Potassium (3.5-5.1) mmol/L Chloride (98-107) mmol/L Carbon Dioxide (22-30) mmol/L Anion Gap (5-15) MEQ/L BUN (7-17) mg/dL Creatinine (0.52-1.04) mg/dL Estimated GFR ML/MIN Glucose (74-106) mg/dL Lactic Acid 2.2 H (0.4-2.0) Calcium (8.4-10.2) mg/dL Total Bilirubin (0.2-1.3) mg/dL AST (14-36) U/L ALT (0-35) U/L Alkaline Phosphatase (38-126) U/L Troponin I (0.000-0.034) ng/mL Serum Total Protein (6.3-8.2) g/dL Albumin (3.5-5.0) g/dL Lipase (23-300) U/L Serum , Qual (Negative) Ur Collection Type Urine Color (YELLOW) Urine Appearance (CLEAR) Urine pH (5-6) Ur Specific [place] (1.005-1.025) Urine Protein (Negative) Urine Ketones (NEGATIVE) Urine Blood (0-5) Karri/ul Urine Nitrite (NEGATIVE) Urine Bilirubin (NEGATIVE) Urine Urobilinogen (0-1) mg/dL Ur Leukocyte Esterase (NEGATIVE) Urine Microscopic WBC (0-5) /HPF Ur Epithelial Cells (FEW) /HPF Urine Culture Reflexed (NO) Urine Glucose (NEGATIVE) mg/dL Specimen Received - Progress Progress Note: 04/22/18 14:[address] Randall who recommends NG to decompress stomach. Dr Tolentino accepts pt to ICU at [facility]. Discussed with : Tonia Counseled pt/family regarding: diagnosis, rad results - Departure Time of Disposition: 14:21 Departure Disposition: Transfer (transfer to [facility] per Dr Tolentino.) Clinical Impression: Abdominal pain, Acute distention of stomach, Leukocytosis Condition: Fair Critical Care Time: No Referrals: JC FISHER [Primary Care Provider] -
[2018-04-22] MEDS ORDERED: MORPHINE SULFATE 4 MG INJ ONE (11:16)
[2018-04-22] MEDS ORDERED: Sodium Chloride 0.9% 1000 ML 1,000 ML ONE ×3 (11:16→14:10)
[2018-04-22] MEDS ORDERED: Zofran 4 MG/2 ML VIAL ONE (11:16)
[2018-04-22 11:38] LABS: Lactic Acid 2.2 (0.4-2.0)
[2018-04-22 11:47] LABS: Appearance HAZY (CLEAR)
[2018-04-22 11:48] LABS: Bilirubin NEGATIVE (NEGATIVE); Blood NEGATIVE Ery/ul (0-5); Glucose NEGATIVE (NEGATIVE); Ketones NEGATIVE (NEGATIVE); Leukocyte Esterase TRACE (NEGATIVE); Nitrite NEGATIVE (NEGATIVE); Protein,Urine Dip TRACE (Negative); Urobilinogen NORMAL mg/dL (0-1)
[2018-04-22 11:55] LABS: Granulocyte Absolute (ANC) 36.36 (1.4-6.9); Hematocrit 30.7 % (35-47); Hemoglobin 10.4 gm/dl (12.0-16.0); Mean Cell Volume 94.2 fl (78-100); Mean Corpuscular Hemoglobin 31.9 pg (26-32); Mean Corpuscular Hgb Concent. 33.9 g/dl (32-36); Mean Platelet Volume 10.4 fl (6-9.5); Platelet Count 507 K/mm3 (150-450); Red Blood Count 3.26 M/mm3 (4.1-5.4); Red Cell Distribution Width 15.3 % (11.5-14.0)
[2018-04-22 12:00] LABS: White Blood Count 41.3 K/mm3 (4.0-10.5)
[2018-04-22] MEDS ORDERED: DUONEB 0.5-3 MG/3 ml Neb IH ONE ×2 (12:04→12:08)
[2018-04-22 12:11] LABS: ALBUMIN 2.9 g/dL (3.5-5.0); ALKALINE PHOSPHATASE 140 U/L (38-126); ANION GAP 18.3 MEQ/L (5-15); BLOOD UREA NITROGEN 59 mg/dL (7-17); CHLORIDE 106 mmol/L (98-107); Calcium 7.9 mg/dL (8.4-10.2); Creatinine 1 2.03 mg/dL (0.52-1.04); Glucose 121 mg/dL (74-106); LIPASE 86 U/L (23-300); Potassium 3.9 mmol/L (3.5-5.1); SGOT/AST 14 U/L (14-36); SGPT/ALT 20 U/L (0-35); SODIUM 136 mmol/L (137-145); Total Protein 5.6 g/dL (6.3-8.2)
[2018-04-22 12:12] LABS: Carbon Dioxide 16 mmol/L (22-30); TROPONIN < 0.012 ng/mL (0.000-0.034)
[2018-04-22 12:17] VITALS: O2SAT 97
[2018-04-22] MEDS ORDERED: Zosyn 3.375GM/100 Ml D5W 3.375 GM/100 ML IVPB IV STA (12:19)
[2018-04-22 12:24] LABS: BAND 16 % (0.0-2.0); Lymphocytes 5 % (24-44); Monocyte 9 % (0.0-12.0); Neutrophils 70 % (36.0-66.0); Platelet Estimate NORMAL (NORMAL); Total Cells Counted 100; Toxic Granulation 2+
[2018-04-22 12:26] LABS: WBC 0-2 /HPF (0-5)
[2018-04-22 12:27] LABS: Epithelial Cells RARE /HPF (FEW)
[2018-04-22] MEDS ORDERED: Zosyn 3.375GM/100 Ml D5W 3.375 GM/100 ML IVPB IV ONE (13:14)
[2018-04-22 14:54] LABS: Lactic Acid 5.3 (0.4-2.0)
[2018-04-22 16:50] VITALS: BP 77/48; PULSE 72
[2018-04-22] MEDS ORDERED: Sodium Chloride 0.9% 500 ML 500 ML IV ONE (16:58)
--- NOTE | 2018-04-22 22:04 | XRAY ---
Indication: Abdominal pain. Elevated WBC. History bowel obstruction. Multiple contiguous axial images obtained through the abdomen and pelvis without contrast as ordered. Comparison: March 22, 2018. Lung bases demonstrates bibasilar atelectasis/scarring. No infiltrate or effusion. Heart is not enlarged. New small hiatal hernia. Stomach is fluid distended. Noncontrasted stomach and bowel loops appear nonobstructed. New descending colon suture material. Descending and sigmoid colon fluid distended favoring diarrhea. Query mild descending and sigmoid colonic wall thickening, possible colitis. Interval cholecystectomy. No free fluid/air. Remaining liver, pancreas, spleen, adrenal glands, kidneys, ureters, and bladder appear unremarkable for noncontrast exam. There remains moderate aortoiliac calcifications without AAA and hysterectomy. Impression: 1. New fluid distended descending and sigmoid colon favoring diarrhea. Query bowel wall thickening, possible colitis. 2. Status post cholecystectomy and ascending colon resection. 2. Remaining CT abdomen/pelvis without contrast exam is negative. Comment: Preliminary interpretation was made by [facility]. No critical discrepancy. CTDI 8.14
== END 2018-04-22 16:00 | disposition short-term general hospital (02) ==
LOC: ED 10:45
DX: R10.9 Unspecified abdominal pain (principal); K31.0 Acute dilatation of stomach; D72.829 Elevated white blood cell count, unspecified; Z79.899 Other long term (current) drug therapy; Z98.890 Other specified postprocedural states
CPT/HCPCS: 36000; 36415; 51702; 74176; 80053; 81000; 83605; 83690; 84484; 84703; 85025; 93005; 94250; 94640; 96360; 96361; 96365; 96374; 96375; 99285; P9612; J2270; J2405; J2543; A9270-GY